=== PATIENT | female | born 1945 | race Caucasian/White ===

== ENCOUNTER 2016-10-13 15:41 | Inpatient (IN) | payer MEDICARE ==
[2016-10-13] MEDS ORDERED: Ondansetron 4 MG/2 ML SDV IVPUSH ONE (15:46)
[2016-10-13] MEDS ORDERED: Sodium Chloride 0.9% 10 ML Syringe FLUSH PRN (15:46)
[2016-10-13] MEDS ORDERED: Albuterol/Ipratropium 3.0-0.5 MG/3 ML Neb Soln NEB ONE (15:49)
[2016-10-13] MEDS ORDERED: Sodium Chloride 0.9% 1,000 ML IV SCH (16:00)
--- NOTE | 2016-10-13 16:02 | EDM.PDOC ---
ED HPI GI/ABDOMINAL - General Chief Complaint: Gastrointestinal Problem Stated Complaint: Diarrhea; N/V; Fever Time Seen by Provider: 10/13/16 15:43 Source of Information: Reports: Patient, Family, RN, RN notes reviewed History Limitations: Reports: No limitations - History of Present Illness INITIAL COMMENTS - FREE TEXT/NARRATIVE: Patient presents to the ED at [facility] with a one day history of fever, N/ V, and severe diarrhea. Patient states she feels chronically weak. She currently denies any chest pain. She does complain of SOB because she did not take her COPD meds this morning. She states he abdomen has been very crampy over the last 24 hours. She does have a cough, but states it from her COPD. She states she had several watery, foul-smelling stool since yesterday. She is not sure how many times she has vomited. She states her appetite has been poor. She has not been staying well hydrated over the past few days since she has been feeling too sick. - Related Data Allergies/ADRs: Allergies Allergy/AdvReac Type Severity Reaction Status Date / Time hydrocodone AdvReac Dizziness Verified 10/13/16 15:48 meperidine HCl [From Demerol] AdvReac Vomiting Verified 10/13/16 15:48 tramadol AdvReac Nausea Verified 10/13/16 15:48 Home Meds: Home Meds Albuterol [Proair HFA] 1 puff INH Q4HR PRN 12/24/14 [History] Aspirin [Ecotrin] 162.5 mg PO DAILY 12/24/14 [History] Cimetidine 200 mg PO BID 12/24/14 [History] Denosumab [Prolia] 60 mg SUBCUT ASDIRECTED 12/24/14 [History] Docusate Sodium [Colace] 100 mg PO DAILY 12/24/14 [History] Hydroxychloroquine Sulfate [Plaquenil] 200 mg PO BID 12/24/14 [History] Simvastatin [Zocor] 10 mg PO BEDTIME tablet 12/24/14 [Rx] predniSONE [Prednisone] 1 tab PO DAILY 12/24/14 [History] sulfaSALAzine 1,500 mg PO BID tablet 12/24/14 [Rx] Calcium Carbonate [Calcium] 1,000 mg PO BID 10/29/15 [History] Cholecalciferol (Vitamin D3) [Vitamin D3] 1,000 unit PO DAILY 10/29/15 [History] Gabapentin [Neurontin] 300 mg PO TID 10/29/15 [History] Leflunomide [Arava] 10 mg PO DAILY 06/11/16 [History] Ferrous Sulfate 325 mg PO WITHBREAKFAST #30 tablet 07/17/16 [Rx] Tiotropium [Spiriva HandiHaler] 18 mcg INH DAILY 10/13/16 [History] Past Medical History HEENT History: Reports: Epistaxis Cardiovascular History: Reports: High cholesterol, Other (see below) Other Cardiovascular History: proxysmal ventricular tachycardia, mitral stenosis , mitral insufficiency, chronic chest pain Respiratory History: Reports: COPD, Other (see below) Other Respiratory History: mycobacterium avium-intracellulare complex Gastrointestinal History: Reports: GERD, Hemorrhoids, Pancreatitis Genitourinary History: Reports: None 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: Musculoskeletal History: Reports: Osteoporosis, RA, Other (see below) Other Musculoskeletal History: chronic pain, sciatic pain, left shoulder pain, radicular leg pain Neurological History: Reports: CVA Psychiatric History: Reports: None Endocrine/Metabolic History: Reports: None Hematologic History: Reports: Anemia Immunologic History: Reports: Immunosuppression (on arava, sulfasalazine, and plaquenil for RA) Oncologic (Cancer) History: Reports: None Dermatologic History: Reports: None - Infectious Disease History Infectious Disease History: Reports: Other (see below) (history of MAC) - Past Surgical History HEENT Surgical History: Reports: Cataract surgery, Tonsillectomy, Other (see below) Other HEENT Surgeries/Procedures: Vocal cord surgery, nasal sinus endoscopy Respiratory Surgical History: Reports: Lung Resection, Other (see below) Other Respiratory Surgeries/Procedures: Left upper lung GI Surgical History: Reports: Cholecystectomy Female Surgical History: Reports: Tubal ligation Dermatological Surgical History: Reports: None Social & Family History - Family History Family Medical History: Noncontributory Respiratory: Reports: Asthma, COPD Endocrine/Metabolic: Reports: Diabetes, type II Oncologic: Reports: Pancreatic - Tobacco Use Smoking Status *Q: Former Smoker Years of Tobacco use: 40 Packs/Tins Daily: 0.5 Used Tobacco, but Quit: Yes Month Tobacco Last Used: 08/25/2007 Second Hand Smoke Exposure: No - Caffeine Use Caffeine Use: Reports: Coffee - Alcohol Use Days Per Week of Alcohol Use: 0 - Recreational Drug Use Recreational Drug Use: No - Living Situation & Occupation Living situation: Reports: , with significant other ED ROS GENERAL - Review of Systems Review Of Systems: See Below Constitutional: Reports: fever, weakness, decreased appetite, weight loss. Denies: chills HEENT: Reports: No symptoms Respiratory: Reports: shortness of breath, wheezing, cough Cardiovascular: Denies: Chest pain, Palpitations GI/Abdominal: Reports: Abdominal pain, Diarrhea, Nausea, Vomiting. Denies: Black stool, Bloody stool Skin: Reports: no symptoms Neurological: Reports: no symptoms. Denies: dizziness, headache, numbness, paresthesia, tingling ED EXAM, GI/ABD - Physical Exam Exam: See Below Exam Limited By: No limitations General Appearance: alert, no apparent distress, thin, cachetic Respiratory/Chest: no respiratory distress, decreased breath sounds, wheezing Cardiovascular: no edema, tachycardia (rhythm regular) GI/Abdominal: soft, hyperactive bowel sounds, tenderness. No: distention, guarding, rebound Extremities: pallor Neurological: alert, oriented, slow to respond Skin Exam: Warm, Dry, Intact, No rash EKG INTERPRETATION EKG Date: 10/13/16 Time: 16:04 Rhythm: NSR Rate (beats/min): 107 [place]: normal P-wave: present QRS: normal ST-T: normal QT: normal WA/PQ Interval: 0.14 Comparison: NA - no prior EKG EKG Interpretation Comments: 1. Sinus Tachycardia 2. Lead unsuitable for analysis: V2 3. Left ventricular hypertrophy 4. Inferior/Lateral ST-T changes are probably due to ventricular hypertrophy Course - Vital Signs Last Recorded V/S: Last Vital Signs Temp 38.4 C H 10/13/16 15:57 Pulse 119 H 10/13/16 15:57 Resp 20 10/13/16 15:57 BP 149/88 H 10/13/16 15:57 Pulse Ox 93 L 10/13/16 15:57 - Orders/Labs/Meds Orders: Active Orders 24 hr Category Date Time Status EKG 12 Lead [EKG Documentation Completion] [RC] STAT Care 10/13/16 15:46 Active RT Aerosol Therapy [RC] ASDIRECTED Care 10/13/16 15:49 Active Abdomen Series w Chest 1V [CR] Stat Exams 10/13/16 17:10 Ordered CULTURE BLOOD [BC] Stat Lab 10/13/16 16:20 Results CULTURE BLOOD [BC] Stat Lab 10/13/16 16:30 Results Sodium Chloride 0.9% [Normal Saline] 1,000 ml Med 10/13/16 16:00 Active IV ASDIRECTED Sodium Chloride 0.9% [Saline Flush] Med 10/13/16 15:46 Active 10 ml FLUSH ASDIRECTED PRN Blood Culture x2 Reflex Set [OM.PC] Stat Oth 10/13/16 16:09 Ordered Peripheral IV Insertion Adult [OM.PC] Routine Oth 10/13/16 15:46 Ordered Medication Orders Sodium Chloride (Normal Saline) 1,000 mls @ 999 mls/hr IV ASDIRECTED YOUSUF Last Admin: 10/13/16 16:16 Dose: 999 mls/hr Sodium Chloride (Saline Flush) 10 ml FLUSH ASDIRECTED PRN PRN Reason: Keep Vein Open Labs: Laboratory Tests 10/13/16 10/13/16 10/13/16 Range/Units 16:20 16:20 16:30 WBC 8.0 (4.0-10.0) x10^3/uL RBC 4.15 (4.00-5.50) x10^6/uL Hgb 12.2 (12.0-16.0) g/dL Hct 38.7 (33.0-47.0) % MCV 93.3 H (78.0-93.0) fL MCH 29.4 (26.0-32.0) pg MCHC 31.5 L (32.0-36.0) g/dL RDW Coeff of Cornelius 14.5 (10.0-15.0) % Plt Count 202 (130-400) x10^3/uL Neut % (Auto) 67.6 (50.0-80.0) % Lymph % (Auto) 18.3 L (25.0-50.0) % Bay % (Auto) 13.0 H (2.0-11.0) % Eos % (Auto) 0.8 (0.0-4.0) % Baso % (Auto) 0.3 (0.2-1.2) % POC ABG pH (7.35-7.45) POC ABG pCO2 (35-45) mmHG POC ABG pO2 (80-105) mmHG POC ABG HCO3 (22-26) mmol/L POC ABG Total CO2 (23-27) mmol/L POC ABG O2 Sat (95-98) % POC ABG Base Excess (-2-3) mmol/L POC FiO2 Sodium 138 (136-145) mmol/L Potassium 3.9 (3.5-5.1) mmol/L Chloride 103 (98-107) mmol/L Carbon Dioxide 16 L (21-32) mmol/L BUN 26 H (7-18) mg/dL Creatinine 1.1 H (0.55-1.02) mg/dL Est Cr Clr Drug Dosing 30.66 mL/min Estimated GFR (MDRD) 49 Glucose 69 L (74-106) mg/dL Lactic Acid 3.1 H (0.4-2.0) mmol/L Calcium 8.1 L (8.5-10.1) mg/dL Corrected Calcium 8.58 (8.5-10.1) mg/dL Phosphorus 3.5 (2.6-4.7) mg/dL Magnesium 1.5 L (1.8-2.4) mg/dL Total Bilirubin 0.4 (0.2-1.0) mg/dL AST 32 (15-37) U/L ALT 17 (14-59) U/L Alkaline Phosphatase 48 (46-116) U/L C-Reactive Protein 8.9 H (<=0.9) mg/dL Total Protein 7.0 (6.4-8.2) g/dL Albumin 3.4 (3.4-5.0) g/dL Globulin 3.6 Albumin/Globulin Ratio 0.94 Amylase 85 (25-115) U/L Lipase 176 (73-393) U/L POC Result Comm Urine Color (YELLOW) Urine Appearance (CLEAR) Urine pH (5.0-8.0) Ur Specific [place] Urine Protein (NEGATIVE) mg/dL Urine Glucose (UA) (NEGATIVE) mg/dL Urine Ketones (NEGATIVE) mg/dL Urine Occult Blood (NEGATIVE) Urine Nitrite (NEGATIVE) Urine Bilirubin (NEGATIVE) Urine Urobilinogen (0.2) EU/dL Ur Leukocyte Esterase (NEGATIVE) Urine RBC (NOT SEEN) /HPF Urine WBC (NOT SEEN) /HPF Ur Squamous Epith Cells (NEGATIVE) /HPF Urine Bacteria (NEGATIVE) /HPF Hyaline Casts (NEGATIVE) /HPF Urine Mucus (NEGATIVE) /LPF 10/13/16 10/13/16 Range/Units 16:46 17:17 WBC (4.0-10.0) x10^3/uL RBC (4.00-5.50) x10^6/uL Hgb (12.0-16.0) g/dL Hct (33.0-47.0) % MCV (78.0-93.0) fL MCH (26.0-32.0) pg MCHC (32.0-36.0) g/dL RDW Coeff of Cornelius (10.0-15.0) % Plt Count (130-400) x10^3/uL Neut % (Auto) (50.0-80.0) % Lymph % (Auto) (25.0-50.0) % Bay % (Auto) (2.0-11.0) % Eos % (Auto) (0.0-4.0) % Baso % (Auto) (0.2-1.2) % POC ABG pH 7.283 L* (7.35-7.45) POC ABG pCO2 27 L (35-45) mmHG POC ABG pO2 58 L* (80-105) mmHG POC ABG HCO3 13 L (22-26) mmol/L POC ABG Total CO2 13 L (23-27) mmol/L POC ABG O2 Sat 87 L (95-98) % POC ABG Base Excess -14 L (-2-3) mmol/L POC FiO2 0.21 Sodium (136-145) mmol/L Potassium (3.5-5.1) mmol/L Chloride (98-107) mmol/L Carbon Dioxide (21-32) mmol/L BUN (7-18) mg/dL Creatinine (0.55-1.02) mg/dL Est Cr Clr Drug Dosing mL/min Estimated GFR (MDRD) Glucose (74-106) mg/dL Lactic Acid (0.4-2.0) mmol/L Calcium (8.5-10.1) mg/dL Corrected Calcium (8.5-10.1) mg/dL Phosphorus (2.6-4.7) mg/dL Magnesium (1.8-2.4) mg/dL Total Bilirubin (0.2-1.0) mg/dL AST (15-37) U/L ALT (14-59) U/L Alkaline Phosphatase (46-116) U/L C-Reactive Protein (<=0.9) mg/dL Total Protein (6.4-8.2) g/dL Albumin (3.4-5.0) g/dL Globulin Albumin/Globulin Ratio Amylase (25-115) U/L Lipase (73-393) U/L POC Result Comm Called critical res Urine Color Yellow (YELLOW) Urine Appearance Clear (CLEAR) Urine pH 6.0 (5.0-8.0) Ur Specific [place] >=1.030 Urine Protein 30 H (NEGATIVE) mg/dL Urine Glucose (UA) Negative (NEGATIVE) mg/dL Urine Ketones 80 H (NEGATIVE) mg/dL Urine Occult Blood Negative (NEGATIVE) Urine Nitrite Negative (NEGATIVE) Urine Bilirubin Moderate H (NEGATIVE) Urine Urobilinogen 0.2 (0.2) EU/dL Ur Leukocyte Esterase Negative (NEGATIVE) Urine RBC 0-5 (NOT SEEN) /HPF Urine WBC 0-5 (NOT SEEN) /HPF Ur Squamous Epith Cells Rare (NEGATIVE) /HPF Urine Bacteria Not seen (NEGATIVE) /HPF Hyaline Casts Rare H (NEGATIVE) /HPF Urine Mucus Few H (NEGATIVE) /LPF Meds: Medications Generic Name Dose Route Start Last Admin Trade Name Freq PRN Reason Stop Dose Admin Sodium Chloride 1,000 mls @ 999 mls/hr 10/13/16 16:00 10/13/16 16:16 Normal Saline IV 999 mls/hr ASDIRECTED YOUSUF Administration Sodium Chloride 10 ml 10/13/16 15:46 Saline Flush FLUSH ASDIRECTED PRN Keep Vein Open Discontinued Medications Generic Name Dose Route Start Last Admin Trade Name Freq PRN Reason Stop Dose Admin Albuterol/Ipratropium 3 ml 10/13/16 15:49 10/13/16 16:16 Duoneb 3.0-0.5 Mg/3 Ml NEB 10/13/16 15:50 3 ml ONETIME ONE Administration Ondansetron HCl 4 mg 10/13/16 15:46 10/13/16 16:16 Zofran IVPUSH 10/13/16 15:47 4 mg ONETIME ONE Administration Departure - Departure Time of Disposition: 17:30 Disposition: Admitted As Inpatient 64 Condition: fair Clinical Impression: Influenza A, Dehydration fever, COPD exacerbation, Diarrhea in adult patient Nausea & vomiting Qualifiers: Vomiting type: bilious vomiting Qualified Code(s): R11.14 - Bilious vomiting Referrals: Annabel Seals DO [Primary Care Provider] - ED Communication - ED Communication Date/Time Date: 10/13/16 Time Called: 17:29 - Discussed Case With (1) Discussed Case With (1): Admitting Provider Person/s Notified (1): Annabel Seals - Conversation Summary Admitting Provider Agreed to Patient's Admission: Yes Summary Comment: Patient will be admitted acute - Problem List Review Problem List Initiated/Reviewed/Updated: Yes - My Orders Last 24 Hours: My Active Orders 10/13/16 15:46 EKG 12 Lead [EKG Documentation Completion] [RC] STAT Sodium Chloride 0.9% [Saline Flush] 10 ml FLUSH ASDIRECTED PRN Peripheral IV Insertion Adult [OM.PC] Routine 10/13/16 15:49 RT Aerosol Therapy [RC] ASDIRECTED 10/13/16 16:00 Sodium Chloride 0.9% [Normal Saline] 1,000 ml IV ASDIRECTED 10/13/16 16:09 Blood Culture x2 Reflex Set [OM.PC] Stat 10/13/16 16:20 CULTURE BLOOD [BC] Stat 10/13/16 16:30 CULTURE BLOOD [BC] Stat 10/13/16 17:10 Abdomen Series w Chest 1V [CR] Stat - Assessment/Plan Admission H&P: Please use this note as an admission H&P Last 24 Hours: My Active Orders 10/13/16 15:46 EKG 12 Lead [EKG Documentation Completion] [RC] STAT Sodium Chloride 0.9% [Saline Flush] 10 ml FLUSH ASDIRECTED PRN Peripheral IV Insertion Adult [OM.PC] Routine 10/13/16 15:49 RT Aerosol Therapy [RC] ASDIRECTED 10/13/16 16:00 Sodium Chloride 0.9% [Normal Saline] 1,000 ml IV ASDIRECTED 10/13/16 16:09 Blood Culture x2 Reflex Set [OM.PC] Stat 10/13/16 16:20 CULTURE BLOOD [BC] Stat 10/13/16 16:30 CULTURE BLOOD [BC] Stat 10/13/16 17:10 Abdomen Series w Chest 1V [CR] Stat
[2016-10-13] MEDS: Oseltamivir 75 MG Cap PO SCH ×2 (17:45→19:54)
[2016-10-13] MEDS ORDERED: Magnesium Sulfate/Water 2 GM in Premix Bag 1 BAG IV ONE (18:05)
[2016-10-13] MEDS ORDERED: Ondansetron 4 MG/2 ML SDV IVPUSH PRN (18:07)
[2016-10-13] MEDS ORDERED: Albuterol/Ipratropium 3.0-0.5 MG/3 ML Neb Soln NEB PRN (18:08)
[2016-10-13] MEDS ORDERED: Promethazine 25 MG Tab PO PRN (18:20)
[2016-10-13] MEDS ORDERED: Acetaminophen 325 MG Tab PO PRN (18:20)
[2016-10-13] MEDS: Lactated Ringers 1,000 ML IV SCH (18:35)
[2016-10-13] MEDS: methylPREDNISolone Sodium Succinate 40 MG/1 ML SDV IVPUSH SCH (18:38)
--- NOTE | 2016-10-13 18:38 | PCM.HP ---
H&P History of Present Illness - General Date of Service: 10/13/16 Source of Information: Patient History Limitations: Reports: No limitations - History of Present Illness Initial Comments - Free Text/Narative: Symptoms started 48 hrs ago with vomiting and diarrhea, diarrhea was frequent and watery, she even had an incontinent stool in the ER. She denies stomach pain currently she hasn't been able to eating anything or take her pills all day. She has been dry heaving and started with fever and chills in the last day. She had a sore throat and cough and felt SOB today but is better now after a neb in the ER. She feels weak. She did have her flu shot this year. She is on immunosuppression for RA. She has lost weight over the last few days. Duration of Symptoms: Reports: Day(s): Context: Denies: sick contact Associated Symptoms: Reports: cough, cough w sputum, fever/chills, loss of appetite, malaise, nausea/vomiting, shortness of breath, weakness. Denies: confusion, chest pain - Related Data Allergies/Adverse Reactions: Allergies Allergy/AdvReac Type Severity Reaction Status Date / Time hydrocodone AdvReac Dizziness Verified 10/13/16 17:59 meperidine HCl [From Demerol] AdvReac Vomiting Verified 10/13/16 17:59 tramadol AdvReac Nausea Verified 10/13/16 17:59 Home Medications: Home Meds Albuterol [Proair HFA] 1 puff INH Q4HR PRN 12/24/14 [History] Aspirin [Ecotrin] 162.5 mg PO DAILY 12/24/14 [History] Cimetidine 0 mg PO BID 12/24/14 [History] Denosumab [Prolia] 60 mg SUBCUT ASDIRECTED 12/24/14 [History] Docusate Sodium [Colace] 100 mg PO DAILY 12/24/14 [History] Hydroxychloroquine Sulfate [Plaquenil] 200 mg PO BID 12/24/14 [History] Simvastatin [Zocor] 10 mg PO BEDTIME tablet 12/24/14 [Rx] predniSONE [Prednisone] 1 tab PO DAILY 12/24/14 [History] sulfaSALAzine 1,500 mg PO BID tablet 12/24/14 [Rx] Calcium Carbonate [Calcium] 1,000 mg PO BID 10/29/15 [History] Cholecalciferol (Vitamin D3) [Vitamin D3] 1,000 unit PO DAILY 10/29/15 [History] Gabapentin [Neurontin] 300 mg PO TID 10/29/15 [History] Leflunomide [Arava] 10 mg PO DAILY 06/11/16 [History] Diltiazem [Cardizem] 30 mg PO BID 10/13/16 [History] Iodine [Kelp] 0 mcg PO ASDIRECTED 10/13/16 [History] Tiotropium [Spiriva HandiHaler] 18 mcg INH DAILY 10/13/16 [History] Past Medical History HEENT History: Reports: Epistaxis Cardiovascular History: Reports: Afib (remote history of while ill), Heart murmur, High cholesterol, Other (see below) (mitral regurgitation) Other Cardiovascular History: proxysmal ventricular tachycardia, mitral stenosis , mitral insufficiency, chronic chest pain Respiratory History: Reports: COPD, Other (see below) Other Respiratory History: mycobacterium avium-intracellulare complex Gastrointestinal History: Reports: GERD, Hemorrhoids, Pancreatitis Genitourinary History: Reports: None [employer] History: Reports: Musculoskeletal History: Reports: Osteoporosis, RA, Other (see below) Other Musculoskeletal History: chronic pain, sciatic pain, left shoulder pain, radicular leg pain Neurological History: Reports: CVA Psychiatric History: Reports: None Endocrine/Metabolic History: Reports: None Hematologic History: Reports: Anemia Immunologic History: Reports: Immunosuppression Oncologic (Cancer) History: Reports: None Dermatologic History: Reports: None - Infectious Disease History Infectious Disease History: Reports: Influenza - Past Surgical History HEENT Surgical History: Reports: Cataract surgery, Tonsillectomy, Other (see below) Other HEENT Surgeries/Procedures: Vocal cord surgery, nasal sinus endoscopy Respiratory Surgical History: Reports: Lung Resection, Other (see below) Other Respiratory Surgeries/Procedures: Left upper lung GI Surgical History: Reports: Cholecystectomy Female Surgical History: Reports: Tubal ligation Dermatological Surgical History: Reports: None Social & Family History - Family History Family Medical History: Noncontributory Respiratory: Reports: Asthma, COPD Endocrine/Metabolic: Reports: Diabetes, type II Oncologic: Reports: Pancreatic - Tobacco Use Smoking Status *Q: Former Smoker Years of Tobacco use: 40 Packs/Tins Daily: 0.5 Used Tobacco, but Quit: Yes Month Tobacco Last Used: 08/25/2007 Second Hand Smoke Exposure: No - Caffeine Use Caffeine Use: Reports: Coffee - Alcohol Use Days Per Week of Alcohol Use: 0 - Recreational Drug Use Recreational Drug Use: No - Living Situation & Occupation Living situation: Reports: , with significant other H&P Review of Systems - Review of Systems: Review Of Systems: See Below General: Reports: fever, chills, malaise, weakness, fatigue, decreased appetite , weight loss HEENT: Reports: sore throat Pulmonary: Reports: shortness of breath, wheezing, cough, sputum. Denies: pleuritic chest pain Cardiovascular: Denies: chest pain Gastrointestinal: Reports: Diarrhea, Nausea, Vomiting. Denies: Abdominal pain Genitourinary: Reports: no symptoms Musculoskeletal: Reports: joint pain, muscle pain Skin: Denies: no symptoms Psychiatric: Reports: no symptoms Neurological: Reports: no symptoms Hematologic/Lymphatic: Reports: anemia Exam - Exam Exam: See Below - Vital Signs Vital Signs: Last Vital Signs Temp 99.3 F 10/13/16 17:55 Pulse 92 10/13/16 17:55 Resp 20 10/13/16 17:55 BP 121/88 10/13/16 17:55 Pulse Ox 93 L 10/13/16 17:55 Weight: 41.141 kg - Exam Quality Assessment: No: supplemental oxygen General: alert, oriented, cooperative HEENT: Conjunctiva clear, EOMI, Hearing intact, Mucosa moist & pink, Posterior pharynx clear, Pupils equal Neck: supple, trachea midline Lungs: Normal respiratory effort, Decreased breath sounds, Wheezing. No: Crackles, Rales Cardiovascular: regular rate, regular rhythm, systolic murmur Abdomen: normal bowel sounds, soft Back Exam: normal inspection Extremities: normal inspection Neurological: cranial nerves intact Neuro Extensive - Mental Status: alert, oriented x3, normal mood/affect, normal cognition, memory intact - Patient Data Result Diagrams: 10/13/16 16:20 10/13/16 16:20 EKG INTERPRETATION EKG Date: 10/13/16 Time: 16:04 Rhythm: NSR Rate (beats/min): 107 [place]: normal P-wave: present QRS: normal ST-T: depressed QT: normal Comparison: no change (ST depression in V5-6 may be slightly more pronounced) EKG Interpretation Comments: LVH likely contributing to ST changes *Q Meaningful Use (ADM) - VTE *Q VTE Criteria *Q: - VTE Risk Assess *Q Each Risk Factor Represents 1 Point: Serious Lung Disease Including Pneumonia, Less than 1 Month Total Score 1 Point Risk Factors: 1 Each Risk Factor Represents 2 Points: Age 60 - 74 Years Total Score 2 Point Risk Factors: 2 - Stroke *Q Stroke Criteria *Q: - AMI *Q AMI Criteria *Q: - Problem List (1) Hypomagnesemia SNOMED Code(s): 663300029 ICD Code: E83.42 - HYPOMAGNESEMIA Status: Acute Priority: High Current Visit: Yes Problem List Initiated/Reviewed/Updated: Yes Orders Last 24hrs: Active Orders 24 hr Category Date Time Status Blood Glucose Check, Bedside [RC] BIDAC Care 10/13/16 18:20 Active IS (RT) [RT Incentive Spirometry] [RC] ASDIRECTED Care 10/13/16 18:23 Active Intake and Output [RC] QSHIFT Care 10/13/16 18:21 Active Oxygen Therapy [RC] .PRN Care 10/13/16 18:20 Active RT Aerosol Therapy [RC] ASDIRECTED Care 10/13/16 18:07 Active RT Aerosol Therapy [RC] ASDIRECTED Care 10/13/16 18:08 Active Telemetry Monitoring [Cardiac Monitoring] [RC] 06,10,14 Care 10/13/16 18:09 Active ,18,22,02 Up With Assistance [RC] 08,20 Care 10/13/16 18:20 Active Vital Signs [RC] 06,10,14,18,22,02 Care 10/13/16 18:20 Active Clear Liquid Diet [DIET] Diet 10/13/16 Dinner Active BASIC METABOLIC PANEL,BMP [CHEM] AM Lab 10/14/16 05:15 Ordered CBC WITH AUTO DIFF [HEME] AM Lab 10/14/16 05:15 Ordered LACTIC ACID [CHEM] Routine Lab 10/13/16 22:00 Ordered Acetaminophen [Tylenol] Med 10/13/16 18:20 Active 650 mg PO Q4H PRN Albuterol/Ipratropium [DuoNeb 3.0-0.5 MG/3 ML] Med 10/13/16 18:08 Active 3 ml NEB Q4HRRT PRN Albuterol/Ipratropium [DuoNeb 3.0-0.5 MG/3 ML] Med 10/13/16 19:00 Active 3 ml NEB Q6HRRT Aspirin [Ecotrin] Med 10/14/16 08:00 Ordered 162.5 mg PO DAILY Diltiazem [Cardizem] Med 10/13/16 20:00 Ordered 30 mg PO BID Enoxaparin [Lovenox] Med 10/14/16 08:00 Active 30 mg SUBCUT DAILY Famotidine [Pepcid] Med 10/13/16 20:00 Active 10 mg PO BID Gabapentin [Neurontin] Med 10/13/16 20:00 Active 300 mg PO TID Lactated Ringers [Ringers, Lactated] 1,000 ml Med 10/13/16 18:30 Active IV ASDIRECTED Magnesium Sulfate/Water [Magnesium Sulfate 2 GM in Med 10/13/16 18:05 Active Water 50 ML] 2 gm Premix Bag 1 bag IV ONETIME Ondansetron [Zofran] Med 10/13/16 18:07 Active 4 mg IVPUSH Q8H PRN Oseltamivir [Tamiflu] Med 10/13/16 17:45 Active 75 mg PO BID Promethazine [Phenergan] Med 10/13/16 18:20 Active 50 mg PO Q6H PRN Simvastatin [Zocor] Med 10/13/16 20:00 Active 10 mg PO BEDTIME methylPREDNISolone Sod Succ [Solu-MEDROL] Med 10/13/16 18:30 Active 40 mg IVPUSH Q12H Resuscitation Status Routine Resus Stat 10/13/16 18:20 Ordered Medication Orders Acetaminophen (Tylenol) 650 mg PO Q4H PRN PRN Reason: Pain (Mild 1-3)/fever Albuterol/Ipratropium (Duoneb 3.0-0.5 Mg/3 Ml) 3 ml NEB Q6HRRT [facility] Albuterol/Ipratropium (Duoneb 3.0-0.5 Mg/3 Ml) 3 ml NEB Q4HRRT PRN PRN Reason: Cough Aspirin (Ecotrin) 162.5 mg PO DAILY [facility] Diltiazem HCl (Cardizem) 30 mg PO BID [facility] Enoxaparin Sodium (Lovenox) 30 mg SUBCUT DAILY [facility] Famotidine (Pepcid) 10 mg PO BID [facility] Gabapentin (Neurontin) 300 mg PO TID [facility] Sodium Chloride (Normal Saline) 1,000 mls @ 999 mls/hr IV ASDIRECTED [facility] Last Admin: 10/13/16 16:16 Dose: 999 mls/hr Magnesium Sulfate 2 gm/ Premix 50 mls @ 25 mls/hr IV ONETIME ONE Stop: 10/13/16 20:04 Lactated Ringer's (Ringers, Lactated) 1,000 mls @ 125 mls/hr IV ASDIRECTED [facility] Methylprednisolone Sodium Succinate (Solu-Medrol) 40 mg IVPUSH Q12H [facility] Ondansetron HCl (Zofran) 4 mg IVPUSH Q8H PRN PRN Reason: Nausea Oseltamivir Phosphate (Tamiflu) 75 mg PO BID [facility] Last Admin: 10/13/16 17:45 Dose: 75 mg Promethazine HCl (Phenergan) 50 mg PO Q6H PRN PRN Reason: nausea, able to take PO Simvastatin (Zocor) 10 mg PO BEDTIME [facility] Sodium Chloride (Saline Flush) 10 ml FLUSH ASDIRECTED PRN PRN Reason: Keep Vein Open Assessment/Plan Comment:: 1. Influenza A 2. COPD exacerbation due to influenza 3. Hypomagnesemia 4. Vomiting and Diarrhea probably related to viral illness (send stool for C. diff given ceftin ABX the end of June) 5. Rheumatoid arthritis (hold medications due to acute illness) 6. Mitral regurgitation and history of A. fib (monitor with tele) 7. Dehydration Plan Tamiflu BID Solumedrol 40 mg IV BID BID accuchecks LR at 125 ml/hr Monitor I and O Repeat lactic at 10 pm and repeat labs in AM Mg 2 grams IV x 1 Zofran IV available Clear liquid diet Oxygen if needed QID and prn duo nebs Send stool for C. diff
[2016-10-13] MEDS: Simvastatin 10 MG Tab PO SCH (19:22)
[2016-10-13] MEDS: Gabapentin 300 MG Cap PO SCH (19:22)
[2016-10-13] MEDS: Diltiazem IR 30 MG Tab PO SCH (19:22)
[2016-10-13] MEDS: Famotidine 20 MG Tab PO SCH (19:22)
[2016-10-13] MEDS: Albuterol/Ipratropium 3.0-0.5 MG/3 ML Neb Soln NEB SCH (19:23)
[2016-10-14] MEDS: Albuterol/Ipratropium 3.0-0.5 MG/3 ML Neb Soln NEB SCH ×4 (00:27→18:24)
[2016-10-14] MEDS: Lactated Ringers 1,000 ML IV SCH (02:19)
[2016-10-14] MEDS: methylPREDNISolone Sodium Succinate 40 MG/1 ML SDV IVPUSH SCH ×2 (05:46→18:23)
[2016-10-14 07:19] LABS: CHLORIDE,CL 105 mmol/L (98-107); SODIUM,NA 137 mmol/L (136-145)
[2016-10-14] MEDS: Enoxaparin 30 MG/0.3 ML Syringe SUBCUT SCH (08:02)
[2016-10-14] MEDS: Gabapentin 300 MG Cap PO SCH ×3 (08:03→19:53)
[2016-10-14] MEDS: Aspirin 325 MG Tab.EC PO SCH (08:03)
[2016-10-14] MEDS: Oseltamivir 75 MG Cap PO SCH ×2 (08:03→19:52)
[2016-10-14] MEDS: Diltiazem IR 30 MG Tab PO SCH ×2 (08:03→19:52)
[2016-10-14] MEDS: Famotidine 20 MG Tab PO SCH ×2 (08:03→19:52)
[2016-10-14] MEDS ORDERED: Calcium Carbonate 750 MG Tab.Chew PO ONE (08:40)
--- NOTE | 2016-10-14 08:49 | PCM.PN ---
- General Info Date of Service: 10/14/16 Admission Dx/Problem (Free Text): 71 yo female seen on hospital rounds following admission to influenza A and gastroenteritis. Patient states that she is doing much better today. Denies nausea or vomiting. Has not had anymore bowel movements since her admission. Denies abdominal pain. She was positive for influenza A in the ER prior to admission. She was started on Tamiflu BID x 5 days. Denies coughing at this time. Does have some rhinorrhea but this is minimal. No SOB. she is receiving solumedrol and nebulizers prn. She is not requiring oxygen at this time and O2 is staying in the mid-90's. Lab work this morning showed a WBC of 4.2 and HGB of 10.0. The HGB did drop from 12.2 last night but this is expected due to IV fluids. Creatinine has improved to 0.8. Calcium is low at 7.4 today. Nursing notes that they were able to advance her diet this morning to include solids. Patient tolerated this well. Patient has no questions or concerns at this time. She is still on c-diff precautions as they have not collected a stool specimen yet. - Review of Systems HEENT: Reports: sinus congestion, rhinitis Pulmonary: Denies: shortness of breath, cough, sputum Gastrointestinal: Denies: Abdominal pain, Diarrhea, Nausea, Vomiting - Patient Data Vitals - most recent: Last Vital Signs Temp 36.9 C 10/14/16 05:52 Pulse 85 10/14/16 05:52 Resp 18 10/14/16 05:52 BP 135/72 10/14/16 05:52 Pulse Ox 96 10/14/16 07:13 Weight - most recent: 41.141 kg I&O - last 24 hours: Intake & Output 10/13/16 10/14/16 10/14/16 22:59 06:59 14:59 Intake Total 1517 400 Output Total 300 Balance 1217 400 Lab Results last 24 hrs: Laboratory Results - last 24 hr 10/13/16 10/14/16 10/14/16 Range/Units 22:48 06:35 06:35 WBC 4.2 (4.0-10.0) x10^3/uL RBC 3.38 L (4.00-5.50) x10^6/uL Hgb 10.0 L (12.0-16.0) g/dL Hct 32.0 L (33.0-47.0) % MCV 94.7 H (78.0-93.0) fL MCH 29.6 (26.0-32.0) pg MCHC 31.3 L (32.0-36.0) g/dL RDW Coeff of Cornelius 14.4 (10.0-15.0) % Plt Count 201 (130-400) x10^3/uL Neut % (Auto) 70.9 (50.0-80.0) % Lymph % (Auto) 17.2 L (25.0-50.0) % Faulk % (Auto) 11.7 H (2.0-11.0) % Eos % (Auto) 0.0 (0.0-4.0) % Baso % (Auto) 0.2 (0.2-1.2) % Sodium 137 (136-145) mmol/L Potassium 3.8 (3.5-5.1) mmol/L Chloride 105 (98-107) mmol/L Carbon Dioxide 24 (21-32) mmol/L BUN 14 (7-18) mg/dL Creatinine 0.8 (0.55-1.02) mg/dL Est Cr Clr Drug Dosing 40.68 mL/min Estimated GFR (MDRD) > 60 Glucose 119 H (74-106) mg/dL POC Glucose (74-106) mg/dL Lactic Acid 1.3 (0.4-2.0) mmol/L Calcium 7.4 L (8.5-10.1) mg/dL 10/14/16 Range/Units 06:40 WBC (4.0-10.0) x10^3/uL RBC (4.00-5.50) x10^6/uL Hgb (12.0-16.0) g/dL Hct (33.0-47.0) % MCV (78.0-93.0) fL MCH (26.0-32.0) pg MCHC (32.0-36.0) g/dL RDW Coeff of Cornelius (10.0-15.0) % Plt Count (130-400) x10^3/uL Neut % (Auto) (50.0-80.0) % Lymph % (Auto) (25.0-50.0) % Faulk % (Auto) (2.0-11.0) % Eos % (Auto) (0.0-4.0) % Baso % (Auto) (0.2-1.2) % Sodium (136-145) mmol/L Potassium (3.5-5.1) mmol/L Chloride (98-107) mmol/L Carbon Dioxide (21-32) mmol/L BUN (7-18) mg/dL Creatinine (0.55-1.02) mg/dL Est Cr Clr Drug Dosing mL/min Estimated GFR (MDRD) Glucose (74-106) mg/dL POC Glucose 109 H (74-106) mg/dL Lactic Acid (0.4-2.0) mmol/L Calcium (8.5-10.1) mg/dL Med Orders - Current: Current Medications Acetaminophen (Tylenol) 650 mg PO Q4H PRN PRN Reason: Pain (Mild 1-3)/fever Albuterol/Ipratropium (Duoneb 3.0-0.5 Mg/3 Ml) 3 ml NEB Q6HRRT [facility] Last Admin: 10/14/16 07:09 Dose: 3 ml Albuterol/Ipratropium (Duoneb 3.0-0.5 Mg/3 Ml) 3 ml NEB Q4HRRT PRN PRN Reason: Cough Aspirin (Ecotrin) 162.5 mg PO DAILY [facility] Last Admin: 10/14/16 08:03 Dose: 162.5 mg Diltiazem HCl (Cardizem) 30 mg PO BID [facility] Last Admin: 10/14/16 08:03 Dose: 30 mg Enoxaparin Sodium (Lovenox) 30 mg SUBCUT DAILY [facility] Last Admin: 10/14/16 08:02 Dose: 30 mg Famotidine (Pepcid) 10 mg PO BID [facility] Last Admin: 10/14/16 08:03 Dose: 10 mg Gabapentin (Neurontin) 300 mg PO TID [facility] Last Admin: 10/14/16 08:03 Dose: 300 mg Methylprednisolone Sodium Succinate (Solu-Medrol) 40 mg IVPUSH Q12H [facility] Last Admin: 10/14/16 05:46 Dose: 40 mg Ondansetron HCl (Zofran) 4 mg IVPUSH Q8H PRN PRN Reason: Nausea Oseltamivir Phosphate (Tamiflu) 75 mg PO BID [facility] Last Admin: 10/14/16 08:03 Dose: 75 mg Promethazine HCl (Phenergan) 50 mg PO Q6H PRN PRN Reason: nausea, able to take PO Simvastatin (Zocor) 10 mg PO BEDTIME [facility] Last Admin: 10/13/16 19:22 Dose: 10 mg Sodium Chloride (Saline Flush) 10 ml FLUSH ASDIRECTED PRN PRN Reason: Keep Vein Open Discontinued Medications Albuterol/Ipratropium (Duoneb 3.0-0.5 Mg/3 Ml) 3 ml NEB ONETIME ONE Stop: 10/13/16 15:50 Last Admin: 10/13/16 16:16 Dose: 3 ml Calcium Carbonate/Glycine (Tums Extra Strength) 750 mg PO ONETIME ONE Stop: 10/14/16 08:41 Sodium Chloride (Normal Saline) 1,000 mls @ 999 mls/hr IV ASDIRECTED [facility] Stop: 10/14/16 00:56 Last Admin: 10/13/16 16:16 Dose: 999 mls/hr Magnesium Sulfate 2 gm/ Premix 50 mls @ 25 mls/hr IV ONETIME ONE Stop: 10/13/16 20:04 Last Admin: 10/13/16 18:38 Dose: 25 mls/hr Lactated Ringer's (Ringers, Lactated) 1,000 mls @ 125 mls/hr IV ASDIRECTED [facility] Last Admin: 10/14/16 02:19 Dose: 125 mls/hr Ondansetron HCl (Zofran) 4 mg IVPUSH ONETIME ONE Stop: 10/13/16 15:47 Last Admin: 10/13/16 16:16 Dose: 4 mg - Exam Quality Assessment: No: supplemental oxygen General: alert, oriented Lungs: Clear to auscultation, Normal respiratory effort. No: Decreased breath sounds, Crackles, Rales, Rhonchi, Wheezing Cardiovascular: regular rate, regular rhythm Abdomen: bowel sounds present, soft, no tenderness, no distension Skin: warm, dry Psy/Mental Status: alert, normal affect, normal mood - Problem List Review Problem List Initiated/Reviewed/Updated: Yes - My Orders Last 24 Hours: My Active Orders 10/14/16 Lunch Advance Diet Instructions [DIET] 10/15/16 05:11 BMP [BASIC METABOLIC PANEL,BMP] [CHEM] Routine CBC WITH AUTO DIFF [HEME] Routine - Plan Plan:: 1. Influenza A 2. COPD exacerbation due to influenza 3. Hypomagnesemia 4. Vomiting and Diarrhea probably related to viral illness (send stool for C. diff given ceftin ABX the end of June) 5. Rheumatoid arthritis (hold medications due to acute illness) 6. Mitral regurgitation and history of A. fib (monitor with tele) 7. Dehydration 8. Hypocalcemia Plan Tamiflu BID Solumedrol 40 mg IV BID BID accuchecks Stop IV fluids due to improved kidney function Monitor I and O Repeat lactic at 10 PM last night normalized to 1.3. Mg 2 grams IV x 1 Zofran IV available We will start to advance her diet as tolerated. Oxygen if needed QID and prn duo nebs Send stool for C. diff One time dose of Tums Extra Strength today with repeat lab tomorrow to check on the calcium level
[2016-10-14] MEDS: Simvastatin 10 MG Tab PO SCH (19:53)
[2016-10-15] MEDS: Albuterol/Ipratropium 3.0-0.5 MG/3 ML Neb Soln NEB SCH ×2 (00:54→07:12)
[2016-10-15] MEDS: methylPREDNISolone Sodium Succinate 40 MG/1 ML SDV IVPUSH SCH (06:38)
[2016-10-15 06:59] LABS: CHLORIDE,CL 109 mmol/L (98-107); SODIUM,NA 143 mmol/L (136-145)
[2016-10-15] MEDS: Aspirin 325 MG Tab.EC PO SCH (07:34)
[2016-10-15] MEDS: Gabapentin 300 MG Cap PO SCH (07:35)
[2016-10-15] MEDS: Enoxaparin 30 MG/0.3 ML Syringe SUBCUT SCH (07:35)
[2016-10-15] MEDS: Famotidine 20 MG Tab PO SCH (07:35)
[2016-10-15] MEDS: Oseltamivir 75 MG Cap PO SCH (07:35)
[2016-10-15] MEDS: Diltiazem IR 30 MG Tab PO SCH (07:35)
[2016-10-15 10:48] VITALS: BP 117/76
--- NOTE | 2016-10-16 03:15 | DISCH ---
PRIMARY DISCHARGE DIAGNOSES: 1. Influenza A with a chronic obstructive pulmonary disease exacerbation. 2. Chronic obstructive pulmonary disease exacerbation with severe underlying chronic obstructive pulmonary disease due to influenza. 3. Hypomagnesemia secondary to nausea and vomiting. 4. Nausea and vomiting secondary to viral gastroenteritis, completely resolved after admission. 5. Dehydration due to nausea and vomiting. Renal function improved from 1.1 down to a creatinine of 0.8 on discharge. 6. Hyperglycemia from steroids. 7. Chronic anemia with stable hemoglobin up from 10 to 10.6 on discharge. 8. Underlying rheumatoid arthritis with immunosuppression. 9. History of mitral regurgitation. 10.Remote history of atrial fibrillation. No atrial fibrillation on telemetry. 11.Sinus tachycardia which had been an ongoing issue. Heart rates all below 120 on discharge. REASON FOR ADMISSION: On the date of admission, this 71-year-old was brought into the ER. She was short of breath, she was having nausea and vomiting for a couple days, she was having a high fever over 101. She did test positive for influenza. She had x-rays that did not show pneumonia. She had abdominal x- rays as well. She received IV Zofran. She received IV magnesium and IV fluids. Overall, her condition continued to improve. White count was normal, but given admission in June getting Ceftin antibiotics, we did order C. diff; however, she had no further stools after admission so that test was canceled. She otherwise was feeling well. She was getting scheduled nebs 4 times a day, but not using any p.r.n. nebs. She was doing incentive spirometry. She was tolerating a diet and stable for discharge. The patient was not requiring any oxygen. She is on inhalers at home, but did not use nebulizers. She did not feel she would need nebulizers and her prednisone was given. Solu-Medrol as her rheumatoid arthritis medication was held 40 mg twice daily with one blood sugar up to 234 in the evening of 10/14, likely due to steroids. DISCHARGE PLANS AND INSTRUCTIONS: She will follow up with Dr. Seals in the clinic on 10/30. She will take prednisone 20 mg daily for another 5 days, Tamiflu for another 5 doses. She will resume her Plaquenil tomorrow. She may resume her Arava and sulfasalazine in 5 days. She will go back to 2.5 mg of prednisone at that time. Otherwise, she may monitor her heart rates at home. She was encouraged to wait to exercise until she sees Dr. Seals back in the clinic. PHYSICAL EXAMINATION: Discharge Vital Signs: Temp 97.8, pulse 102, blood pressure 144/95, respiratory rate 18, and O2 of 97% on room air. General: She is in no acute distress. Heart: Regular rate and rhythm with murmur. Lungs: Lung sounds are clear to auscultation bilaterally without crackles or wheezes. It is mildly decreased throughout, but much improved since admission. Abdomen: Has positive bowel sounds. Soft and nontender. Extremities: Warm and dry. No edema. Mental Status: She is alert and orientated x3. Otherwise no lab work will be due at her followup visit. She did receive Lovenox for DVT prophylaxis during her stay. MKA: 10/15/2016 08:33:08 MODL: 10/16/2016 03:08:23 /[id number]
[2016-10-16] MEDS ORDERED: Aspirin 81 MG Tab.EC PO SCH (08:00)
== END 2016-10-15 11:54 | disposition home or self-care (01) | DRG 194 ==
LOC: VM.ED 15:41 → VM.MS 17:37
PROVIDERS: ADMIT Internal Medicine; ATTEND Internal Medicine
DX: J10.1 Influenza due to other identified influenza virus with other respiratory manifestations (principal); R11.2 Nausea with vomiting, unspecified; R19.7 Diarrhea, unspecified; J44.9 Chronic obstructive pulmonary disease, unspecified; J44.1 Chronic obstructive pulmonary disease with (acute) exacerbation; Z79.82 Long term (current) use of aspirin; E78.00 Pure hypercholesterolemia, unspecified; K21.9 Gastro-esophageal reflux disease without esophagitis; D64.9 Anemia, unspecified; E86.0 Dehydration; E83.42 Hypomagnesemia; M06.9 Rheumatoid arthritis, unspecified; R00.0 Tachycardia, unspecified; I48.91 Unspecified atrial fibrillation; R73.9 Hyperglycemia, unspecified; T38.0X5A Adverse effect of glucocorticoids and synthetic analogues, initial encounter; E83.51 Hypocalcemia; A08.4 Viral intestinal infection, unspecified
CPT/HCPCS: 36415; 36600; 74022; 80053; 81001; 82150; 82803; 83605; 83690; 83735; 84100; 85025; 86140; 87040 ×2; 87804 ×2; 93005; 94640; 96361; 96374; 99285; J2405; J7030; 80048; 82962; 94760; A9270-GY; J1650; J2920; J3475; J7050; J7120

== ENCOUNTER 2016-10-20 10:56 | Inpatient (IN) | payer MEDICARE ==
--- NOTE | 2016-10-20 11:34 | EDM.PDOC ---
ED HISTORY OF PRESENT ILLNESS - General Chief Complaint: Respiratory Problem Stated Complaint: DEHYDRATED; SOB Time Seen by Provider: 10/20/16 10:57 Source of Information: Reports: Patient, Family, RN, RN notes reviewed History Limitations: Reports: No limitations - History of Present Illness INITIAL COMMENTS - FREE TEXT/NARRATIVE: Patient is brought to the ED at [facility] with increase weakness, worsening SOB, and dehydration. Patient was recently discharged from this facility 5 days ago. Patient was admitted for Influenza A in the setting of Acute on Chronic COPD exacerbation. Patient states she has not felt any better since her discharge. She really seems to have a failure to thrive. No N/V/D. SOB is actually chronic due to her COPD. No focal neurological deficits. Patient denies any chest pain. - Related Data Allergies/ADRs: Allergies Allergy/AdvReac Type Severity Reaction Status Date / Time hydrocodone AdvReac Dizziness Verified 10/13/16 17:59 meperidine HCl [From Demerol] AdvReac Vomiting Verified 10/13/16 17:59 tramadol AdvReac Nausea Verified 10/13/16 17:59 Home Meds: Home Meds Albuterol [Proair HFA] 1 puff INH Q4HR PRN 12/24/14 [History] Aspirin [Ecotrin] 162.5 mg PO DAILY 12/24/14 [History] Cimetidine 0 mg PO BID 12/24/14 [History] Denosumab [Prolia] 60 mg SUBCUT ASDIRECTED 12/24/14 [History] Docusate Sodium [Colace] 100 mg PO DAILY 12/24/14 [History] Hydroxychloroquine Sulfate [Plaquenil] 200 mg PO BID 12/24/14 [History] Simvastatin [Zocor] 10 mg PO BEDTIME tablet 12/24/14 [Rx] predniSONE [Prednisone] 1 tab PO DAILY 12/24/14 [History] sulfaSALAzine 1,500 mg PO BID tablet 12/24/14 [Rx] Calcium Carbonate [Calcium] 1,000 mg PO BID 10/29/15 [History] Cholecalciferol (Vitamin D3) [Vitamin D3] 1,000 unit PO DAILY 10/29/15 [History] Gabapentin [Neurontin] 300 mg PO TID 10/29/15 [History] Leflunomide [Arava] 10 mg PO DAILY 06/11/16 [History] Diltiazem [Cardizem] 30 mg PO BID 10/13/16 [History] Iodine [Kelp] 0 mcg PO ASDIRECTED 10/13/16 [History] Tiotropium [Spiriva HandiHaler] 18 mcg INH DAILY 10/13/16 [History] Oseltamivir Phosphate [IJD: Tamiflu] 75 mg PO BID #5 capsule 10/15/16 [Rx] predniSONE [Prednisone] 20 mg PO DAILY #5 tablet 10/15/16 [Rx] Past Medical History HEENT History: Reports: Epistaxis Cardiovascular History: Reports: Afib (remote history of while ill), Heart murmur, High cholesterol, Other (see below) (mitral regurgitation) Other Cardiovascular History: proxysmal ventricular tachycardia, mitral stenosis , mitral insufficiency, chronic chest pain Respiratory History: Reports: COPD, Other (see below) Other Respiratory History: mycobacterium avium-intracellulare complex Gastrointestinal History: Reports: GERD, Hemorrhoids, Pancreatitis Genitourinary History: Reports: 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: Musculoskeletal History: Reports: Osteoporosis, RA, Other (see below) Other Musculoskeletal History: chronic pain, sciatic pain, left shoulder pain, radicular leg pain Neurological History: Reports: CVA Psychiatric History: Reports: None Endocrine/Metabolic History: Reports: None Hematologic History: Reports: Anemia Immunologic History: Reports: Immunosuppression Oncologic (Cancer) History: Reports: None Dermatologic History: Reports: None - Infectious Disease History Infectious Disease History: Reports: Influenza - Past Surgical History HEENT Surgical History: Reports: Cataract surgery, Tonsillectomy, Other (see below) Other HEENT Surgeries/Procedures: Vocal cord surgery, nasal sinus endoscopy Respiratory Surgical History: Reports: Lung Resection, Other (see below) Other Respiratory Surgeries/Procedures: Left upper lung GI Surgical History: Reports: Cholecystectomy Female Surgical History: Reports: Tubal ligation Dermatological Surgical History: Reports: None Social & Family History - Family History Family Medical History: Noncontributory Respiratory: Reports: Asthma, COPD Endocrine/Metabolic: Reports: Diabetes, type II Oncologic: Reports: Pancreatic - Tobacco Use Smoking Status *Q: Former Smoker Years of Tobacco use: 40 Packs/Tins Daily: 0.5 Used Tobacco, but Quit: Yes Month Tobacco Last Used: 08/25/2007 Second Hand Smoke Exposure: No - Caffeine Use Caffeine Use: Reports: Coffee - Alcohol Use Days Per Week of Alcohol Use: 0 - Recreational Drug Use Recreational Drug Use: No - Living Situation & Occupation Living situation: Reports: , with significant other ED ROS GENERAL - Review of Systems Review Of Systems: See Below Constitutional: Reports: fever, weakness, decreased appetite. Denies: chills HEENT: Reports: No symptoms Respiratory: Reports: shortness of breath, wheezing, cough, sputum. Denies: hemoptysis Cardiovascular: Reports: Dyspnea on exertion. Denies: Chest pain, Lightheadedness, Palpitations GI/Abdominal: Denies: Abdominal pain, Diarrhea, Nausea, Vomiting Skin: Reports: dryness Neurological: Denies: dizziness, headache, numbness, paresthesia, tingling ED EXAM, GENERAL - Physical Exam Exam: See Below Exam Limited By: No limitations General Appearance: alert, no apparent distress, thin, cachetic Eye Exam: bilateral eye: EOMI, normal inspection, PERRL Ears: normal external exam, normal canal, hearing grossly normal, normal TMs Ear Exam: bilateral ear: TM normal Nose: normal inspection, normal mucosa Throat/Mouth: Normal inspection, Normal oropharynx, No airway compromise Neck: supple Respiratory/Chest: decreased breath sounds, rhonchi, wheezing Cardiovascular: regular rate, rhythm, no edema GI/Abdominal: soft, non tender, abnormal bowel sounds: (hypoactive) Neurological: alert, oriented Skin Exam: Warm, Dry, Intact, Normal color, No rash Course - Vital Signs Last Recorded V/S: Last Vital Signs Temp 38.0 C 10/20/16 11:05 Pulse 116 H 10/20/16 11:05 Resp 28 H 10/20/16 11:05 BP 120/76 10/20/16 11:05 Pulse Ox 94 L 10/20/16 11:05 - Orders/Labs/Meds Orders: Active Orders 24 hr Category Date Time Status Admission Status [Patient Status] [ADT] Routine ADT 10/20/16 12:36 Ordered Oxygen Therapy Adult [Oxygen Therapy, ED] [RC] Care 10/20/16 11:05 Active ASDIRECTED Chest 2V [CR] Stat Exams 10/20/16 11:38 Taken Sodium Chloride 0.9% [Saline Flush] Med 10/20/16 11:36 Active 10 ml FLUSH ASDIRECTED PRN Peripheral IV Insertion Adult [OM.PC] Routine Oth 10/20/16 11:36 Ordered Medication Orders Sodium Chloride (Saline Flush) 10 ml FLUSH ASDIRECTED PRN PRN Reason: Keep Vein Open Labs: Laboratory Tests 10/20/16 10/20/16 10/20/16 Range/Units 11:48 11:48 11:48 WBC 9.8 (4.0-10.0) x10^3/uL RBC 3.86 L (4.00-5.50) x10^6/uL Hgb 11.4 L (12.0-16.0) g/dL Hct 35.1 (33.0-47.0) % MCV 90.9 (78.0-93.0) fL MCH 29.5 (26.0-32.0) pg MCHC 32.5 (32.0-36.0) g/dL RDW Coeff of Cornelius 14.3 (10.0-15.0) % Plt Count 295 (130-400) x10^3/uL Neut % (Auto) 79.1 (50.0-80.0) % Lymph % (Auto) 8.8 L (25.0-50.0) % Placer % (Auto) 10.7 (2.0-11.0) % Eos % (Auto) 1.3 (0.0-4.0) % Baso % (Auto) 0.1 L (0.2-1.2) % POC ABG pH (7.35-7.45) POC ABG pCO2 (35-45) mmHG POC ABG pO2 (80-105) mmHG POC ABG HCO3 (22-26) mmol/L POC ABG Total CO2 (23-27) mmol/L POC ABG O2 Sat (95-98) % POC ABG Base Excess (-2-3) mmol/L POC FiO2 Sodium 137 (136-145) mmol/L Potassium 3.0 L (3.5-5.1) mmol/L Chloride 98 (98-107) mmol/L Carbon Dioxide 25 (21-32) mmol/L BUN 35 H (7-18) mg/dL Creatinine 1.2 H (0.55-1.02) mg/dL Est Cr Clr Drug Dosing 28.40 mL/min Estimated GFR (MDRD) 44 Glucose 97 (74-106) mg/dL Lactic Acid 1.8 (0.4-2.0) mmol/L Calcium 8.6 (8.5-10.1) mg/dL C-Reactive Protein 50.1 H (<=0.9) mg/dL 10/20/16 Range/Units 12:15 WBC (4.0-10.0) x10^3/uL RBC (4.00-5.50) x10^6/uL Hgb (12.0-16.0) g/dL Hct (33.0-47.0) % MCV (78.0-93.0) fL MCH (26.0-32.0) pg MCHC (32.0-36.0) g/dL RDW Coeff of Cornelius (10.0-15.0) % Plt Count (130-400) x10^3/uL Neut % (Auto) (50.0-80.0) % Lymph % (Auto) (25.0-50.0) % Placer % (Auto) (2.0-11.0) % Eos % (Auto) (0.0-4.0) % Baso % (Auto) (0.2-1.2) % POC ABG pH 7.447 (7.35-7.45) POC ABG pCO2 31 L (35-45) mmHG POC ABG pO2 89 (80-105) mmHG POC ABG HCO3 22 (22-26) mmol/L POC ABG Total CO2 23 (23-27) mmol/L POC ABG O2 Sat 97 (95-98) % POC ABG Base Excess -2 (-2-3) mmol/L POC FiO2 0.28 Sodium (136-145) mmol/L Potassium (3.5-5.1) mmol/L Chloride (98-107) mmol/L Carbon Dioxide (21-32) mmol/L BUN (7-18) mg/dL Creatinine (0.55-1.02) mg/dL Est Cr Clr Drug Dosing mL/min Estimated GFR (MDRD) Glucose (74-106) mg/dL Lactic Acid (0.4-2.0) mmol/L Calcium (8.5-10.1) mg/dL C-Reactive Protein (<=0.9) mg/dL Meds: Medications Generic Name Dose Route Start Last Admin Trade Name Freq PRN Reason Stop Dose Admin Sodium Chloride 10 ml 10/20/16 11:36 Saline Flush FLUSH ASDIRECTED PRN Keep Vein Open Departure - Departure Time of Disposition: 12:37 Disposition: Refer to Observation Condition: fair Clinical Impression: Weakness, Dehydration - Problem List Review Problem List Initiated/Reviewed/Updated: Yes - My Orders Last 24 Hours: My Active Orders 10/20/16 11:05 Oxygen Therapy Adult [Oxygen Therapy, ED] [] ASDIRECTED 10/20/16 11:36 Sodium Chloride 0.9% [Saline Flush] 10 ml FLUSH ASDIRECTED PRN Peripheral IV Insertion Adult [OM.PC] Routine 10/20/16 11:38 Chest 2V [CR] Stat 10/20/16 12:36 Admission Status [Patient Status] [ADT] Routine - Assessment/Plan Last 24 Hours: My Active Orders 10/20/16 11:05 Oxygen Therapy Adult [Oxygen Therapy, ED] [RC] ASDIRECTED 10/20/16 11:36 Sodium Chloride 0.9% [Saline Flush] 10 ml FLUSH ASDIRECTED PRN Peripheral IV Insertion Adult [OM.PC] Routine 10/20/16 11:38 Chest 2V [CR] Stat 10/20/16 12:36 Admission Status [Patient Status] [ADT] Routine
[2016-10-20] MEDS ORDERED: Sodium Chloride 0.9% 10 ML Syringe FLUSH PRN (11:36)
[2016-10-20] MEDS ORDERED: Albuterol 8 GM Inhaler INH PRN (13:17)
--- NOTE | 2016-10-20 13:25 | PCM.HP ---
H&P History of Present Illness - General Date of Service: 10/20/16 Admit Problem/Dx: Weakness; Dehydration Source of Information: Patient, Family, RN, RN notes reviewed History Limitations: Reports: No limitations - History of Present Illness Initial Comments - Free Text/Narative: Patient presented to the ED at [facility] today with worsening weakness, and probable dehydration. According to family the patient has not ate or drank anything for the past 5 days. Patient was recently discharged from this facility 5 days ago. She had been admitted for Influenza A, COPD exacerbation. Patient states her SOB has also been worsening over the past few days. Patient states her cough has become more productive. No chest pain. No focal neurological deficits. Patient states she feels very weak. Onset of Symptoms: Reports: gradual - Related Data Allergies/Adverse Reactions: Allergies Allergy/AdvReac Type Severity Reaction Status Date / Time hydrocodone AdvReac Dizziness Verified 10/13/16 17:59 meperidine HCl [From Demerol] AdvReac Vomiting Verified 10/13/16 17:59 tramadol AdvReac Nausea Verified 10/13/16 17:59 Home Medications: Home Meds Albuterol [Proair HFA] 1 puff INH Q4HR PRN 12/24/14 [History] Aspirin [Ecotrin] 162.5 mg PO DAILY 12/24/14 [History] Cimetidine 0 mg PO BID 12/24/14 [History] Denosumab [Prolia] 60 mg SUBCUT ASDIRECTED 12/24/14 [History] Docusate Sodium [Colace] 100 mg PO DAILY 12/24/14 [History] Hydroxychloroquine Sulfate [Plaquenil] 200 mg PO BID 12/24/14 [History] Simvastatin [Zocor] 10 mg PO BEDTIME tablet 12/24/14 [Rx] predniSONE [Prednisone] 1 tab PO DAILY 12/24/14 [History] sulfaSALAzine 1,500 mg PO BID tablet 12/24/14 [Rx] Calcium Carbonate [Calcium] 1,000 mg PO BID 10/29/15 [History] Cholecalciferol (Vitamin D3) [Vitamin D3] 1,000 unit PO DAILY 10/29/15 [History] Gabapentin [Neurontin] 300 mg PO TID 10/29/15 [History] Leflunomide [Arava] 10 mg PO DAILY 06/11/16 [History] Diltiazem [Cardizem] 30 mg PO BID 10/13/16 [History] Iodine [Kelp] 0 mcg PO ASDIRECTED 10/13/16 [History] Tiotropium [Spiriva HandiHaler] 18 mcg INH DAILY 10/13/16 [History] Oseltamivir Phosphate [IJD: Tamiflu] 75 mg PO BID #5 capsule 10/15/16 [Rx] predniSONE [Prednisone] 20 mg PO DAILY #5 tablet 10/15/16 [Rx] Past Medical History HEENT History: Reports: Epistaxis Cardiovascular History: Reports: Afib (remote history of while ill), Heart murmur, High cholesterol, Other (see below) (mitral regurgitation) Other Cardiovascular History: proxysmal ventricular tachycardia, mitral stenosis , mitral insufficiency, chronic chest pain Respiratory History: Reports: COPD, Other (see below) Other Respiratory History: mycobacterium avium-intracellulare complex Gastrointestinal History: Reports: GERD, Hemorrhoids, Pancreatitis Genitourinary History: Reports: 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: Musculoskeletal History: Reports: Osteoporosis, RA, Other (see below) Other Musculoskeletal History: chronic pain, sciatic pain, left shoulder pain, radicular leg pain Neurological History: Reports: CVA Psychiatric History: Reports: None Endocrine/Metabolic History: Reports: None Hematologic History: Reports: Anemia Immunologic History: Reports: Immunosuppression Oncologic (Cancer) History: Reports: None Dermatologic History: Reports: None - Infectious Disease History Infectious Disease History: Reports: Influenza - Past Surgical History HEENT Surgical History: Reports: Cataract surgery, Tonsillectomy, Other (see below) Other HEENT Surgeries/Procedures: Vocal cord surgery, nasal sinus endoscopy Respiratory Surgical History: Reports: Lung Resection, Other (see below) Other Respiratory Surgeries/Procedures: Left upper lung GI Surgical History: Reports: Cholecystectomy Female Surgical History: Reports: Tubal ligation Dermatological Surgical History: Reports: None Social & Family History - Family History Family Medical History: Noncontributory Respiratory: Reports: Asthma, COPD Endocrine/Metabolic: Reports: Diabetes, type II Oncologic: Reports: Pancreatic - Tobacco Use Smoking Status *Q: Former Smoker Years of Tobacco use: 40 Packs/Tins Daily: 1 Used Tobacco, but Quit: Yes Month Tobacco Last Used: 08/25/2007 Second Hand Smoke Exposure: No - Caffeine Use Caffeine Use: Reports: Coffee - Alcohol Use Days Per Week of Alcohol Use: 0 - Recreational Drug Use Recreational Drug Use: No - Living Situation & Occupation Living situation: Reports: , with significant other H&P Review of Systems - Review of Systems: Review Of Systems: See Below General: Reports: fever, weakness, fatigue, decreased appetite. Denies: chills HEENT: Reports: no symptoms Pulmonary: Reports: shortness of breath, wheezing, cough, sputum. Denies: hemoptysis Cardiovascular: Denies: chest pain, palpitations, dyspnea on exertion Gastrointestinal: Denies: Abdominal pain, Diarrhea, Nausea, Vomiting Skin: Reports: dryness Neurological: Reports: no symptoms. Denies: dizziness, headache, numbness, paresthesia, tingling Exam - Exam Exam: See Below - Vital Signs Vital Signs: Last Vital Signs Temp 39.2 C H 10/20/16 13:08 Pulse 84 10/20/16 13:08 Resp 16 10/20/16 13:08 BP 123/76 10/20/16 13:08 Pulse Ox 100 10/20/16 13:08 Weight: 38.374 kg - Exam Quality Assessment: supplemental oxygen General: alert, oriented HEENT: Pupils equal, Pupils reactive, TMs clear Neck: supple Lungs: Decreased breath sounds, Rhonchi, Wheezing Cardiovascular: regular rate, regular rhythm Abdomen: soft, hypoactive bowel sounds. No: tenderness Peripheral Pulses: 2+: radial (L), radial (R) Skin: warm, dry, intact Neuro Extensive - Mental Status: alert, oriented x3 - Patient Data Result Diagrams: 10/20/16 11:48 10/20/16 11:48 *Q Meaningful Use (ADM) - VTE *Q VTE Criteria *Q: - Stroke *Q Stroke Criteria *Q: - AMI *Q AMI Criteria *Q: - Problem List (1) Weakness SNOMED Code(s): 25626568 ICD Code: R53.1 - WEAKNESS Status: Acute Priority: Medium Current Visit : Yes (2) Dehydration SNOMED Code(s): 53639961 ICD Code: E86.0 - DEHYDRATION Status: Acute Current Visit: Yes Problem List Initiated/Reviewed/Updated: Yes Orders Last 24hrs: Active Orders 24 hr Category Date Time Status Patient Status [ADT] Routine ADT 10/20/16 13:12 Ordered Ambulate [RC] ASDIRECTED Care 10/20/16 13:12 Ordered Ambulate [RC] PER UNIT ROUTINE Care 10/20/16 13:14 Ordered Height and Weight [RC] UPON Care 10/20/16 13:12 Ordered Intake and Output [RC] QSHIFT Care 10/20/16 13:13 Ordered May Shower [RC] ASDIRECTED Care 10/20/16 13:12 Ordered Oxygen Therapy [RC] PRN Care 10/20/16 13:12 Ordered VTE/DVT Education [RC] PER UNIT ROUTINE Care 10/20/16 13:12 Ordered Vital Signs [RC] Q8HR Care 10/20/16 13:12 Ordered Consult to Professor Of Counseling [CONS] Routine Cons 10/20/16 13:12 Ordered OT Evaluation and Treatment [CONS] Routine Cons 10/20/16 13:12 Ordered PT Evaluation and Treatment [CONS] Routine Cons 10/20/16 13:12 Ordered 2 Gram Sodium Diet [DIET] Diet 10/20/16 Breakfast Ordered BASIC METABOLIC PANEL,BMP [CHEM] Routine Lab 10/21/16 05:11 Ordered CBC WITH AUTO DIFF [HEME] Routine Lab 10/21/16 05:11 Ordered UA W/MICROSCOPIC [URIN] Stat Lab 10/20/16 13:12 Uncollected Albuterol [Proair HFA] Med 10/20/16 13:17 Ordered 1 puff INH Q4HR PRN Aspirin [Ecotrin] Med 10/21/16 08:00 Ordered 162.5 mg PO DAILY Diltiazem [Cardizem] Med 10/20/16 20:00 Ordered 30 mg PO BID Docusate Sodium [Colace] Med 10/21/16 08:00 Ordered 100 mg PO DAILY Gabapentin [Neurontin] Med 10/20/16 20:00 Ordered 300 mg PO TID Hydroxychloroquine Sulfate [Plaquenil] Med 10/20/16 20:00 Ordered 200 mg PO BID Leflunomide [Arava] Med 10/21/16 08:00 Ordered 10 mg PO DAILY Simvastatin [Zocor] Med 10/20/16 20:00 Ordered 10 mg PO BEDTIME Sodium Chloride 0.9% @ 50 MLS/HR(1000ml) Med 10/20/16 13:30 Ordered Sodium Chloride 0.9% [Normal Saline] 1,000 ml IV ASDIRECTED Tiotropium [Spiriva HandiHaler] Med 10/21/16 08:00 Ordered 18 mcg INH DAILY predniSONE [Prednisone] Med 10/21/16 08:00 Ordered 1 tab PO DAILY sulfaSALAzine [sulfaSALAzine] Med 10/20/16 20:00 Ordered 1,500 mg PO BID Resuscitation Status Routine Resus Stat 10/20/16 13:12 Ordered Medication Orders Sodium Chloride (Normal Saline) 1,000 mls @ 50 mls/hr IV ASDIRECTED YOUSUF Sodium Chloride (Saline Flush) 10 ml FLUSH ASDIRECTED PRN PRN Reason: Keep Vein Open Assessment/Plan Comment:: 1. Admit observation 2. IVF hydration 3. Continue home meds 4. PT/OT consults 5. SSoc for discharge planning; I would suspect patient would need NH placement soon 6. Anticipate stay <48 hours
[2016-10-20] MEDS ORDERED: Sodium Chloride 0.9% 1,000 ML IV SCH (13:30)
[2016-10-20] MEDS: Albuterol/Ipratropium 3.0-0.5 MG/3 ML Neb Soln NEB SCH ×4 (14:56→22:35)
[2016-10-20] MEDS ORDERED: Acetaminophen 325 MG Tab PO PRN (17:10)
[2016-10-20] MEDS ORDERED: Hydroxychloroquine 200 MG Tab PO SCH (18:00)
[2016-10-20] MEDS ORDERED: sulfaSALAzine 500 MG Tab.EC PO SCH (18:00)
[2016-10-20] MEDS ORDERED: Potassium Chloride 20 MEQ Tab.ER PO ONE (18:27)
[2016-10-20] MEDS ORDERED: Ondansetron 4 MG/2 ML SDV IVPUSH PRN (20:01)
[2016-10-20] MEDS: Gabapentin 300 MG Cap PO SCH (20:27)
[2016-10-20] MEDS: Diltiazem IR 30 MG Tab PO SCH (20:27)
[2016-10-20] MEDS: Simvastatin 10 MG Tab PO SCH (20:27)
[2016-10-20] MEDS: D5 1/2 NS w/ 20 mEq/L KCl 1,000 ML IV SCH (21:01)
[2016-10-20] MEDS ORDERED: Levofloxacin/Dextrose 5%-Water 500 MG in Premix Bag 1 BAG IV ONE (22:12)
[2016-10-20] MEDS: Megestrol 40 MG Tab PO SCH (22:26)
[2016-10-20] MEDS ORDERED: methylPREDNISolone Sodium Succinate 40 MG/1 ML SDV IVPUSH SCH (22:30)
[2016-10-20] MEDS ORDERED: Levofloxacin/Dextrose 5%-Water 100 ML IV ONE (22:50)
[2016-10-21] MEDS: Pantoprazole 40 MG Vial IVPUSH SCH ×3 (00:04→23:28)
--- NOTE | 2016-10-21 00:27 | PN ---
Progress Note for MIRIAM PALACIOS Date: 10/20/2016 Room #: VM.214 SUBJECTIVE: Miriam was admitted on observation status this morning by Mal Ybarra, with weakness and failure to thrive. The patient had been admitted to our facility from 10/13/2016 until 10/15/2016 with the influenza A and COPD exacerbation. At that time, she was also experiencing nausea and vomiting secondary to viral gastroenteritis. She was admitted by Annabel Seals at that time. It says on the admission H and P that the stool was sent for C. diff, but I am unable to find the results of this. The patient did finish a course of Tamiflu for the influenza A. She did have acute kidney injury secondary to dehydration which improved with IV fluids. The patient presented to the emergency room this morning and was seen by Mal Ybarra, with increased weakness, worsening shortness of breath, and dehydration. She states that she has not felt any better since her discharge. She has not been eating according to her family. The patient is a code level 2 with no intubation and no resuscitation. The patient was not found to have an acute infiltrate on her chest x-ray. Her urine sample was not obtained until this evening and she was found to have a small leukocyte esterase in her urine. It was negative for nitrites. Her specific gravity was markedly elevated at 1.030. Her microscopic urine examination will be done in the morning. PHYSICAL EXAMINATION: General: This is a 71-year-old female patient, who is in mild amount of distress. Vital Signs: Heart rate is 84 and temperature is 38.4. Skin: Warm, pale, and dry. HEENT. Head is normocephalic and atraumatic. Mouth, oral mucosa is extremely dry. No erythema or exudate noted in the hypopharynx. Neck: Supple without masses. There is no lymphadenopathy. Lungs: Diminished with wheezing and pleural rubs noted bilaterally. Heart: Regular rate and rhythm. Abdomen: Soft and nontender. There is no hepatosplenomegaly noted. There is no masses noted. Extremities: No edema. LABORATORY DATA: WBC is 9.8, hemoglobin is 11.4, platelets are 295. ABGs, pH was 7.44, pCO2 was 31, PO2 was 89, bicarb was 22, CO2 was 23, O2 saturation 97% on 0.28 FiO2. Urinalysis again did reveal small leukocyte esterase. ASSESSMENT: 1. Urinary tract infection. 2. Recent treatment for Influenza A. 3. Chronic obstructive pulmonary disease exacerbation. 4. Failure to thrive. 5. Hypokalemia. PLAN: The patient was given 40 mEq of potassium chloride p.o. by ANA Salazar. She had been started on plain normal saline at 40 ml/hr. This was changed to D5 half-normal saline with 20 of KCl at 125 an hour. We will slowly rehydrate. Regarding her urinary tract infection, I did start her on Levaquin 500 mg x1. Her renal adjustment would be 250 mg q.24 hours after that. She is at risk for stress ulcer, so she was started on Protonix 40 mg IV q.12 hours. Solu Medrol 40mg BID, as she continues to experience wheezing. Start sequential compression devices for DVT prophylaxis. Her Plaquenil and lefunomide were held. She was experiencing some nausea, so she was started on ondansetron 4 mg q.8 hours for nausea. She was started on Megace to stimulate her appetite. Again, the patient was made an observation patient on admit, but she will likely be made acute and care will be transferred to her primary physician, Dr. Annabel Seals. In the morning will repeat comprehensive metabolic panel, CBC, magnesium and also will do a repeat chest x-ray. Urine will be sent for culture. OLYAK: 10/20/2016 23:29:44 MODL: 10/21/2016 00:15:41 /[id number] MTDD
[2016-10-21] MEDS: Albuterol/Ipratropium 3.0-0.5 MG/3 ML Neb Soln NEB SCH ×2 (04:21→07:09)
[2016-10-21] MEDS: D5 1/2 NS w/ 20 mEq/L KCl 1,000 ML IV SCH (05:29)
[2016-10-21] MEDS: Docusate Sodium 100 MG Cap PO SCH (08:00)
[2016-10-21] MEDS: Megestrol 40 MG Tab PO SCH ×2 (08:00→20:08)
[2016-10-21] MEDS: Gabapentin 300 MG Cap PO SCH ×3 (08:00→20:08)
[2016-10-21] MEDS ORDERED: predniSONE 5 MG Tab PO SCH (08:00)
[2016-10-21] MEDS: Aspirin 81 MG Tab.EC PO SCH (08:00)
[2016-10-21] MEDS ORDERED: Leflunomide 20 MG Tab PO SCH (08:00)
[2016-10-21] MEDS: Diltiazem IR 30 MG Tab PO SCH ×2 (08:00→20:08)
[2016-10-21] MEDS: Tiotropium Inhaler 18 MCG Inhalation Powder Cap Kit of 5 INH SCH (08:02)
[2016-10-21] MEDS ORDERED: Albuterol/Ipratropium 3.0-0.5 MG/3 ML Neb Soln NEB PRN (08:48)
[2016-10-21] MEDS ORDERED: methylPREDNISolone Sodium Succinate 40 MG/1 ML SDV IVPUSH SCH (09:00)
[2016-10-21] MEDS ORDERED: Levofloxacin/Dextrose 5%-Water 250 MG in Premix Bag 1 BAG IV SCH (09:00)
[2016-10-21] MEDS ORDERED: Albuterol 0.083% 2.5 MG/3 ML Neb Soln NEB PRN (09:16)
[2016-10-21] MEDS: Sodium Chloride 0.9% 1,000 ML IV SCH (10:04)
--- NOTE | 2016-10-21 10:15 | PN ---
Progress Note for MIRIAM PALACIOS Date: 10/21/2016 Room #: VM.214 SUBJECTIVE: Hospital day #2 on a 71-year-old admitted yesterday for observation with weakness, shortness of breath, and nausea. The patient had just been admitted on 10/13 and discharged on 10/15 for viral gastroenteritis and influenza A. She had 2-1/2 days left of Tamiflu. She tells me she took her last dose on Friday. She had very poor appetite. They attribute that to the Tamiflu. She was getting weaker. When she came in, she had been afebrile, but she was having chills. She had been having some loose black stools like 2 per day. She did have a fever documented at 101.4 on ER admission yesterday. Her weight actually went down about 5 pounds since her discharge. She has no abdominal pain, no dysuria. Her back pain was the same as her previous back pain. She had been coughing, short of breath, and wheezing. She does have underlying COPD. She was sent home on 5 more days of prednisone. Her lab work did show a normal white count. She was severely dehydrated. Her UA was positive for infection with 10 to 20 wbc's. Her specific gravity after fluids was greater than 1.03. Her potassium was low, and that has been replaced. Her x-ray was showing a right lower lobe pneumonia. They do note, her and her family, that she has had some trouble swallowing. OBJECTIVE: Vital Signs: Temperature is 97.3, pulse 85, blood pressure 108/59, respiratory rate 20, O2 of 98% on 2 L. Her T-max was 102.6 at 1 p.m. yesterday. General: She is in no acute distress. Her general appearance is pale. Heart: Regular rate and rhythm with murmur. Lungs: Sounds show clear to auscultation without wheezing in the upper lungs, but the bases, both have rhonchi and crackles noted in the right base. Abdomen: Positive bowel sounds. Soft and nontender. Extremities: Warm and dry. No edema, no rashes. Mental Status: She is alert and oriented x3. LABORATORY DATA: Lab work reviewed this morning. Hemoglobin did drop from 11.4 to 10.0, probably some hemodilution. She did report 1 darker stool yesterday. No Hemoccult has been done. White count normal at 9, platelets 249. Sodium 134, potassium 4, chloride 100, bicarb 24, BUN 23, creatinine 1.1. Glucose 339, probably due to steroids. Lactic acid normal yesterday. Calcium mildly low at 7.6, no albumin on record today. ABGs yesterday showed a CO2 of 31, PO2 of 89. ASSESSMENT: 1. Weakness, dehydration, and nausea, probably related to recent Tamiflu and influenza, still with fevers. 2. Urinary tract infection. We will get a urine culture. It should be covered by the Levaquin. 3. Pneumonia, probably healthcare associated given recent hospital stay and underlying influenza. MRSA coverage would be important. I am going to add IV Vanco. She is already scheduled for repeat chest x-ray. 4. Chronic obstructive pulmonary disease with exacerbation due to pneumonia. 5. Mild hyponatremia. 6. Hypokalemia replaced. 7. Underlying rheumatoid arthritis with immunosuppression. We will hold her methotrexate, Plaquenil, and sulfasalazine. 8. Trouble swallowing. We will get a Speech evaluation. PLAN: At this point, the patient will be upgraded to acute cares. I will continue IV Levaquin. I will switch her fluids from D5 over to normal saline 75 mL/h. I will repeat Accu-Chek today. We will put her Solu-Medrol as 40 once daily. We will start vanco. We will get her PT eval and her up and working with therapies, and we will see how she does over the next 24-48 hours, but I anticipate she will need at least another 2 midnights potentially swing bed. She was inadvertently put in under comfort care status. I did change her to a code-1 after discussion with her. For DVT prophylaxis, she is on SCDs, as we are ruling out GI bleeding. She is on Protonix for stress ulcer prophylaxis, and Hemoccult on the stool is pending. JENIFFERA: 10/21/2016 09:01:32 MODL: 10/21/2016 09:30:49 /[id number]
[2016-10-21] MEDS: Calcium Carbonate 750 MG Tab.Chew PO SCH ×2 (11:29→20:10)
[2016-10-21] MEDS ORDERED: Insulin Aspart 100 Units/ML 3 ML Pen SUBCUT ONE (16:56)
[2016-10-21] MEDS ORDERED: Magnesium Sulfate/Water 2 GM in Premix Bag 1 BAG IV ONE (16:56)
--- NOTE | 2016-10-21 17:02 | PCM.SN ---
- Free Text/Narrative Note: CXR today official prelim read did not list infiltrate but I feel she has a questionable infiltrate in the LLL. Hgb dropped to 8.9 but she is on fluid, no stools today to get a hemoccult, IV protonix was continued. MG low so will order 2 grams IV and repeat labs in the AM. Per nursing she is doing better did eat some cake and her blood sugar is still up over 300 so meal insulin ordered for supper 3 units and steroids were decreased to once daily this morning already. Will continue to monitor. PT feels she can return home in a couple days and will not need swing bed.
[2016-10-21] MEDS: Simvastatin 10 MG Tab PO SCH (20:08)
[2016-10-22] MEDS: Sodium Chloride 0.9% 1,000 ML IV SCH (01:27)
[2016-10-22] MEDS: Megestrol 40 MG Tab PO SCH ×2 (07:26→20:14)
[2016-10-22] MEDS: Docusate Sodium 100 MG Cap PO SCH (07:26)
[2016-10-22] MEDS: Diltiazem IR 30 MG Tab PO SCH ×2 (07:26→20:14)
[2016-10-22] MEDS: Gabapentin 300 MG Cap PO SCH ×3 (07:26→20:14)
[2016-10-22] MEDS: Aspirin 81 MG Tab.EC PO SCH (07:26)
[2016-10-22] MEDS: Tiotropium Inhaler 18 MCG Inhalation Powder Cap Kit of 5 INH SCH (07:27)
[2016-10-22] MEDS: Calcium Carbonate 750 MG Tab.Chew PO SCH (07:27)
[2016-10-22 07:45] LABS: CHLORIDE,CL 106 mmol/L (98-107); SODIUM,NA 141 mmol/L (136-145)
[2016-10-22] MEDS: Levofloxacin 250 MG Tab PO SCH (09:49)
[2016-10-22] MEDS: predniSONE 20 MG Tab PO SCH (09:49)
[2016-10-22] MEDS: Omeprazole 20 MG Cap.CR PO SCH ×2 (09:50→17:16)
[2016-10-22] MEDS: Calcium Carbonate/Vitamin D3 1250 MG-200 Unit Tab PO SCH ×2 (09:50→20:15)
[2016-10-22] MEDS: Simvastatin 10 MG Tab PO SCH (20:15)
[2016-10-23] MEDS: Omeprazole 20 MG Cap.CR PO SCH (06:13)
[2016-10-23 06:17] VITALS: BP 146/80
[2016-10-23 07:21] LABS: CHLORIDE,CL 108 mmol/L (98-107); SODIUM,NA 144 mmol/L (136-145)
[2016-10-23] MEDS: Diltiazem IR 30 MG Tab PO SCH (07:53)
[2016-10-23] MEDS: Levofloxacin 250 MG Tab PO SCH (07:53)
[2016-10-23] MEDS: Aspirin 81 MG Tab.EC PO SCH (07:53)
[2016-10-23] MEDS: Calcium Carbonate/Vitamin D3 1250 MG-200 Unit Tab PO SCH (07:53)
[2016-10-23] MEDS: Gabapentin 300 MG Cap PO SCH (07:54)
[2016-10-23] MEDS: Docusate Sodium 100 MG Cap PO SCH (07:55)
[2016-10-23] MEDS: Tiotropium Inhaler 18 MCG Inhalation Powder Cap Kit of 5 INH SCH (07:55)
[2016-10-23] MEDS: Megestrol 40 MG Tab PO SCH (07:55)
[2016-10-23] MEDS: predniSONE 20 MG Tab PO SCH (07:55)
--- NOTE | 2016-10-23 09:28 | PN ---
Progress Note for MIRIAM PALACIOS Date: 10/22/2016 Room #: VM.214 SUBJECTIVE: A 71-year-old seen for hospital day #3 for fevers, weakness, dehydration. She has not had any diarrhea since admission. She has not had a stool. Her hemoglobin is stable. Her fevers have improved. She has been afebrile over 24 hours. She is not having any significant cough or shortness of breath. She is getting stronger. She is up working with therapies. Her urine culture is not back yet. She has been on oral Levaquin now and IV vancomycin. She has had repeat x-rays, which were not showing any significant infiltrates. OBJECTIVE: Vital Signs: Yesterday her temperature is 97.3, pulse 80, blood pressure 114/65, respiratory rate 16, and O2 of 99% on 1-1/2 L and 95% on room air. General: She is in no acute distress. Heart: Regular rate and rhythm with murmur noted. Lungs: Sounds are clear to auscultation bilaterally without crackles or wheezes. Abdomen: Positive bowel sounds. Soft and nontender. Extremities: Warm and dry. No edema. Mental Status: Alert and orientated x3. . ASSESSMENT: 1. Weakness, dehydration and nausea, probably related to the recent Tamiflu and influenza. Fevers have resolved. 2. Questionable urinary tract infection. Awaiting cultures. She will continue oral Levaquin. 3. Concern for post-infectious pneumonia. Sputum cultures were attempted and received, but it was not an adequate sample. I do not feel any further collection is warranted, especially now that she is on antibiotics. We will continue IV vancomycin and see how she does, but hopefully she will be able to be discharged home without it. Blood cultures were not done on admission. I feel it is too late to do them now. 4. Chronic obstructive pulmonary disease with exacerbation. She is on Solu- Medrol. We switched her over to prednisone today. 5. Hypokalemia and hypomagnesemia, replaced. 6. Underlying RA with immunosuppression. Arava, Plaquenil, and sulfasalazine are on hold. 7. Trouble swallowing. She is being followed by Speech. PLAN: The plan at this point, the patient will stop IV fluids. We will still attempt to obtain a stool test for blood. We will switch her IV Protonix over to oral. We will stop her IV fluids and see how she does and keep her up working with therapy. Anticipate she will be discharged home in the next 24 hours. JENIFFERA: 10/23/2016 08:44:45 MODL: 10/23/2016 09:09:41 /[id number]
--- NOTE | 2016-10-24 06:24 | DISCH ---
REASON FOR ADMISSION: 1. Weakness, dehydration, and fevers likely cause was recent influenza and Tamiflu use. 2. Questionable UTI however final culture showed mixed lisa. She completed 4 days of Levaquin. 3. Probable pneumonia. She was given some IV Vanco as she had recently had influenza. We will follow up chest x-rays. We are okay, so Vanco was stopped on discharge. Sputum cultures were obtained, but were not in adequate sample. 4. COPD with exacerbation. She was placed on Solu-Medrol and weaned down to oral steroids. On discharge, she was doing well. She was having some minor coughing, but breathing well off oxygen. 5. Mild hyponatremia, hypokalemia, hypomagnesemia, all improved on discharge. 6. Underlying rheumatoid arthritis with immunosuppression. 7. Chronic anemia. She had been worked up outpatient had some labs and there was some concern about monoclonal gammopathy, but this was all coming back okay. No active issues. Hemoccult was negative. No active bleeding. She did receive IV Protonix during her stay. Bolus dosing. 8. Dysphagia and trouble swallowing. She has a video swallow scheduled outpatient. 9. Essential hypertension. She was continued on Cardizem she does have a remote history of atrial fibrillation, but nothing happened on this admission. Her heart rates were regular. 10.Hyperglycemia without diabetes due to steroids improved by discharge. REASON FOR ADMISSION: On the date of admission, this 71-year-old, who had been admitted in the previous week for influenza sent home on Tamiflu came back with shortness of breath. She had fever up to 102 and she was just feeling weak and very poor oral intake. She had no dysuria, but UA was positive for infection she was started on Levaquin. X-ray was done, which initially did question some pneumonia, but on over-read by the radiologist was read felt to be negative she was doing some coughing often and on and received scheduled nebulizers, but she actually asked us not do the nebs and just do her regular Spiriva, which she did well with and was breathing better and discharged. She was put on some Megace to help stimulate her appetite. It was discussed with her that this would not be needed for her at home. She was initially treated with IV Levaquin later Vanco was added and Levaquin was switched over to oral. She tolerated these antibiotics, was afebrile 24 hours after her admission for the rest of her stay. Initially, she was admitted observation, but on the second hospital day, due to ongoing weakness and the fact that she was likely going to need another 48 hours. I did upgrade her to acute care. She was receiving acute treatments like IV antibiotics, IV magnesium replacement. Electrolytes were monitored and looked appropriate. Creatinine was 0.7 on discharge. White count which was normal on admission did go up to 13.1, probably steroid related was done 11.2 on discharge. Hemoglobin was stable at 9.1 on discharge and platelets were 305. She did not received Lovenox for DVT prophylaxis due to concern for possible GI bleeding. She had Jv stockings ordered. Otherwise, she did receive 1 dose of 3 units of insulin for a blood sugar of 380. This was after the IV steroids. Those were tapered down and switched over to oral prednisone. Her rheumatoid arthritis medications were held. She had went home previously on 20 mg daily for 5 days and then had taken it just to the day before she came in however she was feeling weak the whole time. We discussed with her increasing her 2.5 daily a prednisone to 10 mg on discharge especially with her cough and COPD until her followup visit in the next 6 to 7 days decide on further dosing at that visit. PHYSICAL EXAMINATION: Vital Signs: Discharging vitals were temp 97.8, pulse 80, blood pressure 146/80, respiratory rate 20, O2 of 96% on room air. General: She is in no acute distress. Heart: Regular rate and rhythm. Lungs: Sounds are clear to auscultation with occasional expiratory wheezing. Abdomen: Has positive bowel sounds. Soft and nontender. Extremities: Warm and dry. No edema. Mental status: She is alert and orientated x3. DISCHARGE PLAN/INSTRUCTIONS: She will have a speech swallow evaluation on FridayOctober 25. She did mention some trouble swallowing so she was evaluated by speech. They did recommend a regular diet. Until then, she will be off Arava and sulfasalazine until her followup visit. No antibiotics on discharge. She completed 4 days of Levaquin during her stay. Prednisone will be 10 mg daily until her followup. Greater than 30 minutes spent on discharge process. MKA: 10/23/2016 08:51:22 MODL: 10/24/2016 06:18:11 /[id number]
== END 2016-10-23 10:25 | disposition home or self-care (01) | DRG 947 ==
LOC: VM.ED 10:56 → VM.MS 12:36 → INTOOBSV 12:48 → OBSVTOIN 12:48 → UNDOADMOB 12:48 → INTOOBSV 10-21 08:50 → OBSVTOIN 10-21 08:50 → UNDODISIN 10-23 10:25
PROVIDERS: ADMIT Nurse Practitioner Family; ATTEND Nurse Practitioner Family
DX: R53.1 Weakness (principal); J18.9 Pneumonia, unspecified organism; J44.9 Chronic obstructive pulmonary disease, unspecified; E87.1 Hypo-osmolality and hyponatremia; N39.0 Urinary tract infection, site not specified; J44.0 Chronic obstructive pulmonary disease with (acute) lower respiratory infection; E87.6 Hypokalemia; E86.0 Dehydration; R50.9 Fever, unspecified; I48.91 Unspecified atrial fibrillation; E78.00 Pure hypercholesterolemia, unspecified; Z87.891 Personal history of nicotine dependence; I34.0 Nonrheumatic mitral (valve) insufficiency; J45.909 Unspecified asthma, uncomplicated; R13.10 Dysphagia, unspecified; K21.9 Gastro-esophageal reflux disease without esophagitis; M06.9 Rheumatoid arthritis, unspecified; M81.0 Age-related osteoporosis without current pathological fracture; G89.29 Other chronic pain; Z86.73 Personal history of transient ischemic attack (TIA), and cerebral infarction without residual deficits; D64.9 Anemia, unspecified; Z79.82 Long term (current) use of aspirin; Z79.899 Other long term (current) drug therapy; Z88.6 Allergy status to analgesic agent; R62.7 Adult failure to thrive; R73.9 Hyperglycemia, unspecified
CPT/HCPCS: 36415 ×2; 36600; 71020; 80048 ×2; 81001; 82803; 83605; 83735; 85025 ×2; 86140; 87086; 94640; 94760; 96361 ×2; 96365; 96375 ×2; 99285 ×2; A9270 ×10; C9113; G0378; J1956; J2405; J2920; J3480 ×2; J7030; 80053; 82274; 82962; 85014; 85018; 92526-GN; 92610-GN; 97110-GP; 97116-GP; 97161-GP; 97165-GO; 97530-GP; 97535-GO; J1815-GY; J3370; J3475; J7050

== ENCOUNTER 2016-11-14 18:39 | Observation (INO) | payer MEDICARE ==
[2016-11-14] MEDS ORDERED: Ondansetron 8 MG in Sodium Chloride 0.9% 100 ML IV ONE (19:12)
--- NOTE | 2016-11-14 19:32 | EDM.PDOC ---
ED HISTORY OF PRESENT ILLNESS - General Chief Complaint: Fever Stated Complaint: Patient states she has been having increased shortness of breath cough over the last 5 days some subjective fever and she'll has had nausea and vomiting on-and-off x2 days and diarrhea x1 this morning no complaints of pain anywhere Time Seen by Provider: 11/14/16 19:00 Source of Information: Reports: Patient, Family History Limitations: Reports: No limitations - History of Present Illness Timing/Duration: Reports: Week(s): Severity: mild Improves with: Reports: Rest Context, General: Reports: Activity Associated Symptoms (General): Reports: cough, fever/chills, shortness of breath. Denies: confusion, chest pain, headaches, loss of appetite, weakness - Related Data Allergies/ADRs: Allergies Allergy/AdvReac Type Severity Reaction Status Date / Time hydrocodone AdvReac Dizziness Verified 11/14/16 18:57 meperidine HCl [From Demerol] AdvReac Vomiting Verified 11/14/16 18:57 tramadol AdvReac Nausea Verified 11/14/16 18:57 Home Meds: Home Meds Albuterol [Proair HFA] 1 puff INH Q4HR PRN 12/24/14 [History] Aspirin [Ecotrin] 162.5 mg PO DAILY 12/24/14 [History] Cimetidine 200 mg PO BID 12/24/14 [History] Denosumab [Prolia] 60 mg SUBCUT ASDIRECTED 12/24/14 [History] Docusate Sodium [Colace] 100 mg PO DAILY 12/24/14 [History] Hydroxychloroquine Sulfate [Plaquenil] 200 mg PO BID 12/24/14 [History] Calcium Carbonate [Calcium] 1,000 mg PO BID 10/29/15 [History] Cholecalciferol (Vitamin D3) [Vitamin D3] 1,000 unit PO DAILY 10/29/15 [History] Gabapentin [Neurontin] 300 mg PO TID 10/29/15 [History] Diltiazem [Cardizem] 30 mg PO BID 10/13/16 [History] Iodine [Kelp] 150 mcg PO DAILY 10/13/16 [History] Tiotropium [Spiriva HandiHaler] 18 mcg INH DAILY 10/13/16 [History] Leflunomide 10 mg PO DAILY 10/21/16 [History] Simvastatin 10 mg PO DAILY 10/21/16 [History] sulfaSALAzine [Azulfidine] 1,500 mg PO BIDMEALS 10/21/16 [History] predniSONE [Prednisone] 10 mg PO DAILY #40 10/23/16 [Rx] Past Medical History HEENT History: Reports: Epistaxis Cardiovascular History: Reports: Afib, Heart murmur, High cholesterol, Other ( see below) Other Cardiovascular History: proxysmal ventricular tachycardia, mitral stenosis , mitral insufficiency, chronic chest pain Respiratory History: Reports: COPD, Other (see below) Other Respiratory History: mycobacterium avium-intracellulare complex Gastrointestinal History: Reports: GERD, Hemorrhoids, Pancreatitis Genitourinary History: Reports: None [employer] History: Reports: Musculoskeletal History: Reports: Osteoporosis, RA, Other (see below) Other Musculoskeletal History: chronic pain, sciatic pain, left shoulder pain, radicular leg pain Neurological History: Reports: CVA Psychiatric History: Reports: None Endocrine/Metabolic History: Reports: None Hematologic History: Reports: Anemia Immunologic History: Reports: Immunosuppression Oncologic (Cancer) History: Reports: None Dermatologic History: Reports: None - Infectious Disease History Infectious Disease History: Reports: Influenza - Past Surgical History HEENT Surgical History: Reports: Cataract surgery, Tonsillectomy, Other (see below) Other HEENT Surgeries/Procedures: Vocal cord surgery, nasal sinus endoscopy Respiratory Surgical History: Reports: Lung Resection, Other (see below) Other Respiratory Surgeries/Procedures: Left upper lung GI Surgical History: Reports: Cholecystectomy Female Surgical History: Reports: Tubal ligation Dermatological Surgical History: Reports: None Social & Family History - Family History Family Medical History: Noncontributory Respiratory: Reports: Asthma, COPD Endocrine/Metabolic: Reports: Diabetes, type II Oncologic: Reports: Pancreatic - Tobacco Use Smoking Status *Q: Former Smoker Years of Tobacco use: 40 Packs/Tins Daily: 1 Used Tobacco, but Quit: Yes Month Tobacco Last Used: 08/25/2007 Second Hand Smoke Exposure: No - Caffeine Use Caffeine Use: Reports: Coffee - Alcohol Use Days Per Week of Alcohol Use: 0 - Recreational Drug Use Recreational Drug Use: No - Living Situation & Occupation Living situation: Reports: , with significant other ED ROS GENERAL - Review of Systems Review Of Systems: See Below Constitutional: Reports: fever, chills. Denies: malaise, weakness HEENT: Reports: No symptoms Respiratory: Reports: Shortness of Breath, Wheezing, Cough, Sputum Cardiovascular: Denies: Chest pain, Dyspnea on exertion, Edema, PND Endocrine: Reports: no symptoms GI/Abdominal: Reports: No symptoms, Diarrhea, Nausea, Vomiting. Denies: Abdominal pain : Reports: no symptoms Musculoskeletal: Reports: no symptoms Skin: Reports: no symptoms Neurological: Reports: No Symptoms Psychiatric: Reports: No symptoms Hematologic/Lymphatic: Reports: no symptoms Immunologic: Reports: no symptoms ED EXAM, GENERAL - Physical Exam Exam: See Below Exam Limited By: No limitations General Appearance: alert, WD/WN, no apparent distress Eye Exam: bilateral eye: EOMI, PERRL Ears: normal external exam, normal canal, hearing grossly normal, normal TMs Nose: normal inspection, normal mucosa, no blood Throat/Mouth: Normal inspection, Normal lips, Normal teeth, Normal gums, Other ( Dry muchal membranes) Head: atraumatic, normocephalic Neck: normal inspection, supple, non-tender, full range of motion. No: lymphadenopathy (L) Respiratory/Chest: no respiratory distress, lungs clear, normal breath sounds, no accessory muscle use, chest non-tender Cardiovascular: normal peripheral pulses, no edema, no JVD, no murmur, no rub, tachycardia GI/Abdominal: normal bowel sounds, soft, non tender, no organomegaly, no distention, no abnormal bruit, no mass. No: distended, guarding, tender, abnormal bowel sounds: Back Exam: normal inspection, full range of motion Extremities: normal inspection, normal range of motion, non-tender, no pedal edema, normal capillary refill Neurological: alert, oriented, CN II-XII intact, normal cognition, normal gait, no motor/sensory deficits Skin Exam: Warm, Dry, Intact, Normal color, No rash, Other (Mild tenting) Lymphatic: other Course - Vital Signs Text/Narrative:: Chest x-ray labs CBC BMP lactic acid urine was ordered bolus normal saline will be given Chest x-ray revealed mildly flattened diaphragm no acute process Labs were normal lactic acid levels 1.4 I have rechecked the patient her rate has decreased is still tachycardic at 112 Last Recorded V/S: Last Vital Signs Temp 37.2 C 11/15/16 09:42 Pulse 74 11/15/16 09:42 Resp 18 11/15/16 09:42 BP 117/67 11/15/16 09:42 Pulse Ox 98 11/15/16 09:42 - Orders/Labs/Meds Orders: Active Orders 24 hr Category Date Time Status Chest 2V [CR] Stat Exams 11/14/16 18:54 Taken CULTURE BLOOD [BC] Stat Lab 11/14/16 19:20 Results CULTURE BLOOD [BC] Stat Lab 11/14/16 19:25 Received UA W/MICROSCOPIC [URIN] Stat Lab 11/14/16 18:54 Uncollected Sodium Chloride 0.9% [Normal Saline] 1,000 ml Med 11/14/16 19:15 Active IV ASDIRECTED Blood Culture x2 Reflex Set [OM.PC] Stat Oth 11/14/16 18:54 Ordered Medication Orders Acetaminophen (Tylenol) 650 mg PO Q4H PRN PRN Reason: analgesia/fever Aspirin (Halfprin) 162 mg PO DAILY [facility] Last Admin: 11/15/16 07:52 Dose: 162 mg Diltiazem HCl (Cardizem) 30 mg PO BID [facility] Last Admin: 11/15/16 07:53 Dose: 30 mg Docusate Sodium (Colace) 100 mg PO DAILY [facility] Last Admin: 11/15/16 07:52 Dose: 100 mg Famotidine (Pepcid) 20 mg PO BID [facility] Last Admin: 11/15/16 07:52 Dose: 20 mg Gabapentin (Neurontin) 300 mg PO TID [facility] Last Admin: 11/15/16 07:53 Dose: 300 mg Sodium Chloride (Normal Saline) 1,000 mls @ 100 mls/hr IV ASDIRECTED [facility] Last Admin: 11/15/16 05:53 Dose: 250 mls/hr Infusion: 11/15/16 05:48 Dose: 250 mls/hr Admin: 11/15/16 01:48 Dose: 250 mls/hr Infusion: 11/14/16 23:47 Dose: 250 mls/hr Admin: 11/14/16 19:47 Dose: 250 mls/hr Magnesium Sulfate 4 gm/ Premix 100 mls @ 25 mls/hr IV ONETIME ONE Stop: 11/15/16 12:06 Last Admin: 11/15/16 09:02 Dose: 25 mls/hr Levalbuterol HCl (Xopenex) 1.25 mg NEB Q2H PRN PRN Reason: Shortness of Breath Iodine [Kelp] 150 (Mcg (Own Supply)) 0 mcg PO DAILY [facility] Last Admin: 11/15/16 07:53 Dose: Prednisone (Prednisone) 10 mg PO DAILY [facility] Last Admin: 11/15/16 07:53 Dose: 10 mg Tiotropium [place] (Spiriva Handihaler) 18 mcg INH DAILY [facility] Last Admin: 11/15/16 08:56 Dose: 1 puff Labs: Laboratory Tests 11/14/16 11/14/16 11/14/16 Range/Units 19:25 19:25 19:25 WBC 6.7 (4.0-10.0) x10^3/uL RBC 4.03 (4.00-5.50) x10^6/uL Hgb 11.9 L (12.0-16.0) g/dL Hct 38.3 (33.0-47.0) % MCV 95.0 H (78.0-93.0) fL MCH 29.5 (26.0-32.0) pg MCHC 31.1 L (32.0-36.0) g/dL RDW Coeff of Cornelius 13.6 (10.0-15.0) % Plt Count 274 (130-400) x10^3/uL Neut % (Auto) 67.2 (50.0-80.0) % Lymph % (Auto) 21.9 L (25.0-50.0) % Hettinger % (Auto) 8.9 (2.0-11.0) % Eos % (Auto) 1.5 (0.0-4.0) % Baso % (Auto) 0.5 (0.2-1.2) % Sodium 136 (136-145) mmol/L Potassium 4.3 (3.5-5.1) mmol/L Chloride 100 (98-107) mmol/L Carbon Dioxide 16 L (21-32) mmol/L BUN 17 (7-18) mg/dL Creatinine 1.0 (0.55-1.02) mg/dL Est Cr Clr Drug Dosing 28.70 mL/min Estimated GFR (MDRD) 54 Glucose 73 L (74-106) mg/dL Lactic Acid 1.7 (0.4-2.0) mmol/L Calcium 8.2 L (8.5-10.1) mg/dL Meds: Medications Generic Name Dose Route Start Last Admin Trade Name Geovany PRN Reason Stop Dose Admin Acetaminophen 650 mg 11/14/16 20:49 Tylenol PO Q4H PRN analgesia/fever Aspirin 162 mg 11/15/16 08:00 11/15/16 07:52 Halfprin PO 162 mg DAILY YOUSUF Administration Diltiazem HCl 30 mg 11/15/16 08:00 11/15/16 07:53 Cardizem PO 30 mg BID [facility] Administration Docusate Sodium 100 mg 11/15/16 08:00 11/15/16 07:52 Colace PO 100 mg DAILY YOUSUF Administration Famotidine 20 mg 11/15/16 08:00 11/15/16 07:52 Pepcid PO 20 mg BID YOUSUF Administration Gabapentin 300 mg 11/15/16 08:00 11/15/16 07:53 Neurontin PO 300 mg TID YOUSUF Administration Sodium Chloride 1,000 mls @ 100 mls/hr 11/14/16 19:15 11/15/16 05:53 Normal Saline IV 250 mls/hr ASDIRECTED [facility] Administration Magnesium Sulfate 4 gm/ Premix 100 mls @ 25 mls/hr 11/15/16 08:07 11/15/16 09 :02 IV 11/15/16 12:06 25 mls/hr ONETIME ONE Administration Levalbuterol HCl 1.25 mg 11/14/16 20:46 Xopenex NEB Q2H PRN Shortness of Breath Iodine [Kelp] 150 0 mcg 11/15/16 08:00 11/15/16 07:53 Mcg (Own Supply) PO Not Given DAILY [facility] Prednisone 10 mg 11/15/16 08:00 11/15/16 07:53 Prednisone PO 10 mg DAILY [facility] Administration Tiotropium [place] 18 mcg 11/15/16 08:00 11/15/16 08:56 Spiriva Handihaler INH 1 puff DAILY [facility] Administration Discontinued Medications Generic Name Dose Route Start Last Admin Trade Name Goevany PRN Reason Stop Dose Admin Calcium Gluconate 1 gm 11/15/16 08:03 11/15/16 08:58 Calcium Gluconate IVPUSH 11/15/16 08:04 1 gm ONETIME ONE Administration Enoxaparin Sodium 30 mg 11/15/16 18:00 Lovenox SUBCUT DAILY@1800 YOUSUF Hydroxychloroquine Sulfate 200 mg 11/15/16 08:00 11/15/16 07:52 Plaquenil PO 200 mg BID YOUSUF Administration Ondansetron HCl 8 mg/ Sodium 104 mls @ 400 mls/hr 11/14/16 19:12 11/14/16 19: 48 Chloride IV 11/14/16 19:27 400 mls/hr ONETIME ONE Administration Levofloxacin/Dextrose 750 mg/ 150 mls @ 100 mls/hr 11/14/16 20:30 11/14/16 20 :40 Premix IV 100 mls/hr Q24H YOUSUF Administration Methylprednisolone Sodium Succinate 125 mg 11/14/16 21:00 11/14/16 22:11 Solu-Medrol IVPUSH 125 mg Q12H YOUSUF Administration Non-Formulary Medication 10 mg 11/15/16 08:00 11/15/16 07:53 Leflunomide [Leflunomide] PO Not Given DAILY [facility] Sulfasalazine 1,500 mg 11/15/16 08:[address] PO BIDMEALS [facility] Sulfasalazine 1,500 mg 11/15/16 08:00 11/15/16 09:[address] PO Not Given BIDMEALS [facility] Departure - Departure Time of Disposition: 22:30 Disposition: Admitted As Inpatient 64 Condition: fair Clinical Impression: COPD exacerbation, Tachycardia, Dehydration Clinical Impression: (Ruled Out): Pneumonia - My Orders Last 24 Hours: My Active Orders 11/14/16 18:54 Chest 2V [CR] Stat UA W/MICROSCOPIC [URIN] Stat Blood Culture x2 Reflex Set [OM.PC] Stat 11/14/16 19:15 Sodium Chloride 0.9% [Normal Saline] 1,000 ml IV ASDIRECTED 11/14/16 19:20 CULTURE BLOOD [BC] Stat 11/14/16 19:25 CULTURE BLOOD [BC] Stat - Assessment/Plan Last 24 Hours: My Active Orders 11/14/16 18:54 Chest 2V [CR] Stat UA W/MICROSCOPIC [URIN] Stat Blood Culture x2 Reflex Set [OM.PC] Stat 11/14/16 19:15 Sodium Chloride 0.9% [Normal Saline] 1,000 ml IV ASDIRECTED 11/14/16 19:20 CULTURE BLOOD [BC] Stat 11/14/16 19:25 CULTURE BLOOD [BC] Stat
[2016-11-14] MEDS: Sodium Chloride 0.9% 1,000 ML IV SCH (19:47)
[2016-11-14] MEDS ORDERED: Levofloxacin/Dextrose 5%-Water 750 MG in Premix Bag 1 BAG IV SCH (20:30)
[2016-11-14] MEDS ORDERED: Levalbuterol HCl 1.25 MG/0.5 ML Neb NEB PRN (20:46)
[2016-11-14] MEDS ORDERED: Acetaminophen 325 MG Tab PO PRN (20:49)
[2016-11-14] MEDS ORDERED: methylPREDNISolone Sodium Succinate 125 MG/2 ML SDV IVPUSH SCH (21:00)
[2016-11-15] MEDS: Sodium Chloride 0.9% 1,000 ML IV SCH ×2 (01:48→05:53)
[2016-11-15 07:32] LABS: CHLORIDE,CL 108 mmol/L (98-107); SODIUM,NA 139 mmol/L (136-145)
[2016-11-15] MEDS: Gabapentin 300 MG Cap PO SCH ×2 (07:53→12:00)
[2016-11-15] MEDS ORDERED: sulfaSALAzine 500 MG Tab.EC PO SCH ×2 (08:00)
[2016-11-15] MEDS ORDERED: Docusate Sodium 100 MG Cap PO SCH (08:00)
[2016-11-15] MEDS ORDERED: Diltiazem IR 30 MG Tab PO SCH (08:00)
[2016-11-15] MEDS ORDERED: Aspirin 81 MG Tab.EC PO SCH (08:00)
[2016-11-15] MEDS ORDERED: Tiotropium Inhaler 18 MCG Inhalation Powder Cap Kit of 5 INH SCH (08:00)
[2016-11-15] MEDS ORDERED: predniSONE 10 MG Tab PO SCH (08:00)
[2016-11-15] MEDS ORDERED: LEFLUNOMIDE 10 MG PO SCH (08:00)
[2016-11-15] MEDS ORDERED: Hydroxychloroquine 200 MG Tab PO SCH (08:00)
[2016-11-15] MEDS ORDERED: IODINE 150 MCG PO SCH (08:00)
[2016-11-15] MEDS ORDERED: Famotidine 20 MG Tab PO SCH (08:00)
[2016-11-15] MEDS ORDERED: Calcium Gluconate 10% 1 GM/10 ML SDV IVPUSH ONE (08:03)
[2016-11-15] MEDS ORDERED: Magnesium Sulfate/Water 4 GM in Premix Bag 1 BAG IV ONE (08:07)
--- NOTE | 2016-11-15 09:03 | PN ---
Progress Note for MIRIAM PALACIOS Date: 11/15/2016 Room #: VM.210 SUBJECTIVE: This is a 71-year-old admitted for weakness and shortness of breath. She started having diarrhea again on the . It was just water, brown. Every time she urinated, but she has had none since she has been here. She also started vomiting that day, but it was more of dry heaves. On the same day, she also began to have really labored breathing, especially when she laid down at night. She was not coughing, but she is coughing a little bit more here. She does have a known history of COPD. She had recent admission for influenza back on 10/13 and then admitted for dehydration with nausea, vomiting, and diarrhea on the , was felt to be due to her medications for treatment of influenza. Otherwise, she also had diarrhea before her influenza admit, but between these episodes, she was okay without problems. She has been afebrile. She had a normal white count on admission. Renal function was normal. OBJECTIVE: Vital Signs: Temperature 97.6, pulse 88, blood pressure 116/70, respiratory rate 20, O2 of 94 on 2 L. General: She is in no acute distress. Heart: Regular rate and rhythm with murmur. Lung: Sounds are clear to auscultation bilaterally without crackles or wheezes. Abdomen: Positive bowel sounds. Soft and nontender. Extremities: Warm and dry. No edema. Mental Status: Alert and orientated x3. The patient did improve from heart rates in the 130s down to 100 with a liter of fluid. She has been in a sinus rhythm. LABORATORY DATA: Lab work repeated this morning did show some drop in hemoglobin from 11.9 to 9.4, likely due to hemodilution. Her discharging hemoglobin on 10/23 was actually 9.1. White count dropped slightly to 3.5, platelets 250. Sodium 139, potassium 4.5, chloride 108, bicarb 16, BUN 18, creatinine 0.8, glucose 126, calcium dropped to 6.5, but albumin not available. Magnesium 1.5. ASSESSMENT: 1. Nausea, vomiting, diarrhea, now resolved, which resulted a and tachycardia and dehydration. 2. Sinus tachycardia due to dehydration, improved with IV fluids. 3. Dehydration. 4. Recurrent diarrhea episodes that are self-limited. 5. Hypocalcemia, probably some element here of low albumin as well, but we will still give her some IV calcium gluconate this morning and repeat this afternoon. 6. Hypomagnesemia. I will replace IV. Due to oral magnesium, probably it could potentially contribute to more diarrhea. 7. Chronic anemia. We will repeat a hemoglobin this afternoon to ensure no bleeding. I have stopped her Lovenox. 8. Chronic rheumatoid arthritis. I will try to hold some of her rheumatoid arthritis medications, but continue the prednisone 10 mg daily. She was currently weaned down to 5 mg daily 2 weeks ago. 9. Concern for chronic obstructive pulmonary disease exacerbation. I am going to go ahead and stop the IV Levaquin. I do not feel she had an exacerbation. Her chest x-ray looks okay. We will continue the p.r.n. nebulizers and her home Spiriva. PLAN: At this point, we will continue IV fluids. We will turn them down to 100 mL/h. We will repeat lab work around 2:30 this afternoon. If all that looks well, we will be able to discharge her later this afternoon home to follow up as outpatient in the clinic. She does have a rheumatology follow up next Friday. BRIGHT: 11/15/2016 08:34:28 MODL: 11/15/2016 08:52:00 /[id number] KRISTEN
[2016-11-15 15:06] LABS: CHLORIDE,CL 107 mmol/L (98-107); SODIUM,NA 136 mmol/L (136-145)
--- NOTE | 2016-11-15 17:03 | DISCH ---
PRIMARY DISCHARGE DIAGNOSES: 1. Nausea, vomiting, diarrhea which has been recurrent possibly from adrenal insufficiency which would be secondary due to longstanding prednisone use for RA, resolved on admission. 2. Sinus tachycardia, improved with treatment of dehydration. She is on Cardizem as an outpatient. 3. Hypocalcemia with corrected calcium on discharge of 7.9, on calcium supplements as an outpatient. No Prolia given since July. 4. Moderate malnutrition with albumin of 2.6. 5. Chronic rheumatoid arthritis, chronic anemia with stable hemoglobin at 9.2 on discharge. No signs of bleeding. 6. Chronic obstructive pulmonary disease with possible exacerbation. She had some mild wheezing in the left upper lung which was new on discharge. She had an x-ray repeated which failed to reveal any pneumonia. She was given a dose of IV Levaquin initially. This was discontinued on discharge. She will be treated with prednisone and inhalers. REASON FOR ADMISSION: On the date of admission, this 71-year-old was brought into the ER because of diarrhea for at least 2 days, please see progress note dated today. As she was given Solu-Medrol 125 and Levaquin, her diarrhea stopped. She was given IV fluids. Her heart rate came down from the 130s and 140s down to 80s and 90s on discharge. She was feeling better. She was feeling less weak. She did admit that she will get occasional headaches off and on but was not overly irritable. Did have some stress and depression lately because her was just diagnosed with lung cancer. She did not have any salt craving episodes and does not feel overly fatigued. Her prednisone had been weaned down to 5 mg daily 2 weeks ago but was increased up to 10 mg daily and will continue on that on discharge. DISCHARGE INSTRUCTIONS: Otherwise, discharge plans and instructions: She will see Dr. Seals on Friday. We will keep prednisone at 10 mg daily. Discharge vitals included temperature 98.5, pulse 76, blood pressure 111/71, respiratory rate 16, and O2 of 95% on room air. The only change to her exam is there was some fine wheezing in the left upper lobe which was new from the exam this morning. She did not appear to be in any acute distress. On discharge, at the clinic, she will have a CBC and BMP as well. I will update her dairy associate about my concerns and we will arrange for some outpatient testing for adrenal insufficiency. We talked with her about how if she had it she would need stress doses of steroids when ill. I will also notify her employee benefits coordinator after Friday's visit of the prednisone dose. MKA: 11/15/2016 16:20:10 MODL: 11/15/2016 16:46:04 /[id number]
[2016-11-15 17:19] VITALS: BP 116/79
[2016-11-15] MEDS ORDERED: Enoxaparin 30 MG/0.3 ML Syringe SUBCUT SCH (18:00)
== END 2016-11-15 20:09 | disposition home or self-care (01) ==
LOC: VM.ED 18:39 → VM.MS 20:33
PROVIDERS: ADMIT Physician Assistant Medical; ATTEND Physician Assistant Medical
DX: R11.2 Nausea with vomiting, unspecified (principal); R19.7 Diarrhea, unspecified; R00.0 Tachycardia, unspecified; E83.51 Hypocalcemia; E46 Unspecified protein-calorie malnutrition; M06.9 Rheumatoid arthritis, unspecified; K21.9 Gastro-esophageal reflux disease without esophagitis; J44.9 Chronic obstructive pulmonary disease, unspecified; D64.9 Anemia, unspecified; Z88.8 Allergy status to other drugs, medicaments and biological substances; Z79.82 Long term (current) use of aspirin; Z79.899 Other long term (current) drug therapy; Z98.890 Other specified postprocedural states; Z90.49 Acquired absence of other specified parts of digestive tract; Z98.51 Tubal ligation status; Z87.891 Personal history of nicotine dependence
CPT/HCPCS: 36415; 71020; 80048; 80053; 81001; 83605; 83735; 85014; 85018; 85025; 87040; 93005; 94760; 96361; 96365; 96366; 96367; 96375; 99223; 99285; A9270; G0378; J0610; J1956; J2405; J2930; J3475; J7030; J7050; 96368

== ENCOUNTER 2018-01-24 06:35 | Emergency (ER) | payer MEDICARE ==
[2018-01-24] MEDS ORDERED: Ondansetron 4 MG/2 ML SDV IVPUSH ONE (06:59)
[2018-01-24] MEDS ORDERED: Sodium Chloride 0.9% 1,000 ML IV STA (06:59)
[2018-01-24] MEDS ORDERED: cefTRIAXone 1 GM Vial IVPUSH ONE (06:59)
[2018-01-24] MEDS ORDERED: Sodium Chloride 0.9% 10 ML Syringe FLUSH PRN (06:59)
--- NOTE | 2018-01-24 07:06 | EDM.PDOC ---
ED HPI GENERAL MEDICAL PROBLEM - General Chief Complaint: Gastrointestinal Problem Stated Complaint: Shortness of breath, N/V, diarrhea Time Seen by Provider: 01/24/18 06:45 Source of Information: Reports: Patient History Limitations: Reports: No Limitations - History of Present Illness INITIAL COMMENTS - FREE TEXT/NARRATIVE: Patient comes into the emergency department with complaints of shortness of breath, nausea/vomiting for approximately 1 day. Patient states she was in to see her remote sensing engineer 2 days ago when he completed an x-ray of her chest. The x -rays show that showed new infiltrates with some emphysema changes on the right lung. Patient was set up to have a CT of the chest abdomen pelvis on Friday for further evaluation regarding this. Patient comes in the emergency department this morning for she could no longer handle the nausea vomiting shortness of breath. It is unsure if any labs were completed from do not have any records that x-ray image revealed volume loss of left lung with new infiltrates of the left upper lung and also emphysema changes of the right lung. Patient states she 's been traveling between [facility] over the course of lasts 2 weeks every day to visit her who is in the hospital for low oxygenation related to lung CA. She states that she hasn't been taking the best care of herself she's been concerned and worried been trying to take care of her . Patient denies having any fever, dizziness, lightheadedness, any changes in her urine. Has had a cough but can not remember for how long. Denies sputum production. Decrease in appetite however that is a chronic issue not acute and is working with PCP regarding issue. 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 Seropositive Rheumatoid Arthritis active worsening of multiple sites. RF positive. X-rays of hands 2006 showed erosion and narrowing of joints. Mainly affects her hands and shoulders. Pt is on prednisone 5mg daily and 7.5mg PRN for pain. Pt does have a PET scan ordered for Friday for consistent elevated ESR/CRP and concerns with possible malignancy. Onset: Gradual Severity: Mild Improves with: Reports: None Worsens with: Reports: None Associated Symptoms: Reports: Nausea/Vomiting, Shortness of Breath, Weakness. Denies: Confusion, Chest Pain, Cough, cough w sputum, Syncope Treatments BACK PANEL PADDER: Reports: Acetaminophen - Related Data Allergies Allergy/AdvReac Type Severity Reaction Status Date / Time hydrocodone AdvReac Dizziness Verified 01/24/18 07:00 meperidine HCl [From Demerol] AdvReac Vomiting Verified 01/24/18 07:00 tramadol AdvReac Nausea Verified 01/24/18 07:00 Home Meds: Home Meds Albuterol [Proair HFA] 1 puff INH Q4HR PRN 12/24/14 [History] Aspirin [Ecotrin] 162.5 mg PO DAILY 12/24/14 [History] Cimetidine 200 mg PO BID 12/24/14 [History] Denosumab [Prolia] 60 mg SUBCUT ASDIRECTED 12/24/14 [History] Hydroxychloroquine Sulfate [Plaquenil] 200 mg PO BID 12/24/14 [History] Calcium Carbonate [Calcium] 1,000 mg PO BID 10/29/15 [History] Cholecalciferol (Vitamin D3) [Vitamin D3] 1,000 unit PO DAILY 10/29/15 [History] Gabapentin [Neurontin] 300 mg PO TID 10/29/15 [History] Tiotropium [Spiriva HandiHaler] 18 mcg INH DAILY 10/13/16 [History] Leflunomide 10 mg PO DAILY 10/21/16 [History] Simvastatin 10 mg PO DAILY 10/21/16 [History] sulfaSALAzine [Azulfidine] 1,500 mg PO BIDMEALS 10/21/16 [History] Acetaminophen [Tylenol] 650 mg PO Q4H PRN #30 tablet 11/15/16 [Rx] Azithromycin [Zithromax] 250 mg PO DAILY #6 tab 01/24/18 [Rx] Diltiazem HCl [Cardizem] 30 mg PO TID 01/24/18 [History] Potassium Chloride [Klor-Con 10] 10 meq PO BID 01/24/18 [History] predniSONE [Prednisone] 5 mg PO DAILY 01/24/18 [History] Past Medical History HEENT History: Reports: Epistaxis Cardiovascular History: Reports: Afib, Heart Murmur, High Cholesterol, Other ( See Below) Other Cardiovascular History: proxysmal ventricular tachycardia, mitral stenosis , mitral insufficiency, chronic chest pain Respiratory History: Reports: COPD, Other (See Below) Other Respiratory History: mycobacterium avium-intracellulare complex Gastrointestinal History: Reports: GERD, Hemorrhoids, Pancreatitis Genitourinary History: Reports: None ENTRY LEVEL History: Reports: Musculoskeletal History: Reports: Osteoporosis, RA, Other (See Below) Other Musculoskeletal History: chronic pain, sciatic pain, left shoulder pain, radicular leg pain Neurological History: Reports: CVA Psychiatric History: Reports: None Endocrine/Metabolic History: Reports: None Hematologic History: Reports: Anemia Immunologic History: Reports: Immunosuppression Oncologic (Cancer) History: Reports: None Dermatologic History: Reports: None - Infectious Disease History Infectious Disease History: Reports: Influenza - Past Surgical History HEENT Surgical History: Reports: Cataract Surgery, Tonsillectomy, Other (See Below) Respiratory Surgical History: Reports: Lung Resection, Other (See Below) GI Surgical History: Reports: Cholecystectomy Female Surgical History: Reports: Tubal Ligation Dermatological Surgical History: Reports: None Social & Family History - Family History Family Medical History: Noncontributory Respiratory: Reports: Asthma, COPD Endocrine/Metabolic: Reports: Diabetes, type II Oncologic: Reports: Pancreatic - Caffeine Use Caffeine Use: Reports: Coffee - Living Situation & Occupation Living situation: Reports: , with Significant Other ED ROS GENERAL - Review of Systems Review Of Systems: See Below Constitutional: Reports: Malaise, Weakness HEENT: Reports: No Symptoms Respiratory: Reports: Shortness of Breath Cardiovascular: Reports: No Symptoms Endocrine: Reports: No Symptoms GI/Abdominal: Reports: Diarrhea, Decreased Appetite, Nausea, Vomiting. Denies: Anorexia, Black Stool, Bloody Stool, Difficulty Swallowing, Distension, Flatus : Reports: No Symptoms Musculoskeletal: Reports: No Symptoms Skin: Reports: No Symptoms Neurological: Reports: No Symptoms Psychiatric: Reports: No Symptoms Hematologic/Lymphatic: Reports: No Symptoms Immunologic: Reports: No Symptoms ED EXAM, GENERAL - Physical Exam Exam: See Below Exam Limited By: No Limitations General Appearance: Alert, WD/WN, No Apparent Distress Head: Atraumatic, Normocephalic Neck: Normal Inspection, Supple, Non-Tender, Full Range of Motion Respiratory/Chest: No Respiratory Distress, No Accessory Muscle Use, Chest Non- Tender, Decreased Breath Sounds, Prolonged Expiration. No: Lungs Clear, Normal Breath Sounds Cardiovascular: Normal Peripheral Pulses, No Edema, No JVD, JVD, Tachycardia Back Exam: Normal Inspection, Full Range of Motion Extremities: Normal Inspection, Normal Range of Motion, Normal Capillary Refill Neurological: Alert, Oriented, CN II-XII Intact, Normal Gait Psychiatric: Normal Affect, Normal Mood Skin Exam: Warm, Dry, Intact, Normal Color, No Rash EKG INTERPRETATION EKG Date: 01/24/18 Time: 07:46 Rhythm: Other (tachycardia) Course - Vital Signs Last Recorded V/S: Last Vital Signs Temp 37.7 C 01/24/18 06:35 Pulse 111 H 01/24/18 07:52 Resp 20 01/24/18 07:52 BP 127/80 01/24/18 07:52 Pulse Ox 96 01/24/18 07:52 - Orders/Labs/Meds Orders: Active Orders 24 hr Category Date Time Status EKG Documentation Completion [RC] STAT Care 01/24/18 06:59 Chest 2V [CR] Stat Exams 01/24/18 07:00 Ordered CULTURE BLOOD [BC] Stat Lab 01/24/18 07:30 Results CULTURE BLOOD [BC] Stat Lab 01/24/18 07:37 Received Sodium Chloride 0.9% [Saline Flush] Med 01/24/18 06:59 Active 10 ml FLUSH ASDIRECTED PRN Blood Culture x2 Reflex Set [OM.PC] Stat Oth 01/24/18 06:59 Ordered Peripheral IV Insertion Adult [OM.PC] Stat Oth 01/24/18 06:59 Ordered Medication Orders Sodium Chloride (Saline Flush) 10 ml FLUSH ASDIRECTED PRN PRN Reason: Keep Vein Open Labs: Laboratory Tests 01/24/18 01/24/18 01/24/18 Range/Units 07:30 07:30 07:30 WBC 11.6 H (4.0-10.0) x10^3/uL RBC 3.64 L (4.00-5.50) x10^6/uL Hgb 10.7 L D (12.0-16.0) g/dL Hct 34.7 (33.0-47.0) % MCV 95.3 H (78.0-93.0) fL MCH 29.4 (26.0-32.0) pg MCHC 30.8 L (32.0-36.0) g/dL RDW Coeff of Cornelius 13.0 (10.0-15.0) % Plt Count 384 D (130-400) x10^3/uL Neut % (Auto) 75.3 (50.0-80.0) % Lymph % (Auto) 12.9 L (25.0-50.0) % [place] % (Auto) 10.7 (2.0-11.0) % Eos % (Auto) 0.9 (0.0-4.0) % Baso % (Auto) 0.2 (0.2-1.2) % Sodium 138 (136-145) mmol/L Potassium 3.9 (3.5-5.1) mmol/L Chloride 102 (98-107) mmol/L Carbon Dioxide 24 (21-32) mmol/L Anion Gap 15.9 (10-20) mmol/L BUN 12 (7-18) mg/dL Creatinine 0.8 (0.55-1.02) mg/dL Est Cr Clr Drug Dosing 39.76 mL/min Estimated GFR (MDRD) > 60 Glucose 63 L (74-106) mg/dL Lactic Acid 1.1 (0.4-2.0) mmol/L Calcium 8.6 D (8.5-10.1) mg/dL Corrected Calcium 9.56 D (8.5-10.1) mg/dL Total Bilirubin 0.4 (0.2-1.0) mg/dL AST 24 (15-37) U/L ALT 16 (14-59) U/L Alkaline Phosphatase 96 (46-116) U/L Total Protein 6.9 (6.4-8.2) g/dL Albumin 2.8 L (3.4-5.0) g/dL Globulin 4.1 Albumin/Globulin Ratio 0.68 Meds: Medications Generic Name Dose Route Start Last Admin Trade Name Freq PRN Reason Stop Dose Admin Sodium Chloride 10 ml 01/24/18 06:59 Saline Flush FLUSH ASDIRECTED PRN Keep Vein Open Discontinued Medications Generic Name Dose Route Start Last Admin Trade Name Freq PRN Reason Stop Dose Admin Ceftriaxone Sodium 1 gm 01/24/18 06:59 01/24/18 07:49 Rocephin IVPUSH 01/24/18 07:00 1 gm ONETIME ONE Administration Sodium Chloride 1,000 mls @ 1,000 mls/hr 01/24/18 06:59 01/24/18 07:10 Normal Saline IV 01/24/18 07:58 1,000 mls/hr NOW STA Administration Ondansetron HCl 4 mg 01/24/18 06:59 01/24/18 07:12 Zofran IVPUSH 01/24/18 07:00 4 mg ONETIME ONE Administration Departure - Departure Time of Disposition: 09:00 Disposition: Home, Self-Care 01 Condition: Good Clinical Impression: Pneumonia Qualifiers: Pneumonia type: due to unspecified organism Laterality: right Lung location: upper lobe of lung Qualified Code(s): J18.1 - Lobar pneumonia, unspecified organism - Discharge Information Instructions: Dehydration, Adult, [id number], Community-Acquired Pneumonia, Adult Forms: ED Department Discharge Additional Instructions: 1. rest 2. increase water intake 3. Keep your appointment next week to have the PET scan completed 4. Contact your provider and let them know about your visit today and the medications you have been given 5. Return if symptoms worsen or progress 6. Activity and diet as tolerated 7. May need to sleep with the head of the bed elevated to help with breathing comfortably - Problem List Review Problem List Initiated/Reviewed/Updated: Yes - My Orders Last 24 Hours: My Active Orders 01/24/18 06:59 EKG Documentation Completion [RC] STAT Sodium Chloride 0.9% [Saline Flush] 10 ml FLUSH ASDIRECTED PRN Blood Culture x2 Reflex Set [OM.PC] Stat Peripheral IV Insertion Adult [OM.PC] Stat 01/24/18 07:00 Chest 2V [CR] Stat 01/24/18 07:30 CULTURE BLOOD [BC] Stat 01/24/18 07:37 CULTURE BLOOD [BC] Stat - Assessment/Plan Last 24 Hours: My Active Orders 01/24/18 06:59 EKG Documentation Completion [RC] STAT Sodium Chloride 0.9% [Saline Flush] 10 ml FLUSH ASDIRECTED PRN Blood Culture x2 Reflex Set [OM.PC] Stat Peripheral IV Insertion Adult [OM.PC] Stat 01/24/18 07:00 Chest 2V [CR] Stat 01/24/18 07:30 CULTURE BLOOD [BC] Stat 01/24/18 07:37 CULTURE BLOOD [BC] Stat Assessment:: 1. SOB 2. Nausea/vomiting Plan: 1. LABS completed in the ER results reviewed with the patient (utilized sepsis protocol initially due to pt's presenting history and previous xray completed) 2. X-ray completed in the ER results reviewed with the patient 3. IV hydration provided in the ER given the nausea and vomiting episodes throughout the night along with tachycardia 4. Zofran given for nausea 5. Rocephin provided completed for x-ray changes, pt's clinical symptoms and shortness of breath 6. Pt is feeling much better with the above treatment. She would like to be placed on oral antibiotics and be discharged. She does have a PET scan on Friday that she does not want to miss in [place]. Did discuss admission if she would feel more comfortable or transfer to [place] in hopes to have the PET scan being hospitalized if need be. Currently pt feels Discharge with oral antibiotics and have close follow up. 7. Azithromycin was sent to the pharmacy 8. Discharge education provided to the pt and family 9. Follow up information given
[2018-01-24 07:53] VITALS: BP 127/80
[2018-01-24 08:11] LABS: CHLORIDE,CL 102 mmol/L (98-107); SODIUM,NA 138 mmol/L (136-145)
== END 2018-01-24 09:15 | disposition home or self-care (01) ==
LOC: VM.ED 06:35
DX: J18.9 Pneumonia, unspecified organism (principal); I48.91 Unspecified atrial fibrillation; E78.00 Pure hypercholesterolemia, unspecified; J44.9 Chronic obstructive pulmonary disease, unspecified; Z86.73 Personal history of transient ischemic attack (TIA), and cerebral infarction without residual deficits; Z79.82 Long term (current) use of aspirin; Z88.5 Allergy status to narcotic agent; Z79.899 Other long term (current) drug therapy
CPT/HCPCS: 36415; 71046; 80053; 83605; 85025; 87040; 93005; 96361; 96374; 96375; 99285; J0696; J2405; J7030; 99284-GF

== ENCOUNTER 2018-02-19 15:26 | Inpatient (IN) | payer MEDICARE ==
[2018-02-19] MEDS ORDERED: Sodium Chloride 0.9% 10 ML Syringe FLUSH PRN (15:45)
[2018-02-19] MEDS ORDERED: cefTRIAXone 2 GM Vial IVPUSH ONE (15:56)
[2018-02-19 16:59] LABS: CHLORIDE,CL 98 mmol/L (98-107); SODIUM,NA 133 mmol/L (136-145)
[2018-02-19 17:03] LABS: ANION GAP 13.2 mmol/L (10-20)
[2018-02-19] MEDS ORDERED: Azithromycin 500 MG in Sodium Chloride 0.9% 250 ML IV ONE (17:09)
[2018-02-19] MEDS ORDERED: Albuterol/Ipratropium 3.0-0.5 MG/3 ML Neb Soln NEB PRN (17:42)
[2018-02-19] MEDS ORDERED: Lactated Ringers 1,000 ML IV SCH (17:45)
[2018-02-19] MEDS ORDERED: Acetaminophen 325 MG Tab PO PRN (17:45)
[2018-02-19] MEDS: Magnesium Oxide 400 MG Tab PO SCH ×2 (18:40→20:17)
[2018-02-19] MEDS: methylPREDNISolone Sodium Succinate 40 MG/1 ML SDV IVPUSH SCH (18:43)
[2018-02-19] MEDS: Enoxaparin 30 MG/0.3 ML Syringe SUBCUT SCH (20:17)
[2018-02-19] MEDS: Diltiazem IR 30 MG Tab PO SCH (20:17)
[2018-02-19] MEDS: Gabapentin 300 MG Cap PO SCH (20:17)
[2018-02-19] MEDS: Famotidine 20 MG Tab PO SCH (20:19)
[2018-02-19] MEDS ORDERED: Piperacillin/Tazobactam 4.5 GM in Sodium Chloride 0.9% 100 ML IV ONE (22:00)
[2018-02-19] MEDS ORDERED: Piperacillin/Tazobactam 3.375 GM in Sodium Chloride 0.9% 100 ML IV SCH (22:00)
[2018-02-19] MEDS ORDERED: Promethazine 25 MG Tab PO PRN (22:46)
--- NOTE | 2018-02-19 23:00 | EDM.PDOC ---
ED HPI GENERAL MEDICAL PROBLEM - General Chief Complaint: Respiratory Problem Time Seen by Provider: 02/19/18 15:35 Source of Information: Reports: Patient History Limitations: Reports: No Limitations - History of Present Illness INITIAL COMMENTS - FREE TEXT/NARRATIVE: Pt. presents to ER with complaints of cough, fever, dyspnea, and chills. She states that she has been experiencing the symptoms for the past several days. Cough is non-productive. Denies any chest pain. No peripheral edema. 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 Pt. was brought to the clinic initially but was later brought over to ER for further workup. - Related Data Allergies Allergy/AdvReac Type Severity Reaction Status Date / Time hydrocodone AdvReac Dizziness Verified 02/19/18 15:57 meperidine HCl [From Demerol] AdvReac Vomiting Verified 02/19/18 15:57 tramadol AdvReac Nausea Verified 02/19/18 15:57 Home Meds: Home Meds Albuterol [Proair HFA] 1 puff INH Q4HR PRN 12/24/14 [History] Aspirin [Ecotrin] 162.5 mg PO DAILY 12/24/14 [History] Cimetidine 200 mg PO BID 12/24/14 [History] Denosumab [Prolia] 60 mg SUBCUT ASDIRECTED 12/24/14 [History] Hydroxychloroquine Sulfate [Plaquenil] 200 mg PO BID 12/24/14 [History] Calcium Carbonate [Calcium] 1,000 mg PO DAILY 10/29/15 [History] Cholecalciferol (Vitamin D3) [Vitamin D3] 1,000 unit PO DAILY 10/29/15 [History] Gabapentin [Neurontin] 300 mg PO TID 10/29/15 [History] Leflunomide 10 mg PO DAILY 10/21/16 [History] Simvastatin 10 mg PO DAILY 10/21/16 [History] sulfaSALAzine [Azulfidine] 1,500 mg PO BIDMEALS 10/21/16 [History] Diltiazem HCl [Cardizem] 30 mg PO TID 01/24/18 [History] Potassium Chloride [Klor-Con 10] 10 meq PO BID 01/24/18 [History] predniSONE [Prednisone] 5 mg PO DAILY 01/24/18 [History] Acetaminophen [Tylenol] 325 mg PO Q4H PRN 02/19/18 [History] Ferrous Gluconate 324 mg PO DAILY 02/19/18 [History] Umeclidinium Brm/Vilanterol Tr [Anoro Ellipta 62.5-25 MCG] 1 puff IH DAILY 02/19 [History] Past Medical History HEENT History: Reports: Epistaxis Cardiovascular History: Reports: Afib, Heart Murmur, High Cholesterol, Other ( See Below) Other Cardiovascular History: proxysmal ventricular tachycardia, mitral stenosis , mitral insufficiency, chronic chest pain Respiratory History: Reports: COPD, Other (See Below) Other Respiratory History: mycobacterium avium-intracellulare complex Gastrointestinal History: Reports: GERD, Hemorrhoids, Pancreatitis Genitourinary History: Reports: None 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: Musculoskeletal History: Reports: Osteoporosis, RA, Other (See Below) Other Musculoskeletal History: chronic pain, sciatic pain, left shoulder pain, radicular leg pain Neurological History: Reports: CVA Psychiatric History: Reports: None Endocrine/Metabolic History: Reports: None Hematologic History: Reports: Anemia Immunologic History: Reports: Immunosuppression Oncologic (Cancer) History: Reports: None Dermatologic History: Reports: None - Infectious Disease History Infectious Disease History: Reports: Influenza - Past Surgical History HEENT Surgical History: Reports: Cataract Surgery, Tonsillectomy, Other (See Below) Respiratory Surgical History: Reports: Lung Resection, Other (See Below) GI Surgical History: Reports: Cholecystectomy Female Surgical History: Reports: Tubal Ligation Dermatological Surgical History: Reports: None Social & Family History - Family History Family Medical History: Noncontributory Respiratory: Reports: Asthma, COPD Endocrine/Metabolic: Reports: Diabetes, type II Oncologic: Reports: Pancreatic - Tobacco Use Smoking Status *Q: Former Smoker Years of Tobacco use: 40 Used Tobacco, but Quit: No - Caffeine Use Caffeine Use: Reports: Coffee - Recreational Drug Use Recreational Drug Use: No - Living Situation & Occupation Living situation: Reports: , with Significant Other ED ROS GENERAL - Review of Systems Review Of Systems: See Below Constitutional: Reports: Fever, Chills, Malaise, Weakness HEENT: Reports: No Symptoms Respiratory: Reports: Shortness of Breath, Cough. Denies: Wheezing, Pleuritic Chest Pain, Sputum, Hemoptysis Cardiovascular: Reports: No Symptoms Endocrine: Reports: No Symptoms GI/Abdominal: Reports: No Symptoms : Reports: No Symptoms Musculoskeletal: Reports: No Symptoms Skin: Reports: No Symptoms Neurological: Reports: No Symptoms Psychiatric: Reports: No Symptoms Hematologic/Lymphatic: Reports: No Symptoms Immunologic: Reports: No Symptoms ED EXAM, GENERAL - Physical Exam Exam: See Below Exam Limited By: No Limitations General Appearance: Alert, WD/WN, No Apparent Distress Eye Exam: Bilateral Eye: EOMI, Normal Fundi, Normal Inspection, PERRL Ears: Normal External Exam, Normal Canal, Hearing Grossly Normal, Normal TMs Ear Exam: Bilateral Ear: Auricle Normal, Canal Normal, TM normal Nose: Normal Inspection, Normal Mucosa, No Blood Throat/Mouth: Normal Inspection, Normal Lips, Normal Teeth, Normal Gums, Normal Oropharynx, Normal Voice, No Airway Compromise Head: Atraumatic, Normocephalic Neck: Normal Inspection, Supple, Non-Tender, Full Range of Motion Respiratory/Chest: No Accessory Muscle Use, Chest Non-Tender, Decreased Breath Sounds Cardiovascular: Normal Peripheral Pulses, Regular Rate, Rhythm, No Edema, No Gallop, No JVD, No Murmur, No Rub Peripheral Pulses: 4+: Radial (L), Radial (R) GI/Abdominal: Normal Bowel Sounds, Soft, Non-Tender, No Organomegaly, No Distention, No Abnormal Bruit, No Mass (Female) Exam: Deferred Rectal (Female) Exam: Deferred Back Exam: Normal Inspection, Full Range of Motion, NT Extremities: Normal Inspection, Normal Range of Motion, Non-Tender, Normal Capillary Refill, No Pedal Edema Neurological: Alert, Oriented, CN II-XII Intact, Normal Cognition, Normal Gait, Normal Reflexes, No Motor/Sensory Deficits Psychiatric: Normal Affect, Normal Mood Skin Exam: Warm, Dry, Intact, Normal Color, No Rash Lymphatic: No Adenopathy Course - Vital Signs Last Recorded V/S: Last Vital Signs Temp 36.9 C 02/19/18 22:00 Pulse 87 02/19/18 22:00 Resp 18 02/19/18 22:00 BP 98/49 L 02/19/18 22:00 Pulse Ox 90 L 02/19/18 22:00 - Orders/Labs/Meds Orders: Active Orders 24 hr Category Date Time Status Oxygen Therapy [RC] PRN Care 02/19/18 15:45 Active Chest 1V Frontal [CR] Stat Exams 02/19/18 15:45 Taken CULTURE BLOOD [BC] Stat Lab 02/19/18 16:00 Received CULTURE BLOOD [BC] Stat Lab 02/19/18 16:09 Received UA W/MICROSCOPIC [URIN] Stat Lab 02/19/18 15:45 Ordered Sodium Chloride 0.9% [Saline Flush] Med 02/19/18 15:45 Active 10 ml FLUSH ASDIRECTED PRN Blood Culture x2 Reflex Set [OM.PC] Stat Oth 02/19/18 15:46 Ordered Peripheral IV Insertion Adult [OM.PC] Routine Oth 02/19/18 15:46 Ordered Medication Orders Acetaminophen (Tylenol) 325 mg PO Q4H PRN PRN Reason: Pain Albuterol/Ipratropium (Duoneb 3.0-0.5 Mg/3 Ml) 3 ml NEB Q4HRRT PRN PRN Reason: Cough Albuterol/Ipratropium (Duoneb 3.0-0.5 Mg/3 Ml) 3 ml NEB Q8HRRT [facility] Aspirin (Halfprin) 162 mg PO DAILY [facility] Azithromycin (Zithromax) 500 mg PO DAILY [facility] Diltiazem HCl (Cardizem) 30 mg PO TID [facility] Last Admin: 02/19/18 20:17 Dose: 30 mg Enoxaparin Sodium (Lovenox) 30 mg SUBCUT Q24H [facility] Last Admin: 02/19/18 20:17 Dose: 30 mg Famotidine (Pepcid) 10 mg PO BID [facility] Last Admin: 02/19/18 20:19 Dose: 10 mg Gabapentin (Neurontin) 300 mg PO TID [facility] Last Admin: 02/19/18 20:17 Dose: 300 mg Lactated Ringer's (Ringers, Lactated) 1,000 mls @ 100 mls/hr IV ASDIRECTED [facility] Stop: 02/20/18 03:44 Last Admin: 02/19/18 18:44 Dose: 100 mls/hr Piperacillin Sod/Tazobactam (Sod 3.375 gm/ Sodium Chloride) 100 mls @ 25 mls/ hr IV Q8H [facility] Magnesium Oxide (Magnesium Oxide) 400 mg PO BID [facility] Last Admin: 02/19/18 20:17 Dose: 400 mg Admin: 02/19/18 18:40 Dose: 400 mg Methylprednisolone Sodium Succinate (Solu-Medrol) 40 mg IVPUSH Q12H [facility] Last Admin: 02/19/18 18:43 Dose: 40 mg Promethazine HCl (Phenergan) 25 mg PO Q6H PRN PRN Reason: Nausea/Vomiting Simvastatin (Zocor) 10 mg PO DAILY [facility] Sodium Chloride (Saline Flush) 10 ml FLUSH ASDIRECTED PRN PRN Reason: Keep Vein Open Labs: Laboratory Tests 02/19/18 02/19/18 02/19/18 Range/Units 16:00 16:00 16:00 WBC 12.6 H (4.0-10.0) x10^3/uL RBC 3.31 L (4.00-5.50) x10^6/uL Hgb 9.3 L (12.0-16.0) g/dL Hct 30.1 L (33.0-47.0) % MCV 90.9 D (78.0-93.0) fL MCH 28.1 (26.0-32.0) pg MCHC 30.9 L (32.0-36.0) g/dL RDW Coeff of Cornelius 14.1 (10.0-15.0) % Plt Count 467 H D (130-400) x10^3/uL Neut % (Auto) 76.3 (50.0-80.0) % Lymph % (Auto) 12.4 L (25.0-50.0) % Tyler % (Auto) 10.4 (2.0-11.0) % Eos % (Auto) 0.7 (0.0-4.0) % Baso % (Auto) 0.2 (0.2-1.2) % PT 11.8 H (9.6-11.4) SEC INR 1.1 L (2.0-3.5) POC ABG pH (7.35-7.45) POC ABG pCO2 (35-45) mmHG POC ABG pO2 (80-105) mmHG POC ABG HCO3 (22-26) mmol/L POC ABG Total CO2 (23-27) mmol/L POC ABG O2 Sat (95-98) % POC ABG Base Excess (-2-3) mmol/L POC FiO2 Sodium 133 L (136-145) mmol/L Potassium 4.2 (3.5-5.1) mmol/L Chloride 98 (98-107) mmol/L Carbon Dioxide 26 (21-32) mmol/L Anion Gap 13.2 (10-20) mmol/L BUN 18 (7-18) mg/dL Creatinine 0.9 (0.55-1.02) mg/dL Est Cr Clr Drug Dosing 34.16 mL/min Estimated GFR (MDRD) > 60 Glucose 79 (74-106) mg/dL Lactic Acid (0.4-2.0) mmol/L Calcium 8.6 (8.5-10.1) mg/dL Corrected Calcium 9.96 (8.5-10.1) mg/dL Phosphorus 2.7 (2.6-4.7) mg/dL Magnesium 1.7 L (1.8-2.4) mg/dL Total Bilirubin 0.4 (0.2-1.0) mg/dL AST 27 (15-37) U/L ALT 23 (14-59) U/L Alkaline Phosphatase 102 (46-116) U/L C-Reactive Protein 30.5 H (<=0.9) mg/dL NT-Pro-B Natriuret Pep 437 H (<=125) pg/mL Total Protein 6.6 (6.4-8.2) g/dL Albumin 2.3 L (3.4-5.0) g/dL Globulin 4.3 Albumin/Globulin Ratio 0.53 Amylase 67 (25-115) U/L 02/19/18 02/19/18 Range/Units 16:00 16:49 WBC (4.0-10.0) x10^3/uL RBC (4.00-5.50) x10^6/uL Hgb (12.0-16.0) g/dL Hct (33.0-47.0) % MCV (78.0-93.0) fL MCH (26.0-32.0) pg MCHC (32.0-36.0) g/dL RDW Coeff of Cornelius (10.0-15.0) % Plt Count (130-400) x10^3/uL Neut % (Auto) (50.0-80.0) % Lymph % (Auto) (25.0-50.0) % Tyler % (Auto) (2.0-11.0) % Eos % (Auto) (0.0-4.0) % Baso % (Auto) (0.2-1.2) % PT (9.6-11.4) SEC INR (2.0-3.5) POC ABG pH 7.509 H (7.35-7.45) POC ABG pCO2 27 L (35-45) mmHG POC ABG pO2 65 L (80-105) mmHG POC ABG HCO3 22 (22-26) mmol/L POC ABG Total CO2 22 L (23-27) mmol/L POC ABG O2 Sat 95 (95-98) % POC ABG Base Excess -1 (-2-3) mmol/L POC FiO2 0.21 Sodium (136-145) mmol/L Potassium (3.5-5.1) mmol/L Chloride (98-107) mmol/L Carbon Dioxide (21-32) mmol/L Anion Gap (10-20) mmol/L BUN (7-18) mg/dL Creatinine (0.55-1.02) mg/dL Est Cr Clr Drug Dosing mL/min Estimated GFR (MDRD) Glucose (74-106) mg/dL Lactic Acid 1.5 (0.4-2.0) mmol/L Calcium (8.5-10.1) mg/dL Corrected Calcium (8.5-10.1) mg/dL Phosphorus (2.6-4.7) mg/dL Magnesium (1.8-2.4) mg/dL Total Bilirubin (0.2-1.0) mg/dL AST (15-37) U/L ALT (14-59) U/L Alkaline Phosphatase (46-116) U/L C-Reactive Protein (<=0.9) mg/dL NT-Pro-B Natriuret Pep (<=125) pg/mL Total Protein (6.4-8.2) g/dL Albumin (3.4-5.0) g/dL Globulin Albumin/Globulin Ratio Amylase (25-115) U/L Meds: Medications Generic Name Dose Route Start Last Admin Trade Name Freq PRN Reason Stop Dose Admin Acetaminophen 325 mg 02/19/18 17:45 Tylenol PO Q4H PRN Pain Albuterol/Ipratropium 3 ml 02/19/18 17:42 Duoneb 3.0-0.5 Mg/3 Ml NEB Q4HRRT PRN Cough Albuterol/Ipratropium 3 ml 02/19/18 23:00 Duoneb 3.0-0.5 Mg/3 Ml NEB Q8HRRT [facility] Aspirin 162 mg 02/20/18 08:00 Halfprin PO DAILY [facility] Azithromycin 500 mg 02/20/18 08:00 Zithromax PO DAILY [facility] Diltiazem HCl 30 mg 02/19/18 20:00 02/19/18 20:17 Cardizem PO 30 mg TID [facility] Administration Enoxaparin Sodium 30 mg 02/19/18 20:00 02/19/18 20:17 Lovenox SUBCUT 30 mg Q24H [facility] Administration Famotidine 10 mg 02/19/18 20:00 02/19/18 20:19 Pepcid PO 10 mg BID [facility] Administration Gabapentin 300 mg 02/19/18 20:00 02/19/18 20:17 Neurontin PO 300 mg TID [facility] Administration Lactated Ringer's 1,000 mls @ 100 mls/hr 02/19/18 17:45 02/19/18 18:44 Ringers, Lactated IV 02/20/18 03:44 100 mls/hr ASDIRECTED [facility] Administration Piperacillin Sod/Tazobactam 100 mls @ 25 mls/hr 02/20/18 06:00 Sod 3.375 gm/ Sodium Chloride IV Q8H [facility] Magnesium Oxide 400 mg 02/19/18 17:45 02/19/18 20:17 Magnesium Oxide PO 400 mg BID [facility] Administration Methylprednisolone Sodium Succinate 40 mg 02/19/18 19:00 02/19/18 18:43 Solu-Medrol IVPUSH 40 mg Q12H [facility] Administration Promethazine HCl 25 mg 02/19/18 22:46 Phenergan PO Q6H PRN Nausea/Vomiting Simvastatin 10 mg 02/20/18 08:00 Zocor PO DAILY [facility] Sodium Chloride 10 ml 02/19/18 15:45 Saline Flush FLUSH ASDIRECTED PRN Keep Vein Open Discontinued Medications Generic Name Dose Route Start Last Admin Trade Name Freq PRN Reason Stop Dose Admin Ceftriaxone Sodium 2 gm 02/19/18 15:56 02/19/18 16:10 Rocephin IVPUSH 02/19/18 15:57 2 gm STAT ONE Administration Azithromycin 500 mg/ Sodium 250 mls @ 250 mls/hr 02/19/18 17:09 02/19/18 18: 42 Chloride IV 02/19/18 18:08 250 mls/hr ONETIME ONE Administration Vancomycin HCl 1 gm/ Sodium 250 mls @ 250 mls/hr 02/19/18 17:11 02/19/18 17: 39 Chloride IV 02/19/18 18:10 250 mls/hr STAT ONE Administration Piperacillin Sod/Tazobactam 100 mls @ 200 mls/hr 02/19/18 22:00 Sod 4.5 gm/ Sodium Chloride IV 02/19/18 22:29 ONETIME ONE - Radiology Interpretation Free Text/Narrative:: CXR shows L lower lobe infiltrate. - Re-Assessments/Exams Free Text/Narrative Re-Assessment/Exam: Pt. was assessed and found to have O2 sat in the high 80s in room air. She was given IV rocephin 2gm, Azithromycin 500mg IV, and vancomycin 1 gm IV. She remained stable in the ER. Departure - Departure Time of Disposition: 16:30 Disposition: Admitted As Inpatient 64 Clinical Impression: CAP (community acquired pneumonia) - Discharge Information - My Orders Last 24 Hours: My Active Orders 02/19/18 15:45 Oxygen Therapy [RC] PRN Chest 1V Frontal [CR] Stat UA W/MICROSCOPIC [URIN] Stat Sodium Chloride 0.9% [Saline Flush] 10 ml FLUSH ASDIRECTED PRN 02/19/18 15:46 Blood Culture x2 Reflex Set [OM.PC] Stat Peripheral IV Insertion Adult [OM.PC] Routine 02/19/18 16:00 CULTURE BLOOD [BC] Stat 02/19/18 16:09 CULTURE BLOOD [BC] Stat - Assessment/Plan Last 24 Hours: My Active Orders 02/19/18 15:45 Oxygen Therapy [RC] PRN Chest 1V Frontal [CR] Stat UA W/MICROSCOPIC [URIN] Stat Sodium Chloride 0.9% [Saline Flush] 10 ml FLUSH ASDIRECTED PRN 02/19/18 15:46 Blood Culture x2 Reflex Set [OM.PC] Stat Peripheral IV Insertion Adult [OM.PC] Routine 02/19/18 16:00 CULTURE BLOOD [BC] Stat 02/19/18 16:09 CULTURE BLOOD [BC] Stat
[2018-02-19] MEDS: Albuterol/Ipratropium 3.0-0.5 MG/3 ML Neb Soln NEB SCH (23:21)
--- NOTE | 2018-02-20 04:34 | HP ---
HISTORY OF PRESENT ILLNESS: A 72-year-old seen today for shortness of breath. The patient was actually coming in the clinic to try to qualify for oxygen. She had been in on 01/24 to the ER and treated with IV Rocephin and later Zithromax for a community-acquired pneumonia. She actually followed up in the clinic with Dr. Bill Basurto and has already had a pulmonary consult including fungal labs and CT scans regarding her infiltrates on the left upper lobe as well as left lower lung. 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 Because of this, she is not on any infusions for her rheumatoid arthritis. She had actually been doing quite well up until the past month or so. She has had trouble with losing weight in the past. She has had trouble with COPD. She was on Spiriva. We tried Anoro, but her insurance would not cover it. Today, she actually presented to the clinic with 101 fever and was tachycardic, so was sent to the ER for sepsis workup. She states she has been coughing some but can't get anything up. She has been doing a lot of wheezing and has felt short of breath. No chest pain. No nausea, vomiting, diarrhea. She is on prednisone chronically 10 mg daily. She is not feeling lightheaded or dizzy. ALLERGIES: Include Demerol, hydrocodone, tramadol, and most of them just make her feel nauseated and ill. MEDICATIONS: Her medication list is currently reviewed, which does include Tylenol as needed, Prolia every 6 months, last given on 08/27, potassium 10 mEq twice daily, Spiriva, Arava 10 mg daily, Zocor 10 mg daily, Neurontin 300 mg 3 times a day, Breo daily, Cardizem 30 mg 3 times a day, sulfasalazine 1500 twice a day, prednisone 5 mg daily, Plaquenil 200 mg 2 times a day, iron 324 daily, aspirin 325 one-half pill daily, ProAir as needed, calcium 1000 mg daily, vitamin D 1000 daily, cimetidine 1 twice a day. PAST MEDICAL HISTORY: Includes rheumatoid arthritis, seropositive multiple sites, MAC, pneumonia 2008 with cavitary abscess and left upper lobe bilateral emphysematous changes and left thoracotomy and upper lobectomy. Otherwise, she has had chronic weight loss, previous gallstone pancreatitis in , paroxysmal ventricular tachycardia with then PACs later seen by Cardiology in the past, history of stroke incidentally on MRI when admitted for TIA, but the symptoms did not correlate, radicular leg pain, left shoulder pain, steroid-induced osteoporosis, mitral stenosis mild in 2017, MGUS and chronic anemia, hemoglobin around 9 to 10. She has been seen by Hematology. COPD, severe. PFTs in 2010 showed an FEV1 of 47% or about 1.09. PAST SURGICAL HISTORY: Surgically, the patient has had that lung resection as listed above. She has had a tubal ligation, tonsillectomy, vein stripping, vocal cord surgery, earlobe surgery, nasal sinus endoscopy with polypectomy, fusion of the metatarsophalangeals, left first metatarsal. Eye surgery which was cataracts, cholecystectomy. SOCIAL HISTORY: Socially, she is . She lives at home with her . He actually has lung cancer. They live in [facility]. She is actually disabled from drug plastics due to arthritis. She has 2 children, a girl and a boy. She does not currently smoke, has not for many, many years. No alcohol use. FAMILY HISTORY: The patient's mother had asthma and COPD. Her father had arthritis. Both are . REVIEW OF SYSTEMS: General: The patient has felt chilled yesterday. Feverish now today. She is down about 8 pounds since August of this year. She has felt a little fatigued, though. HEENT: No trouble swallowing. No sore throat. Cardiac: No chest pain. She does not feel any palpitations. Respiratory: As stated in the HPI. GI: Negative as stated in the HPI. : No dysuria. Musculoskeletal: She has no new joint aches or pain. She has chronic rheumatoid arthritis pain. Otherwise, all systems reviewed and found to be negative unless otherwise stated. PHYSICAL EXAMINATION: VITAL SIGNS: The patient was seen at the hospital. Her temperature on my exam was 98.2. Her weight was 38.1 kg. T-max at the hospital was 100.4, her pulse was 114, blood pressure 103/72, respiratory rate 24, O2 was 95 on 2 L. She is about 90% on room air. General: She is in no acute distress. Heart: Regular rate and rhythm with murmur. Lungs: Sounds do show decreased air entry with adventitious sounds with rhonchi and wheezing, especially over the left base but also noted over the right base and right upper lung. Abdomen: Nontender, nondistended. Positive bowel sounds. Extremities: Warm and dry. No edema. She does have chronic RA changes. Mental Status: She is alert and orientated x3. Skin: She is mildly pale. DIAGNOSTIC STUDIES: Her EKG shows sinus tach. LABORATORY DATA: Lab work shows white count 12.6, hemoglobin 9.3, platelets 467. INR 1.1. ABG is 7.5, pCO2 of 27, PO2 of 65. Sodium 133, potassium 4.2, chloride 98, bicarb 26, BUN 18, creatinine 0.9, glucose 79, magnesium 1.7, CRP 30.5, ProBNP 437, albumin 2.3, amylase 67. ASSESSMENT AND PLAN: 1. Sepsis secondary to community-acquired pneumonia. She has had some chronic pneumonia findings over the last month, but this is more acute now with fever and chills. Blood cultures have already been sent. We have ordered a sputum culture. Given her recent antibiotic treatment, we will cover her with IV vancomycin. She has already seeing received Rocephin and Zithromax in the ER. 2. Community-acquired left lower lobe pneumonia. She is already being worked up for atypical infections outpatient but this is more of an acute presentation. Bronchoscopy is scheduled for next month. 3. Chronic obstructive pulmonary disease, severe with exacerbation due to pneumonia. We will start her on Solu-Medrol 40 mg IV q.12 hours. We will start her on scheduled and p.r.n. nebs. We will repeat lab work in the morning. 4. Sinus tachycardia. The patient has a history of this. We will monitor with telemetry. We will continue her on Cardizem. 5. Rheumatoid arthritis, severe due to infection. We are going to hold all her rheumatoid arthritis medications. 6. Hypomagnesemia. We will replace orally. 7. Moderate malnutrition with thinness and albumin 2.3. We will encourage p.o. intake. PLAN: At this point, the patient is admitted for acute cares. We will give her IV fluids, IV antibiotics with vancomycin and I will also give her Zosyn. We will repeat lab work in the morning. We will continue on oxygen. We will monitor with telemetry. We will continue IV steroids and DuoNebs. Discussed with the patient and her family. She is a code level 1. Lovenox for DVT prophylaxis. She does also have chronic anemia but her hemoglobin is actually near her baseline, probably anemia of chronic disease. MKA: 02/19/2018 21:58:51 MODL: 02/20/2018 04:27:21 /[id number]
[2018-02-20] MEDS: methylPREDNISolone Sodium Succinate 40 MG/1 ML SDV IVPUSH SCH ×3 (05:53→20:15)
[2018-02-20] MEDS: Piperacillin/Tazobactam 3.375 GM in Sodium Chloride 0.9% 100 ML IV SCH ×4 (05:53→21:37)
[2018-02-20] MEDS: Albuterol/Ipratropium 3.0-0.5 MG/3 ML Neb Soln NEB SCH ×3 (07:01→22:09)
[2018-02-20 07:08] LABS: ANION GAP 15.6 mmol/L (10-20)
[2018-02-20] MEDS: Diltiazem IR 30 MG Tab PO SCH ×3 (08:02→20:15)
[2018-02-20] MEDS: Famotidine 20 MG Tab PO SCH ×2 (08:02→20:15)
[2018-02-20] MEDS: Aspirin 81 MG Tab.EC PO SCH (08:02)
[2018-02-20] MEDS: Magnesium Oxide 400 MG Tab PO SCH ×2 (08:02→20:15)
[2018-02-20] MEDS: Gabapentin 300 MG Cap PO SCH ×3 (08:03→20:15)
[2018-02-20] MEDS: Azithromycin 250 MG Tab PO SCH (08:03)
[2018-02-20] MEDS: Simvastatin 20 MG Tab PO SCH (08:03)
--- NOTE | 2018-02-20 13:04 | PN ---
Progress Note for MIRIAM PALACIOS Date: 02/20/2018 Room #: VM.214 SUBJECTIVE: Hospital day #2 on a 72-year-old admitted yesterday for pneumonia, left lower lobe. The patient has had a history of MAC back in 2008, treated with surgery and pyrazinamide, ethambutol, isoniazid, and rifampin. I discussed with Infectious Disease, they did not feel that MAC would cause this acute presentation. She has been started on IV vancomycin and Zosyn, now day #2 given that she was on Rocephin and Zithromax earlier this month. She has now been afebrile since admission. Her cough and wheezing are better. She is overall improved. Telemetry showed no events. She is not coughing up much sputum. She was getting nebulizers, which she does not have available at home. Oxygen saturations have been high 90s on 1 and 2 L. Otherwise, she has not had any pain. OBJECTIVE: VITAL SIGNS: Her temperature 97.4, pulse 97, blood pressure 92/57, respiratory rate 20, O2 of 98 on 1 L. GENERAL: She is in no acute distress. HEART: Regular rate and rhythm with murmur. LUNGS: Sounds are clear to auscultation bilaterally. No crackles or wheezes appreciated on exam currently. ABDOMEN: Nondistended, nontender. EXTREMITIES: Warm and dry. No edema. MENTAL STATUS: Alert and orientated x3. LABORATORY DATA: White count normal at 9.7, hemoglobin 9, platelets 463. Sodium 137, potassium 3.6, chloride 102, bicarb 23, BUN 19, creatinine 1, glucose 161, calcium 8.1, magnesium 2. ASSESSMENT AND PLAN: 1. Sepsis due to healthcare-associated pneumonia, given recent antibiotics. She is on vancomycin and Zosyn, now day #2. Anticipate that if her cultures are negative, she will go home to complete a 5-day course with Levaquin. She is also getting oral Zithromax, now day #2. 2. Healthcare-associated pneumonia, left lower lobe. She is immunosuppressed due to rheumatoid arthritis. Overall, improving. 3. Chronic obstructive pulmonary disease exacerbation with severe chronic obstructive pulmonary disease. She is on Spiriva at home. We are going to go ahead and order a nebulizer machine and some nebs for her in case she discharges home over the weekend. We will continue Solu-Medrol 40 IV q.12 hours. Plan to send her home on 40 mg daily for another 5 days. 4. Sinus tachycardia, improved. Telemetry has been discontinued. 5. Rheumatoid arthritis. Medications on hold due to acute infection. 6. Hypomagnesemia, replaced orally. 7. Moderate malnutrition. We will encourage p.o. intake. 8. Chronic anemia. PLAN: At this point, the patient will continue acute cares with IV vancomycin and Zosyn. We will await blood cultures. Sputum cultures have been ordered, but not obtained. We will continue IV steroids. We will continue DuoNebs. We will continue Lovenox for DVT prophylaxis. She does have chronic anemia, and we will repeat hemoglobin in the morning. MKA: 02/20/2018 12:13:51 MODL: 02/20/2018 12:39:48 /[id number]
[2018-02-20] MEDS: Enoxaparin 30 MG/0.3 ML Syringe SUBCUT SCH (20:15)
[2018-02-21] MEDS: Piperacillin/Tazobactam 3.375 GM in Sodium Chloride 0.9% 100 ML IV SCH ×3 (06:11→22:40)
[2018-02-21] MEDS: Albuterol/Ipratropium 3.0-0.5 MG/3 ML Neb Soln NEB SCH ×3 (06:14→22:43)
[2018-02-21] MEDS: methylPREDNISolone Sodium Succinate 40 MG/1 ML SDV IVPUSH SCH (06:15)
[2018-02-21] MEDS: Azithromycin 250 MG Tab PO SCH (07:41)
[2018-02-21] MEDS: Simvastatin 20 MG Tab PO SCH (07:41)
[2018-02-21] MEDS: Diltiazem IR 30 MG Tab PO SCH ×3 (07:41→20:19)
[2018-02-21] MEDS: Gabapentin 300 MG Cap PO SCH ×3 (07:41→20:18)
[2018-02-21] MEDS: Magnesium Oxide 400 MG Tab PO SCH ×2 (07:41→20:19)
[2018-02-21] MEDS: Aspirin 81 MG Tab.EC PO SCH (07:41)
[2018-02-21] MEDS: Famotidine 20 MG Tab PO SCH ×2 (07:42→20:18)
[2018-02-21 08:35] LABS: CHLORIDE,CL 106 mmol/L (98-107); SODIUM,NA 142 mmol/L (136-145)
[2018-02-21 08:36] LABS: ANION GAP 12.9 mmol/L (10-20)
--- NOTE | 2018-02-21 12:32 | PCM.PN ---
- General Info Date of Service: 02/21/18 Admission Dx/Problem (Free Text): S: Pt feels much rachid, w/o SOB or coughing - Review of Systems Skin: Reports: Other (reports sore between 3rd and 4th toes right foot present for several weeks) - Patient Data Vitals - Most Recent: Last Vital Signs Temp 98.2 F 02/21/18 10:33 Pulse 84 02/21/18 10:33 Resp 16 02/21/18 10:33 BP 84/55 L 02/21/18 10:33 Pulse Ox 96 02/21/18 10:33 Weight - Most Recent: 84 lb I&O - Last 24 Hours: Intake & Output 02/20/18 02/21/18 02/21/18 22:59 06:59 14:59 Intake Total 280 600 350 Output Total 200 700 Balance 80 -100 350 Lab Results Last 24 Hours: Laboratory Results - last 24 hr 02/20/18 02/21/18 02/21/18 Range/Units 17:25 07:55 07:55 WBC 18.3 H (4.0-10.0) x10^3/uL RBC 2.85 L (4.00-5.50) x10^6/uL Hgb 8.0 L (12.0-16.0) g/dL Hct 26.2 L (33.0-47.0) % MCV 91.9 (78.0-93.0) fL MCH 28.1 (26.0-32.0) pg MCHC 30.5 L (32.0-36.0) g/dL RDW Coeff of Cornelius 13.6 (10.0-15.0) % Plt Count 464 H (130-400) x10^3/uL Neut % (Auto) 94.5 H (50.0-80.0) % Lymph % (Auto) 3.3 L (25.0-50.0) % Porter % (Auto) 2.1 (2.0-11.0) % Eos % (Auto) 0.0 (0.0-4.0) % Baso % (Auto) 0.1 L (0.2-1.2) % Sodium 142 (136-145) mmol/L Potassium 3.9 (3.5-5.1) mmol/L Chloride 106 (98-107) mmol/L Carbon Dioxide 27 (21-32) mmol/L Anion Gap 12.9 (10-20) mmol/L BUN 13 (7-18) mg/dL Creatinine 0.7 (0.55-1.02) mg/dL Est Cr Clr Drug Dosing 42.41 mL/min Estimated GFR (MDRD) > 60 Glucose 212 H (74-106) mg/dL Calcium 8.2 L (8.5-10.1) mg/dL Urine Color Yellow (YELLOW) Urine Appearance Clear (CLEAR) Urine pH 5.5 (5.0-8.0) Ur Specific [place] 1.015 Urine Protein Negative (NEGATIVE) mg/dL Urine Glucose (UA) 500 H (NEGATIVE) mg/dL Urine Ketones Negative (NEGATIVE) mg/dL Urine Occult Blood Negative (NEGATIVE) Urine Nitrite Negative (NEGATIVE) Urine Bilirubin Negative (NEGATIVE) Urine Urobilinogen 0.2 (0.2) EU/dL Ur Leukocyte Esterase Negative (NEGATIVE) Urine RBC 0-5 (NOT SEEN) /HPF Urine WBC 0-5 (NOT SEEN) /HPF Ur Squamous Epith Cells Rare (NEGATIVE) /HPF Urine Bacteria Not seen (NEGATIVE) /HPF Urine Mucus Rare H (NEGATIVE) /LPF Nixon Results Last 24 Hours: Microbiology 02/19/18 16:09 Aerobic Blood Culture - Preliminary Blood - Venous - Lab Draw NO GROWTH AFTER 1 DAY Anaerobic Blood Culture - Preliminary NO GROWTH AFTER 1 DAY 02/19/18 16:00 Aerobic Blood Culture - Preliminary Blood - Venous NO GROWTH AFTER 1 DAY Anaerobic Blood Culture - Preliminary NO GROWTH AFTER 1 DAY Med Orders - Current: Current Medications Acetaminophen (Tylenol) 325 mg PO Q4H PRN PRN Reason: Pain Albuterol/Ipratropium (Duoneb 3.0-0.5 Mg/3 Ml) 3 ml NEB Q4HRRT PRN PRN Reason: Cough Albuterol/Ipratropium (Duoneb 3.0-0.5 Mg/3 Ml) 3 ml NEB Q8HRRT [facility] Last Admin: 02/21/18 06:14 Dose: 3 ml Aspirin (Halfprin) 162 mg PO DAILY [facility] Last Admin: 02/21/18 07:41 Dose: 162 mg Azithromycin (Zithromax) 500 mg PO DAILY [facility] Last Admin: 02/21/18 07:41 Dose: 500 mg Diltiazem HCl (Cardizem) 30 mg PO TID [facility] Last Admin: 02/21/18 07:41 Dose: 30 mg Enoxaparin Sodium (Lovenox) 30 mg SUBCUT Q24H [facility] Last Admin: 02/20/18 20:15 Dose: 30 mg Famotidine (Pepcid) 10 mg PO BID [facility] Last Admin: 02/21/18 07:42 Dose: 10 mg Gabapentin (Neurontin) 300 mg PO TID [facility] Last Admin: 02/21/18 07:41 Dose: 300 mg Piperacillin Sod/Tazobactam (Sod 3.375 gm/ Sodium Chloride) 100 mls @ 25 mls/ hr IV Q8H [facility] Last Admin: 02/21/18 06:11 Dose: 25 mls/hr Magnesium Oxide (Magnesium Oxide) 400 mg PO BID [facility] Last Admin: 02/21/18 07:41 Dose: 400 mg Prednisone (Prednisone) 40 mg PO WITHBREAKFAST [facility] Promethazine HCl (Phenergan) 25 mg PO Q6H PRN PRN Reason: Nausea/Vomiting Simvastatin (Zocor) 10 mg PO DAILY [facility] Last Admin: 02/21/18 07:41 Dose: 10 mg Sodium Chloride (Saline Flush) 10 ml FLUSH ASDIRECTED PRN PRN Reason: Keep Vein Open Last Admin: 02/21/18 06:15 Dose: 10 ml Discontinued Medications Ceftriaxone Sodium (Rocephin) 2 gm IVPUSH STAT ONE Stop: 02/19/18 15:57 Last Admin: 02/19/18 16:10 Dose: 2 gm Azithromycin 500 mg/ Sodium (Chloride) 250 mls @ 250 mls/hr IV ONETIME ONE Stop: 02/19/18 18:08 Last Admin: 02/19/18 18:42 Dose: 250 mls/hr Vancomycin HCl 1 gm/ Sodium (Chloride) 250 mls @ 250 mls/hr IV STAT ONE Stop: 02/19/18 18:10 Last Admin: 02/19/18 17:39 Dose: 250 mls/hr Lactated Ringer's (Ringers, Lactated) 1,000 mls @ 100 mls/hr IV ASDIRECTED [facility] Stop: 02/20/18 03:44 Last Admin: 02/19/18 18:44 Dose: 100 mls/hr Piperacillin Sod/Tazobactam (Sod 4.5 gm/ Sodium Chloride) 100 mls @ 200 mls/hr IV ONETIME ONE Stop: 02/19/18 22:29 Last Admin: 02/19/18 23:21 Dose: 200 mls/hr Methylprednisolone Sodium Succinate (Solu-Medrol) 40 mg IVPUSH Q12H [facility] Last Admin: 02/21/18 06:15 Dose: 40 mg - Exam General: Alert Lungs: Rales Cardiovascular: Regular Rate GI/Abdominal Exam: Normal Bowel Sounds Extremities: Normal Range of Motion (tiny open sore in webspace between 3rd and 4 th toes right foot- skin macerated, no pus , redness or swelling seen), No Pedal Edema, Other Physical Findings Comments:: scattered rales upper lobes bilaterally, no wheezes - Problem List & Annotations (1) Hypomagnesemia SNOMED Code(s): 893927523 Code(s): E83.42 - HYPOMAGNESEMIA Status: Acute Priority: High Current Visit: Yes Annotation/Comment:: resolved (2) Pneumonia SNOMED Code(s): 804444865 Code(s): J18.9 - PNEUMONIA, UNSPECIFIED ORGANISM Status: Acute Current Visit: Yes Qualifiers: Pneumonia type: due to unspecified organism Laterality: right Lung location: upper lobe of lung Qualified Code(s): J18.1 - Lobar pneumonia, unspecified organism Annotation/Comment:: Pt feels much improved, will continue IV antibiotics until issue of elevated WBC clarified;likely from iv steroids; check cxr today (3) Anemia SNOMED Code(s): 729690004 Code(s): D64.9 - ANEMIA, UNSPECIFIED Status: Acute Current Visit: Yes Annotation/Comment:: Previous note indicates RA and MGUS as caseu for anemia with hb 0f 9-10, has slipped to 8 todaym will stool for blood, maybe dilutional (4) COPD exacerbation SNOMED Code(s): 317801778860402 Code(s): J44.1 - CHRONIC OBSTRUCTIVE PULMONARY DISEASE W (ACUTE) EXACERBATION Status: Acute Current Visit: No Annotation/Comment:: feels breathing is much better, will dc I v steroid, switch to po prednisone with fast taper if possible as she already has osteoporosis. (5) Blood glucose elevated SNOMED Code(s): 63000769 Code(s): R73.9 - HYPERGLYCEMIA, UNSPECIFIED Status: Acute Current Visit: Yes Annotation/Comment:: likel related to iv steroids- will check glu qid (6) Ulcer SNOMED Code(s): 816893264 Code(s): OVX9503 - Status: Acute Current Visit: Yes Annotation/Comment :: looks like a pressure ulcer in web space,it does not appear to be infected clinically; pt requested a culture and this has been done. Will keep toes to allow ulcer to dry and heal; Pt has appt with podiatry in March 10 and at that time, surrounding corn can be debrided. - Problem List Review Problem List Initiated/Reviewed/Updated: Yes - My Orders Last 24 Hours: My Active Orders 02/21/18 10:30 CULTURE WOUND [RM] Routine 02/21/18 10:40 Communication Order [RC] 08,20 02/21/18 12:21 POC Glucose [Blood Glucose Check, Bedside] [RC] QIDACANDBED 02/21/18 12:25 Fecal Occult Bld Diag Imm [RC] ASDIRECTED 02/22/18 05:11 CBC WITH MANUAL DIFF [HEME] Routine 02/22/18 08:00 predniSONE 40 mg PO WITHBREAKFAST
[2018-02-21] MEDS: Enoxaparin 30 MG/0.3 ML Syringe SUBCUT SCH (20:19)
[2018-02-22] MEDS: Albuterol/Ipratropium 3.0-0.5 MG/3 ML Neb Soln NEB SCH ×2 (06:37→15:11)
[2018-02-22] MEDS: Piperacillin/Tazobactam 3.375 GM in Sodium Chloride 0.9% 100 ML IV SCH ×2 (06:38→17:00)
[2018-02-22] MEDS: Famotidine 20 MG Tab PO SCH (07:42)
[2018-02-22] MEDS: Aspirin 81 MG Tab.EC PO SCH (07:42)
[2018-02-22] MEDS: Diltiazem IR 30 MG Tab PO SCH ×2 (07:42→11:35)
[2018-02-22] MEDS: Magnesium Oxide 400 MG Tab PO SCH (07:42)
[2018-02-22] MEDS: Simvastatin 20 MG Tab PO SCH (07:42)
[2018-02-22] MEDS: Azithromycin 250 MG Tab PO SCH (07:43)
[2018-02-22] MEDS: Gabapentin 300 MG Cap PO SCH ×2 (07:43→11:35)
[2018-02-22] MEDS ORDERED: predniSONE 20 MG Tab PO SCH (08:00)
[2018-02-22 14:33] VITALS: BP 93/58
--- NOTE | 2018-02-22 16:30 | PCM.PN ---
- General Info Date of Service: 02/22/18 Subjective Update: Pt feels well, is anxious to go home. No SOB or coughing - Patient Data Vitals - Most Recent: Last Vital Signs Temp 97.1 F 02/22/18 14:00 Pulse 68 02/22/18 14:00 Resp 20 02/22/18 14:00 BP 93/58 L 02/22/18 14:00 Pulse Ox 97 02/22/18 14:00 Weight - Most Recent: 84 lb I&O - Last 24 Hours: Intake & Output 02/22/18 02/22/18 02/22/18 06:59 14:59 22:59 Intake Total 450 700 Output Total 650 Balance -200 700 Lab Results Last 24 Hours: Laboratory Results - last 24 hr 02/21/18 02/21/18 02/22/18 Range/Units 16:55 20:15 06:36 WBC (4.0-10.0) x10^3/uL RBC (4.00-5.50) x10^6/uL Hgb (12.0-16.0) g/dL Hct (33.0-47.0) % MCV (78.0-93.0) fL MCH (26.0-32.0) pg MCHC (32.0-36.0) g/dL RDW Coeff of Cornelius (10.0-15.0) % Plt Count (130-400) x10^3/uL Neutrophils % (Manual) (50-80) % Band Neutrophils % (0-6) % Lymphocytes % (Manual) (25-50) % Monocytes % (Manual) (2-11) % Platelet Estimate Hypochromasia POC Glucose 249 H 325 H 107 H (74-106) mg/dL 02/22/18 Range/Units 08:43 WBC 15.5 H (4.0-10.0) x10^3/uL RBC 2.86 L (4.00-5.50) x10^6/uL Hgb 8.0 L (12.0-16.0) g/dL Hct 26.8 L (33.0-47.0) % MCV 93.7 H (78.0-93.0) fL MCH 28.0 (26.0-32.0) pg MCHC 29.9 L (32.0-36.0) g/dL RDW Coeff of Cornelius 13.9 (10.0-15.0) % Plt Count 497 H (130-400) x10^3/uL Neutrophils % (Manual) 89 H (50-80) % Band Neutrophils % 3 (0-6) % Lymphocytes % (Manual) 5 L (25-50) % Monocytes % (Manual) 3 (2-11) % Platelet Estimate Increased H Hypochromasia 2+ moderate H POC Glucose (74-106) mg/dL Nixon Results Last 24 Hours: Microbiology 02/21/18 10:30 Wound Culture - Preliminary Toe, Right - Right Fourth Staphylococcus Coagulase Neg 02/19/18 16:09 Aerobic Blood Culture - Preliminary Blood - Venous - Lab Draw NO GROWTH AFTER 2 DAYS Anaerobic Blood Culture - Preliminary NO GROWTH AFTER 2 DAYS 02/19/18 16:00 Aerobic Blood Culture - Preliminary Blood - Venous NO GROWTH AFTER 2 DAYS Anaerobic Blood Culture - Preliminary NO GROWTH AFTER 2 DAYS Med Orders - Current: Current Medications Acetaminophen (Tylenol) 325 mg PO Q4H PRN PRN Reason: Pain Albuterol/Ipratropium (Duoneb 3.0-0.5 Mg/3 Ml) 3 ml NEB Q4HRRT PRN PRN Reason: Cough Albuterol/Ipratropium (Duoneb 3.0-0.5 Mg/3 Ml) 3 ml NEB Q8HRRT [facility] Last Admin: 02/22/18 15:11 Dose: 3 ml Aspirin (Halfprin) 162 mg PO DAILY [facility] Last Admin: 02/22/18 07:42 Dose: 162 mg Azithromycin (Zithromax) 500 mg PO DAILY [facility] Last Admin: 02/22/18 07:43 Dose: 500 mg Diltiazem HCl (Cardizem) 30 mg PO TID [facility] Last Admin: 02/22/18 11:35 Dose: 30 mg Enoxaparin Sodium (Lovenox) 30 mg SUBCUT Q24H [facility] Last Admin: 02/21/18 20:19 Dose: 30 mg Famotidine (Pepcid) 10 mg PO BID [facility] Last Admin: 02/22/18 07:42 Dose: 10 mg Gabapentin (Neurontin) 300 mg PO TID [facility] Last Admin: 02/22/18 11:35 Dose: 300 mg Piperacillin Sod/Tazobactam (Sod 3.375 gm/ Sodium Chloride) 100 mls @ 25 mls/ hr IV Q8H [facility] Last Admin: 02/22/18 06:38 Dose: 25 mls/hr Magnesium Oxide (Magnesium Oxide) 400 mg PO BID [facility] Last Admin: 02/22/18 07:42 Dose: 400 mg Prednisone (Prednisone) 40 mg PO WITHBREAKFAST [facility] Last Admin: 02/22/18 07:42 Dose: 40 mg Promethazine HCl (Phenergan) 25 mg PO Q6H PRN PRN Reason: Nausea/Vomiting Simvastatin (Zocor) 10 mg PO DAILY [facility] Last Admin: 02/22/18 07:42 Dose: 10 mg Sodium Chloride (Saline Flush) 10 ml FLUSH ASDIRECTED PRN PRN Reason: Keep Vein Open Last Admin: 02/21/18 06:15 Dose: 10 ml Discontinued Medications Ceftriaxone Sodium (Rocephin) 2 gm IVPUSH STAT ONE Stop: 02/19/18 15:57 Last Admin: 02/19/18 16:10 Dose: 2 gm Azithromycin 500 mg/ Sodium (Chloride) 250 mls @ 250 mls/hr IV ONETIME ONE Stop: 02/19/18 18:08 Last Admin: 02/19/18 18:42 Dose: 250 mls/hr Vancomycin HCl 1 gm/ Sodium (Chloride) 250 mls @ 250 mls/hr IV STAT ONE Stop: 02/19/18 18:10 Last Admin: 02/19/18 17:39 Dose: 250 mls/hr Lactated Ringer's (Ringers, Lactated) 1,000 mls @ 100 mls/hr IV ASDIRECTED [facility] Stop: 02/20/18 03:44 Last Admin: 02/19/18 18:44 Dose: 100 mls/hr Piperacillin Sod/Tazobactam (Sod 4.5 gm/ Sodium Chloride) 100 mls @ 200 mls/hr IV ONETIME ONE Stop: 02/19/18 22:29 Last Admin: 02/19/18 23:21 Dose: 200 mls/hr Methylprednisolone Sodium Succinate (Solu-Medrol) 40 mg IVPUSH Q12H [facility] Last Admin: 02/21/18 06:15 Dose: 40 mg - Exam General: Alert, Oriented Lungs: Clear to Auscultation Cardiovascular: Regular Rate, Regular Rhythm - Problem List & Annotations (1) Hypomagnesemia SNOMED Code(s): 256020577 Code(s): E83.42 - HYPOMAGNESEMIA Status: Acute Priority: High Current Visit: Yes Annotation/Comment:: resolved (2) Pneumonia SNOMED Code(s): 704008514 Code(s): J18.9 - PNEUMONIA, UNSPECIFIED ORGANISM Status: Acute Current Visit: Yes Qualifiers: Pneumonia type: due to unspecified organism Laterality: right Lung location: upper lobe of lung Qualified Code(s): J18.1 - Lobar pneumonia, unspecified organism Annotation/Comment:: Pt' s Wbc are improved with decrease in steroids, pt afebrile.CXR 02/21 stable compared with 02/19- volume loss of left, bullous disease, surigical changes left. Switch to po. Pt walking w/o any sob (3) Anemia SNOMED Code(s): 164995102 Code(s): D64.9 - ANEMIA, UNSPECIFIED Status: Acute Current Visit: Yes Annotation/Comment:: is stable from yesterday with hb 8. Pt had a similar hb in 2016 when she came in for a respiratory infection. Pt had a negative stool for blood on rectal exam today. She is already taking iron and this drop in hb may be a reaction to acute inflammaotry process on top of chronic diseases of RA and MGUS. If hb stable this afternoon will consider discharge with close f/up in clinic. Iron studies ordered (4) COPD exacerbation SNOMED Code(s): 818934151735100 Code(s): J44.1 - CHRONIC OBSTRUCTIVE PULMONARY DISEASE W (ACUTE) EXACERBATION Status: Acute Current Visit: No Annotation/Comment:: feels breathing is much better, will dc I v steroid, switch to po prednisone with fast taper if possible as she already has osteoporosis. (5) Blood glucose elevated SNOMED Code(s): 91256744 Code(s): R73.9 - HYPERGLYCEMIA, UNSPECIFIED Status: Acute Current Visit: Yes Annotation/Comment:: likel related to iv steroids- FBS this AM 107 (6) Ulcer SNOMED Code(s): 300746571 Code(s): QYO4147 - Status: Acute Current Visit: Yes Annotation/Comment :: grew out st epi, no pus seen, keep pressure off; f/up in 3 weeks with podiatry - Problem List Review Problem List Initiated/Reviewed/Updated: Yes - My Orders Last 24 Hours: My Active Orders 02/22/18 08:00 predniSONE 40 mg PO WITHBREAKFAST 02/22/18 16:12 CBC W/O DIFF,HEMOGRAM [HEME] Urgent IRON & TIBC [REF] Routine
--- NOTE | 2018-02-22 19:15 | PCM.DCSUM1 ---
Discharge Summary - Hospital Course Free Text/Narrative:: Discharge summary Patient was admitted with temperature 100.4, wheezing and shortness of breath .She was thought to have a left lower lobe community-acquired pneumonia exacerbating COPD. She was found also to be hypomagnesemic. Pt had been been treated with Azithromycin and Rocephin in the recent past so she was first on vancomycin and Zofran and then Zofran and azithromycin. She was given IV steroids.The patient improved after 24 hours with less wheezing; vancomycin discontinued after 2 days. No sputum was obtained for culture and blood cultures were negative and she was maintained on Zosyn and azithromycin .Patient 's white count was 12,600 on admission and went to 18,000 hours after starting the IV steroids. This was switched to prednisone 40mg and her white count dropped to 12.900 at time of discharge. Hemoglobin on admission at 9.3 and it dropped to 8 and then 8.2 on the day of discharge. Stool is were negative for blood 1 was thought that this was probably an acute reaction to her illness superimposed on her chronic anemia from rheumatoid arthritis and MGUS. Patient had had a similar hemoglobin drop np1301 when ill with another respiratory illness. She had a magnesium 1.7 and with Mag-Ox twice a day her magnesium next checked was 2.0. Patient had hyperglycemia while on IV steroids with blood sugars ranging between 212 and 351. When switched to 40 mg prednisone, her fasting blood sugar was 107. At the time of discharge her lungs were clear she was walking rapidly in the hallway; shee had no GI complaints, urinary problems and her breathing was good. Gale pointed out a small ulcer in the webspace between the 3rd and 4th toes of her right foot.The culture and grew out only staph epi she was advised to keep the ulcer exposed to air. No redness, warmth or swelling was seen at the tiny ulcer or the macerated skin surrounding it. A corn surrounding it will be addressed by her glassware finisher Dr. Nii Seals in about 3 weeks Discharge diagnoses 1. Left lower lobe pneumonia: Patient will finish out Augmentin 375 twice a day for another 3 days and then also finish out one more day on a azithromycin 2. COPD: Patient has been on prednisone 40 mg daily for the last 2 days she'll be on a tapering dose 30?30?20?20?10?10 and then resume her 5 mg a day. She has a membership at home if she continues albuterol plus Atrovent every 8 hours 3. 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 Anemia: Patient will continue on her iron although her iron studies suggest anemia of chronic disease. She is to follow-up with Dr. Nance later on this week with repeat CBC 5. Foot ulcer: She will follow-up with glassware finisher but in the meantime she is to keep the pressure off the ulcer . Discharge medications: Tylenol 325 every 4 when necessary pain Duo nebs every 8 hous Halfprin daily Cimetidine 200 twice a day Diltiazem 30 3 times a day Gabapentin 300 3 times a day Mag-Ox 400 twice a day Prednisone in a tapering dose starting at 30 mg a day Simvastatin 20 mg a day Albuterol inhaler when not able to access them machine every 4 when necessary Calcium carbonate 1000 daily Vitamin D3 1000 daily Prolia as per scheduled Iron 324 day Plaquenil 200 twice a day N Gauri inhaler 1 puff daily 8 azithromycin 500 mg once a morning Augmentin 875 twice a day for 3 days Patient is to have her echocardiogram in the morning at [facility] She is encouraged to see Dr. Annabel Seals on the next day in follow-up of her echo and also get a CBC Diet. Healthy heart as tolerated Activity as tolerated Diagnosis: Stroke: No - Discharge Data Discharge Date: 02/22/18 Discharge Disposition: Home, Self-Care 01 Condition: Good - Discharge Diagnosis/Problem(s) (1) Hypomagnesemia SNOMED Code(s): 375260651 ICD Code: E83.42 - HYPOMAGNESEMIA Status: Acute Priority: High Problem Details: resolved (2) Pneumonia SNOMED Code(s): 854792846 ICD Code: J18.9 - PNEUMONIA, UNSPECIFIED ORGANISM Status: Acute Problem Details: Pt' s Wbc are improved with decrease in steroids, pt afebrile.CXR 02/21 stable compared with 02/19- volume loss of left, bullous disease, surigical changes left. Switch to po. Pt walking w/o any sob Qualifiers: Pneumonia type: due to unspecified organism Laterality: right Lung location: upper lobe of lung Qualified Code(s): J18.1 - Lobar pneumonia, unspecified organism (3) Anemia SNOMED Code(s): 613805836 ICD Code: D64.9 - ANEMIA, UNSPECIFIED Status: Acute Problem Details: is stable from yesterday with hb 8. Pt had a similar hb in 2016 when she came in for a respiratory infection. Pt had a negative stool for blood on rectal exam today. She is already taking iron and this drop in hb may be a reaction to acute inflammaotry process on top of chronic diseases of RA and MGUS. If hb stable this afternoon will consider discharge with close f/up in clinic. Iron studies ordered (4) COPD exacerbation SNOMED Code(s): 834136947067888 ICD Code: J44.1 - CHRONIC OBSTRUCTIVE PULMONARY DISEASE W (ACUTE) EXACERBATION Status: Acute Problem Details: feels breathing is much better, will dc I v steroid, switch to po prednisone with fast taper if possible as she already has osteoporosis. (5) Blood glucose elevated SNOMED Code(s): 37674381 ICD Code: R73.9 - HYPERGLYCEMIA, UNSPECIFIED Status: Acute Problem Details: likel related to iv steroids- FBS this AM 107 (6) Ulcer SNOMED Code(s): 454722892 ICD Code: NAT9763 - Status: Acute Problem Details: grew out st epi, no pus seen, keep pressure off; f/up in 3 weeks with podiatry - Patient Summary/Data Consults: Consultations 02/19/18 22:00 PT Evaluation and Treatment [CONS] Routine - Patient Instructions Diet: Heart Healthy Diet Activity, Other: keep pressure off ulcer on right toe Other/Special Instructions: Recheck with Dr. Seals in March as planned. Echo test on 02/23, cardiology visit in February. Pulmonary visit for bronchoscopy as planned. Levaquin on discharge (script already at [facility]). Resume spiriva on discharge. Prednisone 40 mg daily for 5 days on discharge and then resume 5 mg daily. Use the albuterol nebulizer 4 x a day as needed for shortness of breath. Get the nebulizer at [facility], script provided - Discharge Plan Prescriptions/Med Rec: Albuterol/Ipratropium [DuoNeb 3.0-0.5 MG/3 ML] 3 ml NEB Q8HRRT #30 neb Home Medications: Home Meds Albuterol [Proair HFA] 1 puff INH Q4HR PRN 12/24/14 [History] Aspirin [Ecotrin] 162.5 mg PO DAILY 12/24/14 [History] Cimetidine 200 mg PO BID 12/24/14 [History] Denosumab [Prolia] 60 mg SUBCUT ASDIRECTED 12/24/14 [History] Hydroxychloroquine Sulfate [Plaquenil] 200 mg PO BID 12/24/14 [History] Calcium Carbonate [Calcium] 1,000 mg PO DAILY 10/29/15 [History] Cholecalciferol (Vitamin D3) [Vitamin D3] 1,000 unit PO DAILY 10/29/15 [History] Gabapentin [Neurontin] 300 mg PO TID 10/29/15 [History] Simvastatin 10 mg PO DAILY 10/21/16 [History] Diltiazem HCl [Cardizem] 30 mg PO TID 01/24/18 [History] Potassium Chloride [Klor-Con 10] 10 meq PO BID 01/24/18 [History] predniSONE [Prednisone] 5 mg PO DAILY 01/24/18 [History] Acetaminophen [Tylenol] 325 mg PO Q4H PRN 02/19/18 [History] Ferrous Gluconate 324 mg PO DAILY 02/19/18 [History] Umeclidinium Brm/Vilanterol Tr [Anoro Ellipta 62.5-25 MCG] 1 puff IH DAILY 02/19 [History] Albuterol/Ipratropium [DuoNeb 3.0-0.5 MG/3 ML] 3 ml NEB Q8HRRT #30 neb 02/22/18 [Rx] Magnesium Oxide 400 mg PO BID tablet 02/22/18 [Rx] predniSONE 30 mg PO WITHBREAKFAST tablet 02/22/18 [Rx] - Discharge Summary/Plan Comment DC Time >30 min.: Yes (had to wait for labs, consult re antibitoics) - Patient Data Vitals - Most Recent: Last Vital Signs Temp 97.1 F 02/22/18 14:00 Pulse 68 02/22/18 14:00 Resp 20 02/22/18 14:00 BP 93/58 L 02/22/18 14:00 Pulse Ox 97 02/22/18 14:00 Weight - Most Recent: 84 lb I&O - Last 24 hours: Intake & Output 02/22/18 02/22/18 02/22/18 06:59 14:59 22:59 Intake Total 450 700 Output Total 650 Balance -200 700 Lab Results - Last 24 hrs: Laboratory Results - last 24 hr 02/21/18 02/22/18 02/22/18 Range/Units 20:15 06:36 08:43 WBC 15.5 H (4.0-10.0) x10^3/uL RBC 2.86 L (4.00-5.50) x10^6/uL Hgb 8.0 L (12.0-16.0) g/dL Hct 26.8 L (33.0-47.0) % MCV 93.7 H (78.0-93.0) fL MCH 28.0 (26.0-32.0) pg MCHC 29.9 L (32.0-36.0) g/dL RDW Coeff of Cornelius 13.9 (10.0-15.0) % Plt Count 497 H (130-400) x10^3/uL Neutrophils % (Manual) 89 H (50-80) % Band Neutrophils % 3 (0-6) % Lymphocytes % (Manual) 5 L (25-50) % Monocytes % (Manual) 3 (2-11) % Platelet Estimate Increased H Hypochromasia 2+ moderate H POC Glucose 325 H 107 H (74-106) mg/dL Iron (50-170) ug/dL TIBC (250-450) ug/dL % Saturation (20.0-50.0) % 02/22/18 02/22/18 Range/Units 16:56 16:56 WBC 12.9 H (4.0-10.0) x10^3/uL RBC 2.93 L (4.00-5.50) x10^6/uL Hgb 8.2 L (12.0-16.0) g/dL Hct 27.6 L (33.0-47.0) % MCV 94.2 H (78.0-93.0) fL MCH 28.0 (26.0-32.0) pg MCHC 29.7 L (32.0-36.0) g/dL RDW Coeff of Cornelius 14.2 (10.0-15.0) % Plt Count 495 H (130-400) x10^3/uL Neutrophils % (Manual) (50-80) % Band Neutrophils % (0-6) % Lymphocytes % (Manual) (25-50) % Monocytes % (Manual) (2-11) % Platelet Estimate Hypochromasia POC Glucose (74-106) mg/dL Iron 80 (50-170) ug/dL TIBC 227 L (250-450) ug/dL % Saturation 35.2 (20.0-50.0) % LORRAINE Results - Last 24 hrs: Microbiology 02/19/18 16:09 Aerobic Blood Culture - Preliminary Blood - Venous - Lab Draw NO GROWTH AFTER 3 DAYS Anaerobic Blood Culture - Preliminary NO GROWTH AFTER 3 DAYS 02/19/18 16:00 Aerobic Blood Culture - Preliminary Blood - Venous NO GROWTH AFTER 3 DAYS Anaerobic Blood Culture - Preliminary NO GROWTH AFTER 3 DAYS 02/21/18 10:30 Wound Culture - Preliminary Toe, Right - Right Fourth Staphylococcus Coagulase Neg Med Orders - Current: Current Medications Discontinued Medications Acetaminophen (Tylenol) 325 mg PO Q4H PRN PRN Reason: Pain Albuterol/Ipratropium (Duoneb 3.0-0.5 Mg/3 Ml) 3 ml NEB Q4HRRT PRN PRN Reason: Cough Albuterol/Ipratropium (Duoneb 3.0-0.5 Mg/3 Ml) 3 ml NEB Q8HRRT [facility] Last Admin: 02/22/18 15:11 Dose: 3 ml Aspirin (Halfprin) 162 mg PO DAILY [facility] Last Admin: 02/22/18 07:42 Dose: 162 mg Azithromycin (Zithromax) 500 mg PO DAILY [facility] Last Admin: 02/22/18 07:43 Dose: 500 mg Ceftriaxone Sodium (Rocephin) 2 gm IVPUSH STAT ONE Stop: 02/19/18 15:57 Last Admin: 02/19/18 16:10 Dose: 2 gm Ciprofloxacin (Ciprofloxacin Hcl) 250 mg PO BID [facility] Diltiazem HCl (Cardizem) 30 mg PO TID [facility] Last Admin: 02/22/18 11:35 Dose: 30 mg Doxycycline Hyclate (Vibramycin) 100 mg PO BID [facility] Enoxaparin Sodium (Lovenox) 30 mg SUBCUT Q24H [facility] Last Admin: 02/21/18 20:19 Dose: 30 mg Famotidine (Pepcid) 10 mg PO BID [facility] Last Admin: 02/22/18 07:42 Dose: 10 mg Gabapentin (Neurontin) 300 mg PO TID [facility] Last Admin: 02/22/18 11:35 Dose: 300 mg Azithromycin 500 mg/ Sodium (Chloride) 250 mls @ 250 mls/hr IV ONETIME ONE Stop: 02/19/18 18:08 Last Admin: 02/19/18 18:42 Dose: 250 mls/hr Vancomycin HCl 1 gm/ Sodium (Chloride) 250 mls @ 250 mls/hr IV STAT ONE Stop: 02/19/18 18:10 Last Admin: 02/19/18 17:39 Dose: 250 mls/hr Lactated Ringer's (Ringers, Lactated) 1,000 mls @ 100 mls/hr IV ASDIRECTED [facility] Stop: 02/20/18 03:44 Last Admin: 02/19/18 18:44 Dose: 100 mls/hr Piperacillin Sod/Tazobactam (Sod 4.5 gm/ Sodium Chloride) 100 mls @ 200 mls/hr IV ONETIME ONE Stop: 02/19/18 22:29 Last Admin: 02/19/18 23:21 Dose: 200 mls/hr Piperacillin Sod/Tazobactam (Sod 3.375 gm/ Sodium Chloride) 100 mls @ 25 mls/ hr IV Q8H [facility] Last Admin: 02/22/18 17:00 Dose: Not Given Magnesium Oxide (Magnesium Oxide) 400 mg PO BID [facility] Last Admin: 02/22/18 07:42 Dose: 400 mg Methylprednisolone Sodium Succinate (Solu-Medrol) 40 mg IVPUSH Q12H [facility] Last Admin: 02/21/18 06:15 Dose: 40 mg Prednisone (Prednisone) 40 mg PO WITHBREAKFAST [facility] Last Admin: 02/22/18 07:42 Dose: 40 mg Prednisone (Prednisone) 30 mg PO WITHBREAKFAST [facility] Promethazine HCl (Phenergan) 25 mg PO Q6H PRN PRN Reason: Nausea/Vomiting Simvastatin (Zocor) 10 mg PO DAILY [facility] Last Admin: 02/22/18 07:42 Dose: 10 mg Sodium Chloride (Saline Flush) 10 ml FLUSH ASDIRECTED PRN PRN Reason: Keep Vein Open Last Admin: 02/21/18 06:15 Dose: 10 ml
[2018-02-23] MEDS ORDERED: predniSONE 10 MG Tab PO SCH (08:00)
[2018-02-23] MEDS ORDERED: Ciprofloxacin 250 MG Tab PO SCH (08:00)
[2018-02-23] MEDS ORDERED: Doxycycline 100 MG Cap PO SCH (08:00)
== END 2018-02-22 18:58 | disposition home or self-care (01) | DRG 871 ==
LOC: VM.ED 15:26 → VM.MS 17:12
PROVIDERS: ADMIT Internal Medicine; ATTEND Internal Medicine
DX: A41.9 Sepsis, unspecified organism (principal); J18.9 Pneumonia, unspecified organism; I48.91 Unspecified atrial fibrillation; E78.00 Pure hypercholesterolemia, unspecified; J44.0 Chronic obstructive pulmonary disease with (acute) lower respiratory infection; I47.2 Ventricular tachycardia; E44.0 Moderate protein-calorie malnutrition; Z68.1 Body mass index [BMI] 19.9 or less, adult; J44.1 Chronic obstructive pulmonary disease with (acute) exacerbation; E83.42 Hypomagnesemia; M81.0 Age-related osteoporosis without current pathological fracture; D63.8 Anemia in other chronic diseases classified elsewhere; Z79.52 Long term (current) use of systemic steroids; R73.9 Hyperglycemia, unspecified; T38.0X5A Adverse effect of glucocorticoids and synthetic analogues, initial encounter; Z86.73 Personal history of transient ischemic attack (TIA), and cerebral infarction without residual deficits; L89.899 Pressure ulcer of other site, unspecified stage; L84 Corns and callosities; I05.0 Rheumatic mitral stenosis; M06.9 Rheumatoid arthritis, unspecified; Z87.01 Personal history of pneumonia (recurrent); Z87.891 Personal history of nicotine dependence; Z98.890 Other specified postprocedural states; Z88.8 Allergy status to other drugs, medicaments and biological substances; Z79.1 Long term (current) use of non-steroidal anti-inflammatories (NSAID); Z79.82 Long term (current) use of aspirin; Z83.6 Family history of other diseases of the respiratory system; Z79.899 Other long term (current) drug therapy
CPT/HCPCS: 36415; 36600; 71045; 71046; 80048; 80053; 81001; 82150; 82274; 82803; 82962; 83540; 83550; 83605; 83735; 83880; 84100; 85007; 85025; 85027; 85610; 86140; 87040; 87070; 93005; 94640; 94760; 96374; 97161-GP; 99284-GF-25; 99285; A9270-GY; J0456; J0696; J1650; J2543; J2920; J3370; J7050; J7120

== ENCOUNTER 2019-10-31 17:09 | Emergency (ER) | payer MEDICARE ==
--- NOTE | 2019-10-31 17:31 | EDM.PDOC ---
ED HPI GENERAL MEDICAL PROBLEM - General Chief Complaint: Respiratory Problem Stated Complaint: SOB Time Seen by Provider: 10/31/19 17:15 Source of Information: Reports: Patient, Family History Limitations: Reports: Respiratory Distress - History of Present Illness INITIAL COMMENTS - FREE TEXT/NARRATIVE: Patient presents to ER with increased shortness of breath. States has been noting an increased cough as of late and low grade fevers off an on. Yesterday , coughed really hard and has had discomfort in her back since that time. Admits she coughed up a large amount of green sputum at that time and has continued to have productive cough. Normally on 4.5 liters of oxygen at home. Has history of COPD and cardiac. Has not been eating or drinking well the last 2 days. "takes too much energy to eat". Denies any nausea/vomiting/diarrhea or abdominal pain. No history of edema. Onset: Gradual Duration: Day(s):, Getting Worse Location: Reports: Chest Quality: Reports: Ache Severity: Moderate Improves with: Reports: Rest Worsens with: Reports: Other (coughing) Associated Symptoms: Reports: Cough, cough w sputum, Fever/Chills, Loss of Appetite, Shortness of Breath, Weakness. Denies: Confusion, Chest Pain, Nausea/ Vomiting Upper Back Pain Score (Numeric/FACES): 4 - Related Data Allergies Allergy/AdvReac Type Severity Reaction Status Date / Time hydrocodone AdvReac Dizziness Verified 10/31/19 18:19 meperidine HCl [From Demerol] AdvReac Vomiting Verified 10/31/19 18:19 tramadol AdvReac Nausea Verified 10/31/19 18:19 Home Meds: Home Meds Albuterol [Proair HFA] 1 puff INH Q4HR PRN 12/24/14 [History] Aspirin [Ecotrin] 162.5 mg PO DAILY 12/24/14 [History] Cimetidine 200 mg PO BID 12/24/14 [History] Denosumab [Prolia] 60 mg SUBCUT ASDIRECTED 12/24/14 [History] Hydroxychloroquine Sulfate [Plaquenil] 200 mg PO BID 12/24/14 [History] Calcium Carbonate [Calcium] 1,000 mg PO DAILY 10/29/15 [History] Cholecalciferol (Vitamin D3) [Vitamin D3] 1,000 unit PO DAILY 10/29/15 [History] Gabapentin [Neurontin] 300 mg PO TID 10/29/15 [History] Simvastatin 10 mg PO DAILY 10/21/16 [History] Diltiazem HCl [Cardizem] 30 mg PO TID 01/24/18 [History] Potassium Chloride [Klor-Con 10] 10 meq PO BID 01/24/18 [History] predniSONE [Prednisone] 5 mg PO DAILY 01/24/18 [History] Acetaminophen [Tylenol] 325 mg PO Q4H PRN 02/19/18 [History] Ferrous Gluconate 324 mg PO DAILY 02/19/18 [History] Umeclidinium Brm/Vilanterol Tr [Anoro Ellipta 62.5-25 MCG] 1 puff IH DAILY 02/19 [History] Albuterol/Ipratropium [DuoNeb 3.0-0.5 MG/3 ML] 3 ml NEB Q8HRRT #30 neb 02/22/18 [Rx] Magnesium Oxide 400 mg PO BID tablet 02/22/18 [Rx] predniSONE 30 mg PO WITHBREAKFAST tablet 02/22/18 [Rx] Past Medical History HEENT History: Reports: Epistaxis Cardiovascular History: Reports: Afib, Heart Murmur, High Cholesterol, Other ( See Below) Other Cardiovascular History: proxysmal ventricular tachycardia, mitral stenosis , mitral insufficiency, chronic chest pain Respiratory History: Reports: COPD, Other (See Below) Other Respiratory History: mycobacterium avium-intracellulare complex Gastrointestinal History: Reports: GERD, Hemorrhoids, Pancreatitis Genitourinary History: Reports: None 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: Musculoskeletal History: Reports: Osteoporosis, RA, Other (See Below) Other Musculoskeletal History: chronic pain, sciatic pain, left shoulder pain, radicular leg pain Neurological History: Reports: CVA Psychiatric History: Reports: None Endocrine/Metabolic History: Reports: None Hematologic History: Reports: Anemia Immunologic History: Reports: Immunosuppression Oncologic (Cancer) History: Reports: None Dermatologic History: Reports: None - Infectious Disease History Infectious Disease History: Reports: Influenza - Past Surgical History HEENT Surgical History: Reports: Cataract Surgery, Tonsillectomy, Other (See Below) Respiratory Surgical History: Reports: Lung Resection, Other (See Below) GI Surgical History: Reports: Cholecystectomy Female Surgical History: Reports: Tubal Ligation Dermatological Surgical History: Reports: None Social & Family History - Family History Family Medical History: Noncontributory Respiratory: Reports: Asthma, COPD Endocrine/Metabolic: Reports: Diabetes, type II Oncologic: Reports: Pancreatic - Caffeine Use Caffeine Use: Reports: Coffee - Living Situation & Occupation Living situation: Reports: , with Significant Other ED ROS GENERAL - Review of Systems Review Of Systems: See Below Constitutional: Reports: Fever, Chills, Malaise, Weakness, Fatigue, Decreased Appetite HEENT: Reports: Rhinitis. Denies: Ear Pain, Sinus Problem, Throat Pain Respiratory: Reports: Shortness of Breath, Pleuritic Chest Pain, Cough, Sputum Cardiovascular: Denies: Chest Pain, Edema, Lightheadedness Endocrine: Reports: Fatigue GI/Abdominal: Denies: Abdominal Pain, Nausea, Vomiting : Reports: No Symptoms Musculoskeletal: Reports: No Symptoms Skin: Reports: No Symptoms Neurological: Reports: Weakness ED EXAM, GENERAL - Physical Exam Exam: See Below Exam Limited By: Respiratory Distress General Appearance: Alert, WD/WN, Mild Distress Ears: Normal External Exam, Normal TMs Nose: Normal Inspection, Normal Mucosa, No Blood Throat/Mouth: Normal Inspection, Normal Oropharynx Head: Normocephalic Neck: Normal Inspection, Supple, Non-Tender Respiratory/Chest: Respiratory Distress, Decreased Breath Sounds, Crackles (LLL) Cardiovascular: Regular Rate, Rhythm GI/Abdominal: Normal Bowel Sounds, Soft, Non-Tender Extremities: Normal Inspection, No Pedal Edema Neurological: Alert, Oriented Skin Exam: Warm, Dry Course - Vital Signs Last Recorded V/S: Last Vital Signs Temp 97.1 F 10/31/19 17:20 Pulse 98 10/31/19 17:20 Resp 24 H 10/31/19 17:20 BP 151/68 H 10/31/19 17:20 Pulse Ox 92 L 10/31/19 17:20 - Orders/Labs/Meds Orders: Active Orders 24 hr Category Date Time Status EKG 12 Lead [EKG Documentation Completion] [RC] STAT Care 10/31/19 17:20 Active CULTURE BLOOD [BC] Stat Lab 10/31/19 17:43 Received CULTURE BLOOD [BC] Stat Lab 10/31/19 17:48 Results Blood Culture x2 Reflex Set [OM.PC] Stat Oth 10/31/19 17:21 Ordered Labs: Laboratory Tests 10/31/19 10/31/19 10/31/19 Range/Units 17:43 17:43 17:43 WBC 10.3 H (4.0-10.0) x10^3/uL RBC 3.01 L (4.00-5.50) x10^6/uL Hgb 8.1 L (12.0-16.0) g/dL Hct 29.6 L (33.0-47.0) % MCV 98.3 H D (78.0-93.0) fL MCH 26.9 (26.0-32.0) pg MCHC 27.4 L (32.0-36.0) g/dL RDW Coeff of Cornelius 15.0 (10.0-15.0) % Plt Count 420 H D (130-400) x10^3/uL Neut % (Auto) 85.5 H (50.0-80.0) % Lymph % (Auto) 6.1 L (25.0-50.0) % [place] % (Auto) 5.8 (2.0-11.0) % Eos % (Auto) 2.4 (0.0-4.0) % Baso % (Auto) 0.2 (0.2-1.2) % PT (10.0-12.8) SEC INR (2.0-3.5) D-Dimer, Quantitative 0.59 H (<=0.58) mg/LFEU Sodium 147 H (136-145) mmol/L Potassium 4.0 (3.5-5.1) mmol/L Chloride 104 (98-107) mmol/L Carbon Dioxide 39 H D (21-32) mmol/L Anion Gap 8.0 L (10-20) mmol/L BUN 17 (7-18) mg/dL Creatinine 0.8 (0.55-1.02) mg/dL Est Cr Clr Drug Dosing TNP Estimated GFR (MDRD) > 60 Glucose 104 (74-106) mg/dL Lactic Acid (0.4-2.0) mmol/L Calcium 10.7 H D (8.5-10.1) mg/dL Corrected Calcium 11.82 H D (8.5-10.1) mg/dL Total Bilirubin 0.2 (0.2-1.0) mg/dL AST 25 (15-37) U/L ALT 13 L (14-59) U/L Alkaline Phosphatase 64 (46-116) U/L Troponin I < 0.017 (<=0.056) ng/mL C-Reactive Protein 12.8 H (<=0.9) mg/dL NT-Pro-B Natriuret Pep 690 H (<=450) pg/mL Total Protein 6.9 (6.4-8.2) g/dL Albumin 2.6 L (3.4-5.0) g/dL Globulin 4.3 Albumin/Globulin Ratio 0.60 10/31/19 10/31/19 Range/Units 17:43 17:43 WBC (4.0-10.0) x10^3/uL RBC (4.00-5.50) x10^6/uL Hgb (12.0-16.0) g/dL Hct (33.0-47.0) % MCV (78.0-93.0) fL MCH (26.0-32.0) pg MCHC (32.0-36.0) g/dL RDW Coeff of Cornelius (10.0-15.0) % Plt Count (130-400) x10^3/uL Neut % (Auto) (50.0-80.0) % Lymph % (Auto) (25.0-50.0) % [place] % (Auto) (2.0-11.0) % Eos % (Auto) (0.0-4.0) % Baso % (Auto) (0.2-1.2) % PT 21.2 H (10.0-12.8) SEC INR 1.9 L (2.0-3.5) D-Dimer, Quantitative (<=0.58) mg/LFEU Sodium (136-145) mmol/L Potassium (3.5-5.1) mmol/L Chloride (98-107) mmol/L Carbon Dioxide (21-32) mmol/L Anion Gap (10-20) mmol/L BUN (7-18) mg/dL Creatinine (0.55-1.02) mg/dL Est Cr Clr Drug Dosing Estimated GFR (MDRD) Glucose (74-106) mg/dL Lactic Acid 1.1 (0.4-2.0) mmol/L Calcium (8.5-10.1) mg/dL Corrected Calcium (8.5-10.1) mg/dL Total Bilirubin (0.2-1.0) mg/dL AST (15-37) U/L ALT (14-59) U/L Alkaline Phosphatase (46-116) U/L Troponin I (<=0.056) ng/mL C-Reactive Protein (<=0.9) mg/dL NT-Pro-B Natriuret Pep (<=450) pg/mL Total Protein (6.4-8.2) g/dL Albumin (3.4-5.0) g/dL Globulin Albumin/Globulin Ratio - Re-Assessments/Exams Free Text/Narrative Re-Assessment/Exam: 10/31/19 18:33 Patient's labs show stable WBC. CRP is elevated at 12.8. ProBNP is high at 659. She has no known history of CHF. Discussed issues that could contribute to her shortness of breath including her recent pneumonia, COPD and now mild fluid overload. Will start her on low dose Lasix for the next 5 days and have her reach out to DR. Seals with update and see if needs to continue on any further doses. Chest xray has shown mild improvement of recent consolidations in her lung, will need to address also if needs further antibiotics or change to a different one. Departure - Departure Time of Disposition: 18:36 Disposition: Home, Self-Care 01 Condition: Fair Clinical Impression: Congestive heart failure Qualifiers: Heart failure type: systolic Heart failure chronicity: acute on chronic Qualified Code(s): I50.23 - Acute on chronic systolic (congestive) heart failure COPD (chronic obstructive pulmonary disease) Qualifiers: COPD type: COPD with acute exacerbation Qualified Code(s): J44.1 - Chronic obstructive pulmonary disease with (acute) exacerbation Pneumonia Qualifiers: Pneumonia type: due to unspecified organism Laterality: right Lung location: upper lobe of lung Qualified Code(s): J18.1 - Lobar pneumonia, unspecified organism - Discharge Information *PRESCRIPTION DRUG MONITORING PROGRAM REVIEWED*: No *COPY OF PRESCRIPTION DRUG MONITORING REPORT IN PATIENT KIM: No Forms: ED Department Discharge Additional Instructions: 1. Rest 2. Usual meds and inhalers 3. Contact DR. Seals tomorrow in regards to need for further antibiotics. Chest xray does show mild improvement, WBC is normal, CRP is 12.[address] Seals that ProBNP is elevated at 690 and you will start Lasix 20 mg daily for 5 days. Will need to address if any further need for this. 5. Call with any questions or concerns. Sepsis Event Note - Focused Exam Vital Signs: Vital Signs Temp Pulse Resp BP Pulse Ox 10/31/19 17:20 97.1 F 98 24 H 151/68 H 92 L Date Exam was Performed: 10/31/19 Time Exam was Performed: 18:33 - My Orders Last 24 Hours: My Active Orders 10/31/19 17:20 EKG 12 Lead [EKG Documentation Completion] [RC] STAT 10/31/19 17:21 Blood Culture x2 Reflex Set [OM.PC] Stat 10/31/19 17:43 CULTURE BLOOD [BC] Stat 10/31/19 17:48 CULTURE BLOOD [BC] Stat - Assessment/Plan Last 24 Hours: My Active Orders 10/31/19 17:20 EKG 12 Lead [EKG Documentation Completion] [RC] STAT 10/31/19 17:21 Blood Culture x2 Reflex Set [OM.PC] Stat 10/31/19 17:43 CULTURE BLOOD [BC] Stat 10/31/19 17:48 CULTURE BLOOD [BC] Stat
--- NOTE | 2019-10-31 18:00 | CR ---
[id number] RAD/RAD Chest PA And Lateral EXAM: FRONTAL AND LATERAL CHEST INDICATION: SHORTNESS OF BREATH. COMPARISON: August 26, 2019. DISCUSSION: There is extensive bullous emphysema. Right upper and left lower lobe consolidation with apparent cavitation and air-fluid levels, mildly improved. Multifocal parenchymal scarring. Surgical changes left hilum. Normal heart size. Small bilateral effusions versus pleural thickening. IMPRESSION: 1. Bullous emphysema with superimposed probable cavitary consolidation right upper and left lower lobes, stable to mildly improved. Marc Pizarro MD 10/31/19 [id number] Thank you for allowing us to participate in the care of your patient.
[2019-10-31 18:21] LABS: CHLORIDE,CL 104 mmol/L (98-107); SODIUM,NA 147 mmol/L (136-145)
[2019-10-31] MEDS ORDERED: Furosemide 20 MG Tab PO ONE (18:37)
[2019-10-31 18:50] VITALS: BP 145/80; PULSE 79
== END 2019-10-31 19:00 | disposition home or self-care (01) ==
LOC: VM.ED 17:09
DX: I50.23 Acute on chronic systolic (congestive) heart failure (principal); J44.1 Chronic obstructive pulmonary disease with (acute) exacerbation; J18.1 Lobar pneumonia, unspecified organism; I48.91 Unspecified atrial fibrillation; E78.00 Pure hypercholesterolemia, unspecified; K21.9 Gastro-esophageal reflux disease without esophagitis; Z88.5 Allergy status to narcotic agent; Z88.8 Allergy status to other drugs, medicaments and biological substances; Z79.82 Long term (current) use of aspirin; Z79.899 Other long term (current) drug therapy; Z86.73 Personal history of transient ischemic attack (TIA), and cerebral infarction without residual deficits
CPT/HCPCS: 36415; 71046; 80053; 83605; 83880; 84484; 85025; 85379; 85610; 86140; 87040; 93005; 99284-GF; 99285-25; A9270-GY